=== PATIENT | female | born 1970 | race African-American/Black ===

== ENCOUNTER 2017-05-09 12:22 | Inpatient (IN) | payer MEDICARE, OTHER ==
[2017-05-09] MEDS ORDERED: LORazepam 2 MG/ML INJ IV STA ×2 (12:26→15:43)
[2017-05-09] MEDS ORDERED: diphenhydrAMINE 50 MG/ML 1 ML VIAL IVP STA (12:54)
[2017-05-09 12:56] LABS: Basophils # (A) 0.1 k/uL (0-0.2); Basophils % (A) 0 %; Eosinophils # (A) 0.5 k/uL (0-0.7); Eosinophils % (A) 4 %; HCT 40.7 % (34.0-46.0); HGB 12.9 gm/dL (11.4-16.0); Lymphocytes # (A) 3.8 k/uL (1.0-4.8); Lymphocytes % (A) 29 %; MCH 27.5 pg (25.0-35.0); MCHC 31.7 g/dL (31.0-37.0); MCV 86.7 fL (80.0-100.0); Mean Platelet Volume 7.1; Monocytes # (A) 0.6 k/uL (0-1.0); Monocytes % (A) 5 %; Neutrophils # (A) 7.8 k/uL (1.3-7.7); Neutrophils % (A) 60 %; Platelet Count 527 k/uL (150-450)
[2017-05-09 12:59] LABS: Appearance,Urine Clear (Clear); Bacteria,Urine Rare /hpf; Bilirubin,Urine Negative (Negative); Blood,Urine Negative (Negative); Color,Urine Yellow; Glucose,Urine (UA) Negative (Negative); Ketones,Urine Negative (Negative); Leukocyte Esterase,Urine Negative (Negative); Mucus,Urine Many /hpf; Nitrite,Urine Negative (Negative); Protein,Urine 1+ (Negative); RBC,Urine 2 /hpf (0-5); Specific Gravity,Urine 1.028 (1.001-1.035); Squamous Epithelial Cell,Urine 2 /hpf (0-4); WBC,Urine 2 /hpf (0-5)
--- NOTE | 2017-05-09 13:03 | ED ---
General Adult HPI - General Chief complaint: Altered Mental Status Stated complaint: altered mental status Time Seen by Provider: 05/09/17 12:26 Source: EMS, RN notes reviewed, old records reviewed Mode of arrival: EMS Limitations: no limitations - History of Present Illness Initial comments: 47-year-old female presenting with suspected overdose. No history obtained from the patient. EMS report family member stated that she has had involuntary movements throughout the day today. She is alert and oriented 1. She will follow simple commands but is not answering any questions. Patient's brother states that he believes this was a suicide attempt, she took an unknown amount of medication. He states she has been depressed over the past several days. Gabapentin and Abilify prescriptions are brought in by EMS, does appear to be significant amount of absent gabapentin. - Related Data Home Medications Medication Instructions Recorded Confirmed Gabapentin 600 mg PO QID 06/15/14 05/09/17 ARIPiprazole [Abilify] 5 mg PO HS 05/09/17 05/09/17 DULoxetine HCL [Cymbalta] 60 mg PO DAILY 05/09/17 05/09/17 HYDROcodone/APAP 10-325MG [[place] 1 tab PO TID PRN 05/09/17 05/09/17 10-325] Levothyroxine Sodium [Synthroid] 100 mcg PO DAILY 05/09/17 05/09/17 Meloxicam [Mobic] 7.5 mg PO BID PRN 05/09/17 05/09/17 Omeprazole 20 mg PO DAILY 05/09/17 05/09/17 Thyroid, Pork [[place] Thyroid] 30 mg PO DAILY 05/09/17 05/09/17 rOPINIRole HCL [Requip] 0.5 mg PO HS 05/09/17 05/09/17 Allergies Allergy/AdvReac Type Severity Reaction Status Date / Time No Known Allergies Allergy Verified 05/09/17 12:57 Review of Systems ROS Statement: Those systems with pertinent positive or pertinent negative responses have been documented in the HPI. ROS Other: All systems not noted in ROS Statement are negative. Past Medical History Past Medical History: Thyroid Disorder Additional Past Medical History / Comment(s): THYROID NODULE, CHRONIC BACK PAIN History of Any Multi-Drug Resistant Organisms: None Reported Past Surgical History: Back Surgery, Section, Hysterectomy, Tonsillectomy Additional Past Surgical History / Comment(s): [place] CERVICAL FUSION X2 Past Anesthesia/Blood Transfusion Reactions: No Reported Reaction Past Psychological History: No Psychological Hx Reported Smoking Status: Current every day smoker Past Alcohol Use History: Unable to Obtain Past Drug Use History: Unable to Obtain - Past Family History Mother Family Medical History: Cancer Additional Family Medical History / Comment(s): LUNG General Exam Limitations: no limitations General appearance: alert, anxious Head exam: Present: atraumatic, normocephalic Eye exam: Present: normal appearance, PERRL Neck exam: Present: normal inspection. Absent: tenderness, meningismus Respiratory exam: Present: normal lung sounds bilaterally. Absent: respiratory distress Cardiovascular Exam: Present: regular rate, normal rhythm GI/Abdominal exam: Present: soft, diminished bowel sounds. Absent: distended, tenderness Extremities exam: Present: normal inspection, full ROM, normal capillary refill. Absent: pedal edema, calf tenderness Neurological exam: Absent: oriented X3, motor sensory deficit Skin exam: Present: warm, dry, intact. Absent: cyanosis, diaphoretic Course Vital Signs 05/09/17 05/09/17 05/09/17 12:29 12:54 13:32 Temperature 99.0 F Pulse Rate 100 75 77 Respiratory 18 18 18 Rate Blood Pressure 175/101 148/68 155/69 O2 Sat by Pulse 98 100 100 Oximetry 05/09/17 14:58 Temperature Pulse Rate 86 Respiratory 16 Rate Blood Pressure 165/80 O2 Sat by Pulse 100 Oximetry - Reevaluation(s) Reevaluation #1: 05/09/17 15:18 Case discussed with poison control, they recommend monitoring QT, electrolyte replacement as needed, and intubation for airway protection as needed. Patient is currently having spontaneous movements, she has gag reflex, she is protecting her airway. EKG Findings - EKG Comments: EKG Findings:: EKG obtained at 1245, shows normal sinus rhythm with sinus arrhythmia, prolonged QT at 483, ventricular rate 78, [place] interval 132, QRS duration 88. Repeat EKG at 1454 shows normal sinus rhythm with sinus arrhythmia , prolonged QT at 497, ventricular rate 78, [place] interval 128, QRS duration 94 Medical Decision Making - Medical Decision Making 47 old female presenting with suspected gabapentin overdose. Patient has nonfocal neurological exam. She is moving all extremities on initial evaluation , she is unable to give history, history obtained from EMS and the patient's family. Her brother believes this was a suicide attempt. CT is obtained, negative for acute intracranial hemorrhage or mass effect. Chest x-ray negative for focal pneumonia or acute findings. Mild leukocytosis at 13.0, electrolytes within normal limits. Urine drug screen positive for TCA, alcohol , Tylenol, and salicylates are negative. Case discussed with poison control, they recommend supportive care, monitoring electrolytes. Patient is observed in the emergency department for 4 hours, she has no deterioration in her respiratory status, she has positive gag, she is protecting her airway and handling her secretions. She will be admitted awaiting return to baseline mental status, poison control Will follow, psychiatry will be placed on consult for evaluation of suicide attempt. - Lab Data Result diagrams: 05/09/17 12:38 05/09/17 12:38 Lab Results 05/09/17 05/09/17 05/09/17 Range/Units 12:38 12:38 12:38 WBC 13.0 H (3.8-10.6) k/uL RBC 4.70 (3.80-5.40) m/uL Hgb 12.9 (11.4-16.0) gm/dL Hct 40.7 (34.0-46.0) % MCV 86.7 (80.0-100.0) fL MCH 27.5 (25.0-35.0) pg MCHC 31.7 (31.0-37.0) g/dL RDW 15.0 (11.5-15.5) % Plt Count 527 H (150-450) k/uL Neutrophils % 60 % Lymphocytes % 29 % Monocytes % 5 % Eosinophils % 4 % Basophils % 0 % Neutrophils # 7.8 H (1.3-7.7) k/uL Lymphocytes # 3.8 (1.0-4.8) k/uL Monocytes # 0.6 (0-1.0) k/uL Eosinophils # 0.5 (0-0.7) k/uL Basophils # 0.1 (0-0.2) k/uL PT (9.0-12.0) sec INR (<1.2) APTT (22.0-30.0) sec Sodium 141 (137-145) mmol/L Potassium 4.8 (3.5-5.1) mmol/L Chloride 106 (98-107) mmol/L Carbon Dioxide 25 (22-30) mmol/L Anion Gap 10 mmol/L BUN 19 H (7-17) mg/dL Creatinine 0.80 (0.52-1.04) mg/dL Est GFR (CKD-EPI)AfAm >90 (>60 ml/min/1.73 sqM) Est GFR (CKD-EPI)NonAf 88 (>60 ml/min/1.73 sqM) Glucose 111 H (74-99) mg/dL Plasma Lactic Acid Simón (0.7-2.0) mmol/L Calcium 10.1 (8.4-10.2) mg/dL Phosphorus (2.5-4.5) mg/dL Magnesium (1.6-2.3) mg/dL Total Bilirubin 0.2 (0.2-1.3) mg/dL AST 14 (14-36) U/L ALT 11 (9-52) U/L Alkaline Phosphatase 96 (38-126) U/L Ammonia (<30) umol/L Total Creatine Kinase 68 (30-135) U/L CK-MB (CK-2) 0.5 (0.0-2.4) ng/mL CK-MB (CK-2) Rel Index 0.7 Troponin I <0.012 (0.000-0.034) ng/mL Total Protein 7.8 (6.3-8.2) g/dL Albumin 4.1 (3.5-5.0) g/dL Urine Color Urine Appearance (Clear) Urine pH (5.0-8.0) Ur Specific [place] (1.001-1.035) Urine Protein (Negative) Urine Glucose (UA) (Negative) Urine Ketones (Negative) Urine Blood (Negative) Urine Nitrite (Negative) Urine Bilirubin (Negative) Urine Urobilinogen (<2.0) mg/dL Ur Leukocyte Esterase (Negative) Urine RBC (0-5) /hpf Urine WBC (0-5) /hpf Ur Squamous Epith Cells (0-4) /hpf Urine Bacteria (None) /hpf Urine Mucus (None) /hpf Salicylates mg/dL Urine Opiates Screen (NotDetected) Ur Oxycodone Screen (NotDetected) Urine Methadone Screen (NotDetected) Ur Propoxyphene Screen (NotDetected) Acetaminophen ug/mL Ur Barbiturates Screen (NotDetected) U Tricyclic Antidepress (NotDetected) Ur Phencyclidine Scrn (NotDetected) Ur Amphetamines Screen (NotDetected) U Methamphetamines Scrn (NotDetected) U Benzodiazepines Scrn (NotDetected) Urine Cocaine Screen (NotDetected) U Marijuana (THC) Screen (NotDetected) Serum Alcohol mg/dL 05/09/17 05/09/17 05/09/17 Range/Units 12:38 12:38 12:38 WBC (3.8-10.6) k/uL RBC (3.80-5.40) m/uL Hgb (11.4-16.0) gm/dL Hct (34.0-46.0) % MCV (80.0-100.0) fL MCH (25.0-35.0) pg MCHC (31.0-37.0) g/dL RDW (11.5-15.5) % Plt Count (150-450) k/uL Neutrophils % % Lymphocytes % % Monocytes % % Eosinophils % % Basophils % % Neutrophils # (1.3-7.7) k/uL Lymphocytes # (1.0-4.8) k/uL Monocytes # (0-1.0) k/uL Eosinophils # (0-0.7) k/uL Basophils # (0-0.2) k/uL PT 9.4 (9.0-12.0) sec INR 0.9 (<1.2) APTT 22.6 (22.0-30.0) sec Sodium (137-145) mmol/L Potassium (3.5-5.1) mmol/L Chloride (98-107) mmol/L Carbon Dioxide (22-30) mmol/L Anion Gap mmol/L BUN (7-17) mg/dL Creatinine (0.52-1.04) mg/dL Est GFR (CKD-EPI)AfAm (>60 ml/min/1.73 sqM) Est GFR (CKD-EPI)NonAf (>60 ml/min/1.73 sqM) Glucose (74-99) mg/dL Plasma Lactic Acid Simón 2.1 H* (0.7-2.0) mmol/L Calcium (8.4-10.2) mg/dL Phosphorus (2.5-4.5) mg/dL Magnesium (1.6-2.3) mg/dL Total Bilirubin (0.2-1.3) mg/dL AST (14-36) U/L ALT (9-52) U/L Alkaline Phosphatase (38-126) U/L Ammonia 22 (<30) umol/L Total Creatine Kinase (30-135) U/L CK-MB (CK-2) (0.0-2.4) ng/mL CK-MB (CK-2) Rel Index Troponin I (0.000-0.034) ng/mL Total Protein (6.3-8.2) g/dL Albumin (3.5-5.0) g/dL Urine Color Yellow Urine Appearance Clear (Clear) Urine pH 6.0 (5.0-8.0) Ur Specific [place] 1.028 (1.001-1.035) Urine Protein 1+ H (Negative) Urine Glucose (UA) Negative (Negative) Urine Ketones Negative (Negative) Urine Blood Negative (Negative) Urine Nitrite Negative (Negative) Urine Bilirubin Negative (Negative) Urine Urobilinogen 3.0 (<2.0) mg/dL Ur Leukocyte Esterase Negative (Negative) Urine RBC 2 (0-5) /hpf Urine WBC 2 (0-5) /hpf Ur Squamous Epith Cells 2 (0-4) /hpf Urine Bacteria Rare H (None) /hpf Urine Mucus Many H (None) /hpf Salicylates mg/dL Urine Opiates Screen Not Detected (NotDetected) Ur Oxycodone Screen Not Detected (NotDetected) Urine Methadone Screen Not Detected (NotDetected) Ur Propoxyphene Screen Not Detected (NotDetected) Acetaminophen ug/mL Ur Barbiturates Screen Not Detected (NotDetected) U Tricyclic Antidepress Detected H (NotDetected) Ur Phencyclidine Scrn Not Detected (NotDetected) Ur Amphetamines Screen Not Detected (NotDetected) U Methamphetamines Scrn Not Detected (NotDetected) U Benzodiazepines Scrn Not Detected (NotDetected) Urine Cocaine Screen Not Detected (NotDetected) U Marijuana (THC) Screen Not Detected (NotDetected) Serum Alcohol mg/dL 05/09/17 05/09/17 05/09/17 Range/Units 13:59 15:10 15:10 WBC (3.8-10.6) k/uL RBC (3.80-5.40) m/uL Hgb (11.4-16.0) gm/dL Hct (34.0-46.0) % MCV (80.0-100.0) fL MCH (25.0-35.0) pg MCHC (31.0-37.0) g/dL RDW (11.5-15.5) % Plt Count (150-450) k/uL Neutrophils % % Lymphocytes % % Monocytes % % Eosinophils % % Basophils % % Neutrophils # (1.3-7.7) k/uL Lymphocytes # (1.0-4.8) k/uL Monocytes # (0-1.0) k/uL Eosinophils # (0-0.7) k/uL Basophils # (0-0.2) k/uL PT (9.0-12.0) sec INR (<1.2) APTT (22.0-30.0) sec Sodium (137-145) mmol/L Potassium (3.5-5.1) mmol/L Chloride (98-107) mmol/L Carbon Dioxide (22-30) mmol/L Anion Gap mmol/L BUN (7-17) mg/dL Creatinine (0.52-1.04) mg/dL Est GFR (CKD-EPI)AfAm (>60 ml/min/1.73 sqM) Est GFR (CKD-EPI)NonAf (>60 ml/min/1.73 sqM) Glucose (74-99) mg/dL Plasma Lactic Acid Simón 1.2 (0.7-2.0) mmol/L Calcium (8.4-10.2) mg/dL Phosphorus 4.4 (2.5-4.5) mg/dL Magnesium 2.1 (1.6-2.3) mg/dL Total Bilirubin (0.2-1.3) mg/dL AST (14-36) U/L ALT (9-52) U/L Alkaline Phosphatase (38-126) U/L Ammonia (<30) umol/L Total Creatine Kinase (30-135) U/L CK-MB (CK-2) (0.0-2.4) ng/mL CK-MB (CK-2) Rel Index Troponin I (0.000-0.034) ng/mL Total Protein (6.3-8.2) g/dL Albumin (3.5-5.0) g/dL Urine Color Urine Appearance (Clear) Urine pH (5.0-8.0) Ur Specific [place] (1.001-1.035) Urine Protein (Negative) Urine Glucose (UA) (Negative) Urine Ketones (Negative) Urine Blood (Negative) Urine Nitrite (Negative) Urine Bilirubin (Negative) Urine Urobilinogen (<2.0) mg/dL Ur Leukocyte Esterase (Negative) Urine RBC (0-5) /hpf Urine WBC (0-5) /hpf Ur Squamous Epith Cells (0-4) /hpf Urine Bacteria (None) /hpf Urine Mucus (None) /hpf Salicylates <1.0 mg/dL Urine Opiates Screen (NotDetected) Ur Oxycodone Screen (NotDetected) Urine Methadone Screen (NotDetected) Ur Propoxyphene Screen (NotDetected) Acetaminophen <10.0 ug/mL Ur Barbiturates Screen (NotDetected) U Tricyclic Antidepress (NotDetected) Ur Phencyclidine Scrn (NotDetected) Ur Amphetamines Screen (NotDetected) U Methamphetamines Scrn (NotDetected) U Benzodiazepines Scrn (NotDetected) Urine Cocaine Screen (NotDetected) U Marijuana (THC) Screen (NotDetected) Serum Alcohol <10 mg/dL Critical Care Time Critical Care Time: Yes Total Critical Care Time: 35 Disposition Clinical Impression: Gabapentin overdose, Suicide attempt Disposition: ADMITTED IP TO THIS [facility] Condition: Serious Referrals: Mendy Augustine DO [Primary Care Provider] - 1-2 days Decision to Admit Reason: Admit from EC Decision Date: 05/09/17 Decision Time: 16:06
[2017-05-09 13:07] LABS: Amphetamine Screen,Urine Not Detected (NotDetected); Barbiturate Screen,Urine Not Detected (NotDetected); Benzodiazepines Screen,Urine Not Detected (NotDetected); Cocaine Screen,Urine Not Detected (NotDetected); INR 0.9 (<1.2); Methadone Screen, Urine Not Detected (NotDetected); Opiate Screen,Urine Not Detected (NotDetected); Oxycodone Screen, Urine Not Detected (NotDetected); Partial Thromboplastin Time 22.6 sec (22.0-30.0); Phencyclidine Screen,Urine Not Detected (NotDetected); Prothrombin Time 9.4 sec (9.0-12.0); Tricyclic Antidepressant,Urine Detected (NotDetected); Urn Cannabinoid Scrn Not Detected (NotDetected)
[2017-05-09 13:16] LABS: ALT 11 U/L (9-52); AST 14 U/L (14-36); Albumin 4.1 g/dL (3.5-5.0); Alkaline Phosphatase 96 U/L (38-126); Anion Gap 10 mmol/L; Blood Urea Nitrogen 19 mg/dL (7-17); Calcium 10.1 mg/dL (8.4-10.2); Carbon Dioxide 25 mmol/L (22-30); Chloride 106 mmol/L (98-107); Glucose 111 mg/dL (74-99); Potassium 4.8 mmol/L (3.5-5.1); Sodium 141 mmol/L (137-145); Total Bilirubin 0.2 mg/dL (0.2-1.3); Total Protein 7.8 g/dL (6.3-8.2)
[2017-05-09 13:22] LABS: Lactic Acid, Venous 2.1 mmol/L (0.7-2.0)
[2017-05-09 13:23] LABS: Creatine Kinase 68 U/L (30-135)
[2017-05-09 13:36] LABS: Creatine Kinase MB 0.5 ng/mL (0.0-2.4); Troponin I <0.012 ng/mL (0.000-0.034)
--- NOTE | 2017-05-09 13:42 | CT ---
EXAMINATION TYPE: CT brain wo con DATE OF EXAM: 05/09/2017 COMPARISON: NONE HISTORY: Patient poor historian. Patient unresponsive at time of exam. CT DLP: 796 mGycm. Automated Exposure Control for Dose Reduction was Utilized. TECHNIQUE: CT scan of the head is performed without contrast. FINDINGS: There is no acute intracranial hemorrhage, mass effect, or midline shift identified. The ventricles and sulci are within normal limits in size. Dowd-white matter differentiation is preserve d. There is mild mucosal thickening in visualized portion of ethmoid sinuses. Remainder paranasal sin uses are clear. The visualized globes are intact bilaterally. IMPRESSION: No acute intracranial hemorrhage, mass effect, or midline shift is seen.
[2017-05-09] MEDS ORDERED: SODIUM CHLORIDE 0.9% 1,000 ML IV ONE (14:02)
--- NOTE | 2017-05-09 14:15 | XR ---
EXAMINATION TYPE: XR chest 1V portable DATE OF EXAM: 05/09/2017 COMPARISON: Chest x-ray October 03, 2012 HISTORY: Altered mental status and weakness. TECHNIQUE: Single AP portable frontal upright view of the chest is obtained. FINDINGS: Point separation is seen on current study. There is no focal air space opacity, pleural ef fusion, or pneumothorax seen. The cardiac silhouette size is mildly enlarged but may be exaggerated by poor inspiration. Anterior fusion plate lower cervical spine is seen. IMPRESSION: Poor inspiration without suspicious acute pulmonary process.
[2017-05-09 14:19] LABS: Acetaminophen <10.0 ug/mL; Alcohol <10 mg/dL; Salicylate <1.0 mg/dL
[2017-05-09 15:38] LABS: Magnesium 2.1 mg/dL (1.6-2.3); Phosphorus 4.4 mg/dL (2.5-4.5)
[2017-05-09] MEDS ORDERED: NALOXONE 0.4 MG/ML 1 ML VIAL IV PRN (16:07)
[2017-05-09 19:02] LABS: Glucose,Whole Blood 99 mg/dL (75-99)
[2017-05-09 20:39] VITALS: BMI 31.6
[2017-05-09] MEDS: SODIUM CHLORIDE 0.9% 1,000 ML IV SCH (21:28)
[2017-05-09] MEDS: LORazepam 2 MG/ML INJ IV PRN (22:14)
[2017-05-10] MEDS: LORazepam 2 MG/ML INJ IV PRN ×2 (03:51→11:07)
[2017-05-10 05:25] LABS: Basophils # (A) 0.1 k/uL (0-0.2); Basophils % (A) 1 %; Eosinophils # (A) 0.1 k/uL (0-0.7); Eosinophils % (A) 1 %; HCT 41.1 % (34.0-46.0); HGB 13.2 gm/dL (11.4-16.0); Lymphocytes # (A) 2.5 k/uL (1.0-4.8); Lymphocytes % (A) 23 %; MCH 27.8 pg (25.0-35.0); MCHC 32.1 g/dL (31.0-37.0); MCV 86.6 fL (80.0-100.0); Mean Platelet Volume 6.9; Monocytes # (A) 0.5 k/uL (0-1.0); Monocytes % (A) 5 %; Neutrophils # (A) 7.8 k/uL (1.3-7.7); Neutrophils % (A) 70 %; Platelet Count 496 k/uL (150-450); RBC 4.74 m/uL (3.80-5.40); RDW 14.7 % (11.5-15.5); WBC 11.1 k/uL (3.8-10.6)
[2017-05-10 05:40] LABS: ALT 10 U/L (9-52); AST 13 U/L (14-36); Albumin 3.8 g/dL (3.5-5.0); Alkaline Phosphatase 101 U/L (38-126); Anion Gap 10 mmol/L; Blood Urea Nitrogen 12 mg/dL (7-17); Calcium 9.8 mg/dL (8.4-10.2); Carbon Dioxide 25 mmol/L (22-30); Chloride 108 mmol/L (98-107); Glucose 111 mg/dL (74-99); Magnesium 1.9 mg/dL (1.6-2.3); Phosphorus 4.8 mg/dL (2.5-4.5); Potassium 4.3 mmol/L (3.5-5.1); Sodium 143 mmol/L (137-145); Total Bilirubin 0.3 mg/dL (0.2-1.3); Total Protein 7.3 g/dL (6.3-8.2)
[2017-05-10] MEDS: PANTOPRAZOLE 40 MG/10 ML VIAL IV SCH (08:46)
--- NOTE | 2017-05-10 11:17 | P.HPIM ---
History of Present Illness H&P Date: 05/10/17 Lakisha Kingsley is a 47-year-old female who presented to [facility] emergency room with suspected medication overdose. No history obtained from the patient. EMS report family member stated that she has had involuntary movements throughout the day today. On presentation to emergency room she was alert and oriented 1. She will follow simple commands but is not answering any questions. Patient's brother states that he believes this was a suicide attempt, she took an unknown amount of medication. He states she has been depressed over the past several days. Gabapentin and Abilify prescriptions were brought in by EMS, does appear to be significant amount of absent gabapentin. Patient was evaluated in the emergency room and admitted to intensive care unit she was alert, but not responsive to any questions, she was having frequent repetitive movements, and had occasional spikes in her blood pressure, she was receiving Ativan 0.5 mg IV every 6 hours when necessary. Critical care consultation and psychiatry consultation were requested in the emergency room. Past Medical History Past Medical History: Thyroid Disorder Additional Past Medical History / Comment(s): THYROID NODULE, CHRONIC BACK PAIN History of Any Multi-Drug Resistant Organisms: None Reported Past Surgical History: Back Surgery, Section, Hysterectomy, Tonsillectomy Additional Past Surgical History / Comment(s): CERVICAL FUSION X2 Past Anesthesia/Blood Transfusion Reactions: No Reported Reaction Smoking Status: Current every day smoker - Past Family History Mother Family Medical History: Cancer Additional Family Medical History / Comment(s): LUNG Medications and Allergies Home Medications Medication Instructions Recorded Confirmed Type Gabapentin 600 mg PO QID 06/15/14 05/09/17 History ARIPiprazole [Abilify] 5 mg PO HS 05/09/17 05/09/17 History DULoxetine HCL [Cymbalta] 60 mg PO DAILY 05/09/17 05/09/17 History HYDROcodone/APAP 10-325MG [[place] 1 tab PO TID PRN 05/09/17 05/09/17 History 10-325] Levothyroxine Sodium [Synthroid] 100 mcg PO DAILY 05/09/17 05/09/17 History Meloxicam [Mobic] 7.5 mg PO BID PRN 05/09/17 05/09/17 History Omeprazole 20 mg PO DAILY 05/09/17 05/09/17 History Thyroid, Pork [[place] Thyroid] 30 mg PO DAILY 05/09/17 05/09/17 History rOPINIRole HCL [Requip] 0.5 mg PO HS 05/09/17 05/09/17 History Allergies Allergy/AdvReac Type Severity Reaction Status Date / Time No Known Allergies Allergy Verified 05/09/17 12:57 Physical Exam Vitals: Vital Signs Temp Pulse Pulse Resp BP BP Pulse Ox 05/10/17 10:00 116 H 16 170/96 05/10/17 09:30 119 H 16 196/91 100 05/10/17 09:00 120 H 22 196/91 100 05/10/17 08:30 117 H 28 H 135/75 98 05/10/17 08:00 97.9 F 131 H 25 H 135/75 80 L 05/10/17 07:30 120 H 24 125/94 58 L 05/10/17 07:00 125 H 29 H 179/105 68 L 05/10/17 06:30 110 H 21 05/10/17 06:00 122 H 53 H 149/87 86 L 05/10/17 05:30 120 H 28 H 161/81 96 05/10/17 05:00 97.5 F L 107 H 16 161/108 99 05/10/17 04:30 108 H 45 H 91/70 92 L 05/10/17 04:00 106 H 86 16 101/84 100 05/10/17 03:30 105 H 16 172/97 98 05/10/17 03:00 111 H 46 H 146/99 89 L 05/10/17 01:30 110 H 19 138/59 100 05/10/17 01:00 111 H 26 H 92 L 05/10/17 00:30 109 H 39 H 147/68 95 05/10/17 00:01 113 H 17 137/77 96 05/10/17 00:00 123 H 86 61 H 137/77 98 05/09/17 23:30 101 H 15 155/94 98 05/09/17 23:00 99 16 152/82 99 05/09/17 22:40 97 20 130/74 100 05/09/17 20:45 86 14 146/84 100 05/09/17 20:20 90 22 149/84 97 05/09/17 20:00 14 05/09/17 19:35 97.4 F L 96 22 140/72 94 L 03/10/18 18:38 82 18 160/67 98 05/09/17 17:00 87 18 169/103 100 05/09/17 15:58 83 20 165/79 100 05/09/17 14:58 86 16 165/80 100 05/09/17 13:32 77 18 155/69 100 05/09/17 12:54 75 18 148/68 100 05/09/17 12:29 99.0 F 100 18 175/101 98 Intake and Output 05/09/17 05/10/17 05/10/17 21:59 06:59 14:59 Intake Total 200 Output Total 315 Balance -115 Intake: IV 200 Sodium Chloride 0.9% 1, 200 000 ml @ 50 mls/hr IV . Q20H [facility] Rx#:[id number] Output: Urine 315 Other: Voiding Method Indwelling Catheter # Bowel Movements 1 Weight In general patient is alert, nonverbal, in no apparent distress HEENT head normocephalic and atraumatic Neck is supple no JVD no goiter no lymphadenopathy Chest exam reveals a few scattered crackles no wheezing Cardiac exam reveals regular heart sounds S1 and S2 no gallops no murmurs Abdomen is soft nontender no organomegaly Extremity exam reveals no edema no cyanosis or clubbing Results CBC & Chem 7: 05/10/17 03:11 05/10/17 03:11 Labs: Abnormal Lab Results - Last 24 Hours (Table) 05/09/17 05/09/17 05/09/17 Range/Units 12:38 12:38 12:38 WBC 13.0 H (3.8-10.6) k/uL Plt Count 527 H (150-450) k/uL Neutrophils # 7.8 H (1.3-7.7) k/uL Chloride (98-107) mmol/L BUN 19 H (7-17) mg/dL Glucose 111 H (74-99) mg/dL Plasma Lactic Acid Simón (0.7-2.0) mmol/L Phosphorus (2.5-4.5) mg/dL AST (14-36) U/L Urine Protein 1+ H (Negative) Urine Bacteria Rare H (None) /hpf Urine Mucus Many H (None) /hpf U Tricyclic Antidepress Detected H (NotDetected) 05/09/17 05/10/17 05/10/17 Range/Units 12:38 03:11 03:11 WBC 11.1 H (3.8-10.6) k/uL Plt Count 496 H (150-450) k/uL Neutrophils # 7.8 H (1.3-7.7) k/uL Chloride 108 H (98-107) mmol/L BUN (7-17) mg/dL Glucose 111 H (74-99) mg/dL Plasma Lactic Acid [place] 2.1 H* (0.7-2.0) mmol/L Phosphorus 4.8 H (2.5-4.5) mg/dL AST 13 L (14-36) U/L Urine Protein (Negative) Urine Bacteria (None) /hpf Urine Mucus (None) /hpf U Tricyclic Antidepress (NotDetected) Microbiology - Last 24 Hours (Table) 05/09/17 20:30 Urine Culture - Preliminary Urine,Catheterized Thrombosis Risk Factor Assmnt - Choose All That Apply Any of the Below Risk Factors Present?: Yes Each Factor Represents 1 point: Age 41-60 years, Medical pt on bed rest, Obesity (BMI >25) Other Risk Factors: No Other congenital or acquired thrombophilia - If yes, enter type in comment: No Thrombosis Risk Factor Assessment Total Risk Factor Score: 3 Thrombosis Risk Factor Assessment Level: Moderate Risk Assessment and Plan Plan: #1 suspected gabapentin overdose #2 suspected suicide attempt #3 mild leukocytosis, improving #4 underlying history of depression #5 underlying history of chronic back pain At this time patient is monitored in ICU, she is treated symptomatically with Ativan She is having frequent repetitive movements, patient is alert and nonverbal Will consult neurology Continue with current care otherwise Patient will need to be transferred to the psychiatry unit when medically clear
[2017-05-10] MEDS ORDERED: ENALAPRILAT 1.25 MG/ML 1 ML VIAL IVP PRN (11:52)
[2017-05-10] MEDS: HEPARIN SODIUM,PORCINE 5,000 UNIT/ML 1 ML VIAL SQ SCH ×2 (13:18→23:42)
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
--- NOTE | 2017-05-10 15:07 | P.CNNES ---
History of Present Illness Consult date: 05/10/17 Reason for Consult: Patient admitted with drug overdose and toxicity. History of Present Illness: This patient is a 47-year-old right-handed -Lebanese female who was brought into the emergency room for evaluation of possible drug overdose. According to the ER note the patient was having involuntary movements and was very confused and disoriented and for this reason EMS was called to the home. She was transported to the emergency room where she was seen in the ER yesterday by Dr. Van. She was very confused and not answering questions there and history was obtained from a brother who apparently told the ER physician that she had possibly overdosed on gabapentin and Abilify. Poison control was notified. According to the ER note the brother felt this was a suicide attempt. Apparently she has been depressed over the past several weeks and has been taking prescription medications including gabapentin and Abilify. She was sent for a computed tomography scan of the brain which revealed no acute intracranial hemorrhage or mass effect. There was no midline shift. She was then transferred to the intensive care unit where she is now currently being examined. The patient still remains very withdrawn but is able to answer some simple questions. She is hard to get an appropriate answer to questions as she appears slightly encephalopathic. As noted poison control has been notified and she is being closely monitored. On her initial presentation she appeared to have some involuntary movements which are no longer seen today in the ICU. She does have a sitter at her bedside. No family members were present at this time for further history. Apparently this is the first possible suicide attempt for her. Since her initial presentation she is more talkative as she was quite obtunded when initially admitted to the ICU last night. According to the ER notes the patient apparently was overusing her Neurontin and may have accidentally taken excessive amounts. She had communicated to family members that she was more depressed. It is unclear who prescribes her Abilify for her and they further evaluation of her pill counts is yet to be completed. Patient is to be seen by psychiatry later today. Her clinical history is one of acute encephalopathy at this time based on her current neurological findings in the intensive care unit. There is also mild delirium which appears to be slowly improving since admission to hospital. The patient currently is able to answer yes and no to questions. She is not able to elaborate on specific questions. We will await further recommendations from psychiatry regarding this patient overall psychiatric assessment. She may require inpatient psychiatric treatment as well and we will await their recommendations. We have question the sitter who is at bedside who states she has not seen any muscle twitching or myoclonic jerks most of this day. Apparently yesterday this was more noticeable. Patient denies any previous history of seizures or head injury. As noted CAT scan of the brain results are as noted above. Her overall prognosis at this time remains guarded. Neurology is now been consulted for further evaluation and recommendations. Review of Systems Constitutional: Denies chills, Denies fever Eyes: denies blurred vision, denies pain Ears, nose, mouth and throat: Denies headache, Denies sore throat Cardiovascular: Denies chest pain, Denies shortness of breath Respiratory: Denies cough Gastrointestinal: Denies abdominal pain, Denies diarrhea, Denies nausea, Denies vomiting Genitourinary: Denies dysuria, Denies hematuria Musculoskeletal: Denies myalgias Integumentary: Denies pruritus, Denies rash Neurological: Reports confusion, Reports memory loss, Reports tremors, Denies numbness, Denies weakness Psychiatric: Reports mood swings, Reports sadness/tearfulness, Denies anxiety, Denies depression Endocrine: Denies fatigue, Denies weight change Past Medical History Past Medical History: Thyroid Disorder Additional Past Medical History / Comment(s): THYROID NODULE, CHRONIC BACK PAIN History of Any Multi-Drug Resistant Organisms: None Reported Past Surgical History: Back Surgery, Section, Hysterectomy, Tonsillectomy Additional Past Surgical History / Comment(s): CERVICAL FUSION X2 Past Anesthesia/Blood Transfusion Reactions: No Reported Reaction Smoking Status: Current every day smoker - Past Family History Mother Family Medical History: Cancer Additional Family Medical History / Comment(s): LUNG Medications and Allergies Home Medications Medication Instructions Recorded Confirmed Type Gabapentin 600 mg PO QID 06/15/14 05/09/17 History ARIPiprazole [Abilify] 5 mg PO HS 05/09/17 05/09/17 History DULoxetine HCL [Cymbalta] 60 mg PO DAILY 05/09/17 05/09/17 History HYDROcodone/APAP 10-325MG [[place] 1 tab PO TID PRN 05/09/17 05/09/17 History 10-325] Levothyroxine Sodium [Synthroid] 100 mcg PO DAILY 05/09/17 05/09/17 History Meloxicam [Mobic] 7.5 mg PO BID PRN 05/09/17 05/09/17 History Omeprazole 20 mg PO DAILY 05/09/17 05/09/17 History Thyroid, Pork [[place] Thyroid] 30 mg PO DAILY 05/09/17 05/09/17 History rOPINIRole HCL [Requip] 0.5 mg PO HS 05/09/17 05/09/17 History Allergies Allergy/AdvReac Type Severity Reaction Status Date / Time No Known Allergies Allergy Verified 05/09/17 12:57 Physical Examination - Vital Signs Vital Signs: Vital Signs Temp Pulse Pulse Resp BP BP Pulse Ox 05/10/17 13:00 109 H 22 159/76 93 L 05/10/17 12:30 122 H 23 180/80 100 05/10/17 12:00 97.1 F L 122 H 16 208/92 100 05/10/17 11:30 117 H 22 184/94 90 L 05/10/17 11:00 108 H 20 154/74 93 L 05/10/17 10:00 116 H 16 170/96 05/10/17 09:30 119 H 16 196/91 100 05/10/17 09:00 120 H 22 196/91 100 05/10/17 08:30 117 H 28 H 135/75 98 05/10/17 08:00 97.9 F 131 H 25 H 135/75 80 L 05/10/17 07:30 120 H 24 125/94 58 L 05/10/17 07:00 125 H 29 H 179/105 68 L 05/10/17 06:30 110 H 21 05/10/17 06:00 122 H 53 H 149/87 86 L 05/10/17 05:30 120 H 28 H 161/81 96 05/10/17 05:00 97.5 F L 107 H 16 161/108 99 05/10/17 04:30 108 H 45 H 91/70 92 L 05/10/17 04:00 106 H 86 16 101/84 100 05/10/17 03:30 105 H 16 172/97 98 05/10/17 03:00 111 H 46 H 146/99 89 L 05/10/17 01:30 110 H 19 138/59 100 05/10/17 01:00 111 H 26 H 92 L 03/11/18 00:30 109 H 39 H 147/68 95 05/10/17 00:01 113 H 17 137/77 96 05/10/17 00:00 123 H 86 61 H 137/77 98 05/09/17 23:30 101 H 15 155/94 98 05/09/17 23:00 99 16 152/82 99 05/09/17 22:40 97 20 130/74 100 05/09/17 20:45 86 14 146/84 100 05/09/17 20:20 90 22 149/84 97 05/09/17 20:00 14 05/09/17 19:35 97.4 F L 96 22 140/72 94 L 05/09/17 18:38 82 18 160/67 98 05/09/17 17:00 87 18 169/103 100 05/09/17 15:58 83 20 165/79 100 05/09/17 14:58 86 16 165/80 100 05/09/17 13:32 77 18 155/69 100 Intake and Output 05/09/17 05/10/17 05/10/17 21:59 06:59 14:59 Intake Total 350 Output Total 415 Balance -65 Intake: IV 350 Sodium Chloride 0.9% 1, 350 000 ml @ 50 mls/hr IV . Q20H [facility] Rx#:[id number] Output: Urine 415 Other: Voiding Method Indwelling Catheter # Bowel Movements 1 Weight - Constitutional General appearance: average body habitus, cooperative - EENT EENT: PERRL, mucous membranes moist - Respiratory Respiratory: lungs clear, normal breath sounds - Cardiovascular Cardiovascular: regular rate, normal S1, normal S2 Extremities: no peripheral edema bilaterally - Gastrointestinal Gastrointestinal: normoactive bowel sounds - Integumentary Integumentary: normal - Neurologic Cranial nerve examination: PERRL, V1/V2/V3 grossly intact, face symmetric, tongue midline, intact gag reflex, intact corneal reflex, normal palatal elevation Speech examination: intact Sensorimotor examination: intact Motor examination - right side: 4/5: biceps, triceps, wrist flexion, wrist extension, clinical cytogeneticist scientist, hip flexors, knee extensors, dorsiflexion, toe extension (EHL) , plantarflexion Motor examination - left side: 4/5: biceps, triceps, wrist flexion, wrist extension, clinical cytogeneticist scientist, hip flexors, knee extensors, dorsiflexion, toe extension (EHL) , plantarflexion Detailed sensory examination: intact Reflex and gait examination: intact Reflexes: 1+: ankle, bicep, knee, tricep - Musculoskeletal Musculoskeletal: no pain - Psychiatric Psychiatric: mood/affect appropriate, cooperative Results - Laboratory Findings CBC and BMP: 05/10/17 03:11 05/10/17 03:11 Abnormal Lab Findings: Abnormal Labs 05/09/17 05/09/17 05/09/17 12:38 12:38 12:38 WBC 13.0 H Plt Count 527 H Neutrophils # 7.8 H Chloride BUN 19 H Glucose 111 H Plasma Lactic Acid Simón Phosphorus AST Urine Protein 1+ H Urine Bacteria Rare H Urine Mucus Many H U Tricyclic Antidepress Detected H 05/09/17 05/10/17 05/10/17 12:38 03:11 03:11 WBC 11.1 H Plt Count 496 H Neutrophils # 7.8 H Chloride 108 H BUN Glucose 111 H Plasma Lactic Acid Simón 2.1 H* Phosphorus 4.8 H AST 13 L Urine Protein Urine Bacteria Urine Mucus U Tricyclic Antidepress Assessment and Plan (1) Gabapentin overdose Current Visit: Yes Status: Acute Code(s): T42.6X1A - POISONING BY OTH ANTIEPLPTC AND SED-HYPNTC DRUGS, ACC, INIT SNOMED Code(s): 860693735 (2) Acute encephalopathy Current Visit: Yes Status: Acute Code(s): G93.40 - ENCEPHALOPATHY, UNSPECIFIED SNOMED Code(s): 31110054 (3) Acute delirium Current Visit: Yes Status: Acute Code(s): R41.0 - DISORIENTATION, UNSPECIFIED SNOMED Code(s): 3811412 (4) Depression Current Visit: Yes Status: Acute Code(s): F32.9 - MAJOR DEPRESSIVE DISORDER , SINGLE EPISODE, UNSPECIFIED SNOMED Code(s): 20088205 Plan: This patient is a 47-year-old right-handed -L[place]anese female who was admitted to hospital after showing signs of drug overdose. Apparently she had overdosed on combination of gabapentin and Abilify. Actual pill count is still pending. She was brought into the emergency room for evaluation of altered mental status and involuntary movements of her body. She was seen in the ER by Dr. Van and was sent for a computed tomography scan of the brain. CAT scan of the brain failed to reveal any acute intracranial hemorrhage or mass effect. No midline shift was seen. Poison control was notified in the ER and she is being closely monitored. Patient was transferred to the intensive care unit where she is currently being evaluated. Neurology was consulted today to the ICU for further evaluation of possible drug overdose. She does not have any evidence of myoclonic jerks or seizure activity at this time. She does have a sitter at her bedside. She is very withdrawn and very hard to examine as she is not able to answer questions appropriately at this time. History was obtained from the medical records as well as the ER note. It is unclear whether the patient intentionally overdosed on these medications or this was a suicidal attempt. We will await further evaluations from psychiatry. The patient is now resting comfortably but is slightly encephalopathic and is hard to appropriately answer questions at this time. We reviewed the results of the CAT scan of the brain that was done today with the patient. She does have history of probable major depressive disorder and will need further evaluation by psychiatry. We will obtain a routine EEG for further evaluation. At this time there is no evidence of any underlying mild clonus or seizure-like episodes reported by the ICU nursing staff. In fact she is showing some improvement in her mental status from admission yesterday evening. We will continue close neurological follow-up with this patient in the intensive care unit that her overall prognosis at this time remains very guarded. Time with Patient: Greater than 30
--- NOTE | 2017-05-10 15:55 | P.CNPUL ---
History of Present Illness Consult date: 05/10/17 Chief complaint: Altered mentation, drug overdose History of present illness: 47-year-old -Sud[place] female patient, presented to the hospital with altered mentation. The patient was having involuntary movements at home and she was confused and disoriented. The son called EMS and the patient was found to be laying down confused with altered mentation and she was unable to answer questions and there was a concern that the patient had overdosed on a medication knowing that the patient had bottles of Abilify and gabapentin at the bedside. For that reason the patient was brought into the hospital. CAT scan of the brain was done that showed no acute abnormalities. Urine drug screen was positive for tricyclics otherwise the toxicology screen was negative including alcohol and salicylates. The patient was brought into the intensive care unit. She was able to protect her airways. No reported aspiration. The patient had a normal sinus rhythm without any cardiac arrhythmias or abnormalities noted. Poison control was notified and the recommendation was to monitor clinically the patient very closely. No seizure activity was noted. The patient however was noted to be having some labile moods. At times she would yell at that other times she would smile and laugh. Subsequently she will become drowsy and go back to sleep. She is obviously encephalopathic at this point in time. She was unable to recommend that she was in the hospital. She will follow some simple commands. She is able to answer questions yes and no type of questions. The patient has no respiratory distress. Hemodynamically stable. No significant right abnormalities at this point in time. This may be potentially suicidal attempt. No previous events or such events of overdose has been reported on this patient. The family confirms that she's been under a lot of stress and possibly depressed. Review of Systems ROS unobtainable: due to mental status Past Medical History Past Medical History: Thyroid Disorder Additional Past Medical History / Comment(s): Obesity, depression, chronic back pain, thyroid nodule History of Any Multi-Drug Resistant Organisms: None Reported Past Surgical History: Back Surgery, Section, Hysterectomy, Tonsillectomy Additional Past Surgical History / Comment(s): CERVICAL FUSION X2 Past Anesthesia/Blood Transfusion Reactions: No Reported Reaction Smoking Status: Current every day smoker - Past Family History Mother Family Medical History: Cancer Additional Family Medical History / Comment(s): LUNG Medications and Allergies Home Medications Medication Instructions Recorded Confirmed Type Gabapentin 600 mg PO QID 04/16/15 03/10/18 History ARIPiprazole [Abilify] 5 mg PO HS 05/09/17 05/09/17 History DULoxetine HCL [Cymbalta] 60 mg PO DAILY 05/09/17 05/09/17 History HYDROcodone/APAP 10-325MG [[place] 1 tab PO TID PRN 05/09/17 05/09/17 History 10-325] Levothyroxine Sodium [Synthroid] 100 mcg PO DAILY 05/09/17 05/09/17 History Meloxicam [Mobic] 7.5 mg PO BID PRN 05/09/17 05/09/17 History Omeprazole 20 mg PO DAILY 05/09/17 05/09/17 History Thyroid, Pork [[place] Thyroid] 30 mg PO DAILY 05/09/17 05/09/17 History rOPINIRole HCL [Requip] 0.5 mg PO HS 05/09/17 05/09/17 History Allergies Allergy/AdvReac Type Severity Reaction Status Date / Time No Known Allergies Allergy Verified 05/09/17 12:57 Physical Exam Vitals: Vital Signs Temp Pulse Pulse Resp BP BP Pulse Ox 05/10/17 15:00 107 H 21 137/72 94 L 05/10/17 14:00 108 H 26 H 159/76 98 05/10/17 13:00 109 H 22 159/76 93 L 05/10/17 12:30 122 H 23 180/80 100 05/10/17 12:00 97.1 F L 122 H 16 208/92 100 05/10/17 11:30 117 H 22 184/94 90 L 05/10/17 11:00 108 H 20 154/74 93 L 05/10/17 10:00 116 H 16 170/96 05/10/17 09:30 119 H 16 196/91 100 05/10/17 09:00 120 H 22 196/91 100 05/10/17 08:30 117 H 28 H 135/75 98 05/10/17 08:00 97.9 F 131 H 25 H 135/75 80 L 05/10/17 07:30 120 H 24 125/94 58 L 05/10/17 07:00 125 H 29 H 179/105 68 L 05/10/17 06:30 110 H 21 05/10/17 06:00 122 H 53 H 149/87 86 L 05/10/17 05:30 120 H 28 H 161/81 96 05/10/17 05:00 97.5 F L 107 H 16 161/108 99 05/10/17 04:30 108 H 45 H 91/70 92 L 05/10/17 04:00 106 H 86 16 101/84 100 05/10/17 03:30 105 H 16 172/97 98 05/10/17 03:00 111 H 46 H 146/99 89 L 05/10/17 01:30 110 H 19 138/59 100 05/10/17 01:00 111 H 26 H 92 L 05/10/17 00:30 109 H 39 H 147/68 95 05/10/17 00:01 113 H 17 137/77 96 05/10/17 00:00 123 H 86 61 H 137/77 98 05/09/17 23:30 101 H 15 155/94 98 05/09/17 23:00 99 16 152/82 99 05/09/17 22:40 97 20 130/74 100 05/09/17 20:45 86 14 146/84 100 05/09/17 20:20 90 22 149/84 97 05/09/17 20:00 14 05/09/17 19:35 97.4 F L 96 22 140/72 94 L 05/09/17 18:38 82 18 160/67 98 05/09/17 17:00 87 18 169/103 100 05/09/17 15:58 83 20 165/79 100 05/09/17 14:58 86 16 165/80 100 Intake and Output 05/10/17 05/10/17 05/10/17 06:59 14:59 22:59 Intake Total 400 50 Output Total 460 40 Balance -60 10 Intake: IV 400 50 Sodium Chloride 0.9% 1, 400 50 000 ml @ 50 mls/hr IV . Q20H [facility] Rx#:[id number] Output: Urine 460 40 Other: Voiding Method Indwelling Catheter # Bowel Movements 1 Weight - Constitutional General appearance: average body habitus, cooperative, nonacute the story distress. She would try to answer some simple commands. No agitation is been noted. - EENT EENT: PERRL, mucous membranes moist - Respiratory Respiratory: luLungs were clear to auscultation and percussion, and with normal diaphragmatic excursion. No wheezes or rales were noted. - Cardiovascular Cardiovascular: regular rate, normal S1, normal S2, Cardiac exam revealed the PMI to be normally situated and sized. The rhythm was regular and no extrasystoles were noted during several minutes of auscultation. The first and second heart sounds were normal and physiologic splitting of the second heart sound was noted. There were no murmurs, rubs, clicks, or gallops. Extremities: no peripheral edema bilaterally - GastrointestinalAbdominal exam revealed normal bowel sounds. The abdomen was soft, non-tender, and without masses, organomegaly, or appreciable enlargement of the abdominal aorta. - Integumentary Integumentary: Examination of the skin revealed no evidence of significant rashes, suspicious appearing nevi or other concerning lesions. - Neurologic Cranial nerve examination: PERRL, V1/V2/V3 grossly intact, face symmetric, tongue midline, intact gag reflex, intact corneal reflex, normal palatal elevation Speech examination: intact Sensorimotor examination: intact Motor examination - right side: 4/5: biceps, triceps, wrist flexion, wrist extension, lining mechanic, hip flexors, knee extensors, dorsiflexion, toe extension (EHL) , plantarflexion Motor examination - left side: 4/5: biceps, triceps, wrist flexion, wrist extension, lining mechanic, hip flexors, knee extensors, dorsiflexion, toe extension (EHL) , plantarflexion Detailed sensory examination: intact Reflex and gait examination: intact Reflexes: 1+: ankle, bicep, knee, tricep - Musculoskeletal Musculoskeletal: no pain - Psychiatric Psychiatric: mood/affect inappropriate as mentioned as the patient has significant lability in her mood and affect. Results - Laboratory Findings CBC and BMP: 05/10/17 03:11 05/10/17 03:11 PT/INR, D-dimer PT 9.4 sec (9.0-12.0) 05/09/17 12:38 INR 0.9 (<1.2) 05/09/17 12:38 Abnormal lab findings: Abnormal Labs 05/09/17 05/09/17 05/09/17 12:38 12:38 12:38 WBC 13.0 H Plt Count 527 H Neutrophils # 7.8 H Chloride BUN 19 H Glucose 111 H Plasma Lactic Acid Simón Phosphorus AST Urine Protein 1+ H Urine Bacteria Rare H Urine Mucus Many H U Tricyclic Antidepress Detected H 05/09/17 05/10/17 05/10/17 12:38 03:11 03:11 WBC 11.1 H Plt Count 496 H Neutrophils # 7.8 H Chloride 108 H BUN Glucose 111 H Plasma Lactic Acid Simón 2.1 H* Phosphorus 4.8 H AST 13 L Urine Protein Urine Bacteria Urine Mucus U Tricyclic Antidepress - Diagnostic Findings Chest x-ray: image reviewed Assessment and Plan Plan: Assessment 1 acute gabapentin and possible Abilify overdose 2 altered mentation secondary to above, rule out underlying delirium secondary to drugs 3 depression 4 hypothyroidism maintained on thyroid hormone replacement 5 chronic pain Plan We will need to keep a bedside sitter at all times. Monitor mental status and anticipate improvement in mentation as the patient's drug effect we'll gradually resolved. Hemodynamically stable. Awaiting an urology and a psychiatric consultation. The patient can be transferred to a medical floor with a sitter at the bedside if cleared by the other consultants. We'll continue to follow.
[2017-05-10] MEDS: SODIUM CHLORIDE 0.9% 1,000 ML IV SCH (17:23)
[2017-05-11] MEDS: HEPARIN SODIUM,PORCINE 5,000 UNIT/ML 1 ML VIAL SQ SCH ×3 (08:18→23:45)
[2017-05-11] MEDS: PANTOPRAZOLE 40 MG/10 ML VIAL IV SCH (08:27)
[2017-05-11 09:48] LABS: Basophils # (A) 0.1 k/uL (0-0.2); Basophils % (A) 1 %; Eosinophils # (A) 0.3 k/uL (0-0.7); Eosinophils % (A) 3 %; HCT 38.5 % (34.0-46.0); HGB 12.5 gm/dL (11.4-16.0); Lymphocytes # (A) 2.8 k/uL (1.0-4.8); Lymphocytes % (A) 28 %; MCH 27.8 pg (25.0-35.0); MCHC 32.4 g/dL (31.0-37.0); MCV 85.8 fL (80.0-100.0); Mean Platelet Volume 6.6; Monocytes # (A) 0.5 k/uL (0-1.0); Monocytes % (A) 5 %; Neutrophils # (A) 6.1 k/uL (1.3-7.7); Neutrophils % (A) 61 %; Platelet Count 459 k/uL (150-450); RBC 4.49 m/uL (3.80-5.40); RDW 14.6 % (11.5-15.5); WBC 9.9 k/uL (3.8-10.6)
[2017-05-11 10:08] LABS: Anion Gap 9 mmol/L; Blood Urea Nitrogen 10 mg/dL (7-17); Calcium 9.7 mg/dL (8.4-10.2); Carbon Dioxide 26 mmol/L (22-30); Chloride 106 mmol/L (98-107); Glucose 100 mg/dL (74-99); Magnesium 1.9 mg/dL (1.6-2.3); Phosphorus 4.1 mg/dL (2.5-4.5); Sodium 141 mmol/L (137-145)
[2017-05-11] MEDS: SODIUM CHLORIDE 0.9% 1,000 ML IV SCH (12:22)
[2017-05-11] MEDS ORDERED: MELOXICAM 7.5 MG TAB PO PRN (13:19)
--- NOTE | 2017-05-11 14:02 | P.CN ---
Psychiatric Consult - . Consult date: 05/11/17 Consult:: 05/11/17 13:55 Patient was seen a follow-up psychiatry consultation. Apparently she was uncooperative and was not able to provide good history yesterday when she was seen by Dr. Shirley. Currently she is laying down in her bed and is watching TV. She said she overdosed by accident and never meant to kill herself. 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 She says she has been taking Cymbalta and Abilify from her family doctor for anxiety symptoms and she is doing well on it. She also has been taking baclofen 3 times a day for more than one year for muscle spasm. She was advised about the recommended duration of baclofen treatment and she agreed to stop it. This is a polite and friendly cheerful rather overweight black female. She has well-maintained hair. She is cooperative. She does not show any psychomotor agitation or retardation. Her speech is spontaneous relevant and goal- directed. Her mood is euthymic to cheerful and affect is appropriate to thought content. She insists that she is not suicidal or homicidal. She is eager to go home, take care of her father and be with her family. She denies hallucinations and delusional thinking. She is well oriented with adequate memory concentration general fund of knowledge etc. She seems to have adequate insight with adequate treatment except for accidental overdose on pills. Assessment: Patient is not at risk for suicide or homicide at this point. Her cognitive function is adequate. She does not think she needs to be treated in mental health unit. And I agree with this. Suggestion: Patient does not need to be transferred to mental health unit. She can be discharged from the hospital when met medically stable.
--- NOTE | 2017-05-11 14:48 | P.PN ---
Subjective Progress Note Date: 05/11/17 Lakisha Kingsley is a 47-year-old female who presented to [facility] emergency room with suspected medication overdose. No history obtained from the patient. EMS report family member stated that she has had involuntary movements throughout the day today. On presentation to emergency room she was alert and oriented 1. She will follow simple commands but is not answering any questions. Patient's brother states that he believes this was a suicide attempt, she took an unknown amount of medication. He states she has been depressed over the past several days. Gabapentin and Abilify prescriptions were brought in by EMS, does appear to be significant amount of absent gabapentin. Patient was evaluated in the emergency room and admitted to intensive care unit she was alert, but not responsive to any questions, she was having frequent repetitive movements, and had occasional spikes in her blood pressure, she was receiving Ativan 0.5 mg IV every 6 hours when necessary. Critical care consultation and psychiatry consultation were requested in the emergency room. 05/11/2017 patient is currently on a regular medical floor. She was very agitated this morning and combative. She required a dose of IV Ativan. She was taken down for EEG but could not have this done due to her hair extensions. Patient is unwilling to remove the hair extensions at this time. Neurology was notified and EEG will be completed at another time. Patient was seen and evaluated by psychiatry and they have cleared her for discharge and reported that she does not require inpatient psychiatric care. Per nursing staff it was reported to me that the son is also mentioned that his mom is still not acting appropriately and has been kind of aggressive and easily agitated. We will continue with the bedside sitter. Check thyroid level. Objective - Vital Signs Vital signs: Vital Signs Temp 97.9 F 05/11/17 06:34 Pulse 102 H 05/11/17 06:34 Resp 16 05/11/17 06:34 BP 151/95 05/11/17 06:34 Pulse Ox 99 05/11/17 06:34 Intake & Output 05/10/17 05/11/17 05/11/17 18:59 06:59 18:59 Intake Total 450 Output Total 500 1175 Balance -50 -1175 Intake: IV 450 Sodium Chloride 0.9% 1, 450 000 ml @ 50 mls/hr IV . Q20H [facility] Rx#:[id number] Output: Urine 500 1175 Other: Voiding Method Indwelling Catheter Indwelling Catheter # Voids 1 # Bowel Movements 1 - Exam Head normocephalic Neck supple Lungs clear to auscultation bilaterally no wheezing or crackles Heart regular rate and rhythm S1-S2, no rub or gallop Abdomen is soft nontender nondistended positive bowel sounds no hepatosplenomegaly Extremities no edema Neuro alert and orientated to 3. Easily agitated during the conversation when asked if she could remove her hair extensions. - Labs CBC & Chem 7: 05/11/17 09:05 05/11/17 09:05 Labs: Abnormal Lab Results - Last 24 Hours (Table) 05/11/17 05/11/17 Range/Units 09:05 09:05 Plt Count 459 H (150-450) k/uL Glucose 100 H (74-99) mg/dL Microbiology - Last 24 Hours (Table) 05/09/17 20:30 Urine Culture - Final Urine,Catheterized Assessment and Plan Assessment: 1. Possible accidental overdose with gabapentin and Abilify: Has been seen by psychiatry and does not require inpatient psychiatric care. Patient's to follow -up with her psychiatrist outpatient 2. Mild leukocytosis resolved 3. History of depression 4. Chronic back pain 5. Hypothyroidism: Patient reports that she takes both the level thyroxine and [place] Thyroid at home. Check a TSH level 6. Easily agitated and having aggressive behavior required IV Ativan. While patient reevaluated by neurology GI prophylaxis Protonix and DVT prophylaxis subcu heparin
[2017-05-12] MEDS ORDERED: LEVOTHYROXINE 100 MCG TAB PO SCH (06:30)
[2017-05-12] MEDS ORDERED: PANTOPRAZOLE 40 MG TABLET PO SCH (07:30)
[2017-05-12] MEDS: HEPARIN SODIUM,PORCINE 5,000 UNIT/ML 1 ML VIAL SQ SCH ×2 (08:02→15:44)
[2017-05-12] MEDS: SODIUM CHLORIDE 0.9% 1,000 ML IV SCH (08:04)
[2017-05-12] MEDS ORDERED: DULoxetine HCL 60 MG CAPSULE.DR PO SCH (09:00)
[2017-05-12] MEDS ORDERED: THYROID, PORK 30 MG TAB PO SCH (09:00)
[2017-05-12 09:06] LABS: Anion Gap 9 mmol/L; Blood Urea Nitrogen 8 mg/dL (7-17); Calcium 9.6 mg/dL (8.4-10.2); Carbon Dioxide 27 mmol/L (22-30); Chloride 104 mmol/L (98-107); Glucose 94 mg/dL (74-99); Magnesium 1.9 mg/dL (1.6-2.3); Phosphorus 4.7 mg/dL (2.5-4.5); Potassium 4.3 mmol/L (3.5-5.1); Sodium 140 mmol/L (137-145)
[2017-05-12 09:23] LABS: Basophils # (A) 0.1 k/uL (0-0.2); Basophils % (A) 1 %; Eosinophils # (A) 0.3 k/uL (0-0.7); Eosinophils % (A) 4 %; HCT 39.9 % (34.0-46.0); HGB 12.8 gm/dL (11.4-16.0); Lymphocytes # (A) 2.7 k/uL (1.0-4.8); Lymphocytes % (A) 31 %; MCH 27.7 pg (25.0-35.0); MCHC 32.1 g/dL (31.0-37.0); MCV 86.3 fL (80.0-100.0); Mean Platelet Volume 6.6; Monocytes # (A) 0.5 k/uL (0-1.0); Monocytes % (A) 6 %; Neutrophils % (A) 57 %; Platelet Count 441 k/uL (150-450); RBC 4.63 m/uL (3.80-5.40); RDW 14.6 % (11.5-15.5); WBC 8.8 k/uL (3.8-10.6)
[2017-05-12] MEDS ORDERED: amLODIPine 5 MG TAB PO SCH (12:00)
--- NOTE | 2017-05-12 13:55 | P.DS ---
Providers Date of admission: 05/09/17 16:07 Expected date of discharge: 05/12/17 Attending physician: Govind Arora Consults: 05/09/17 16:07 Consult Physician Urgent Consulting Provider: Angelina Anne Consult Reason/Comments: Gabapentin overdose, suicide attempt Do you want consulting provider notified?: Already Contacted 05/09/17 16:19 Consult Physician Urgent Consulting Provider: Erica Recinos Consult Reason/Comments: Gabapentin overdose Do you want consulting provider notified?: Already Contacted 05/10/17 11:32 Consult Physician Routine Consulting Provider: Mame Pulido Consult Reason/Comments: gabapentin overdose Do you want consulting provider notified?: Yes Primary care physician: Mendy [facility] Course: Discharge diagnosis 1. Possible accidental overdose with gabapentin and Abilify: Has been seen by psychiatry and does not require inpatient psychiatric care. Patient's to follow -up with her psychiatrist outpatient 2. Mild leukocytosis resolved 3. History of depression 4. Chronic back pain 5. Hypothyroidism: Patient reports that she takes both the level thyroxine and Dix Thyroid at home. TSH level normal at 1.330 6. Toxic encephalopathy secondary to overdose with gabapentin and Abilify 7. Essential hypertension: Blood pressures elevated during this admission. Less blood pressure 174/87. Norvasc 5 mg daily has been added Hospital course Lakisha Kingsley is a 47-year-old female who presented to [facility] emergency room with suspected medication overdose. No history obtained from the patient. EMS report family member stated that she has had involuntary movements throughout the day today. On presentation to emergency room she was alert and oriented 1. She will follow simple commands but is not answering any questions. Patient's brother states that he believes this was a suicide attempt, she took an unknown amount of medication. He states she has been depressed over the past several days. Gabapentin and Abilify prescriptions were brought in by EMS, does appear to be significant amount of absent gabapentin. Patient was evaluated in the emergency room and admitted to intensive care unit she was alert, but not responsive to any questions, she was having frequent repetitive movements, and had occasional spikes in her blood pressure, she was receiving Ativan 0.5 mg IV every 6 hours when necessary. Critical care consultation and psychiatry consultation were requested in the emergency room. Patient was seen by critical care physician the ICU as well as neurologist and psychiatrist during this admission. Computed tomography scan of the brain showing no acute intracranial hemorrhage or mass effect or midline shift. Patient unable to complete EEG due to her hair extensions. And EEG can be completed outpatient if needed. Patient is now awake and alert and orientated to 3. She had some agitation and aggression behavior yesterday this is now resolved. She was seen by psychiatry and they have cleared her for discharge home. Psychiatry deemed patient medically stable for discharge home and that she did not need to be transferred to the mental health unit. Patient states that the overdose was an accident. She never meant to kill herself or harm herself. And that she has no thoughts of wanting to hurt anybody else. Patient has been cleared by consulting physicians for discharge. Patient is medically stable for discharge home. Patient can resume her home medications. Also during this admission patient has been having elevated blood pressures. Norvasc 5 mg daily was added any new prescription has been given. We'll have patient follow-up with her PCP, Dr. Augustine in 3 days. And have her follow-up with her psychiatrist within 1 week I performed an examination of the patient and discussed their management with the physician Solutions Development Analyst. I have reviewed the Physician Solutions Development Analyst's notes and agree with the documented findings and plan of care Patient Condition at Discharge: Stable Plan - Discharge Summary Discharge Rx Participant: No New Discharge Prescriptions: New amLODIPine [Norvasc] 5 mg PO DAILY #30 tab Continue Gabapentin 600 mg PO QID Levothyroxine Sodium [Synthroid] 100 mcg PO DAILY HYDROcodone/APAP 10-325MG [[place] 10-325] 1 tab PO TID PRN PRN Reason: Pain Thyroid, Pork [Dix Thyroid] 30 mg PO DAILY Omeprazole 20 mg PO DAILY Meloxicam [Mobic] 7.5 mg PO BID PRN PRN Reason: Pain DULoxetine HCL [Cymbalta] 60 mg PO DAILY ARIPiprazole [Abilify] 5 mg PO HS rOPINIRole HCL [Requip] 0.5 mg PO HS Discharge Medication List Gabapentin 600 mg PO QID 06/15/14 [History] ARIPiprazole [Abilify] 5 mg PO HS 05/09/17 [History] DULoxetine HCL [Cymbalta] 60 mg PO DAILY 05/09/17 [History] HYDROcodone/APAP 10-325MG [[place] 10-325] 1 tab PO TID PRN 05/09/17 [History] Levothyroxine Sodium [Synthroid] 100 mcg PO DAILY 05/09/17 [History] Meloxicam [Mobic] 7.5 mg PO BID PRN 05/09/17 [History] Omeprazole 20 mg PO DAILY 05/09/17 [History] Thyroid, Pork [Dix Thyroid] 30 mg PO DAILY 05/09/17 [History] rOPINIRole HCL [Requip] 0.5 mg PO HS 05/09/17 [History] amLODIPine [Norvasc] 5 mg PO DAILY #30 tab 05/12/17 [Rx] Follow up Appointment(s)/Referral(s): Mendy Augustine DO [Primary Care Provider] - 3 Days Patient Instructions/Handouts: How to Stop Smoking (DC) Activity/Diet/Wound Care/Special Instructions: Follow up with patient's psychiatrist in 1 week Diet: cardiac Activity: as tolerated Discharge Disposition: HOME SELF-CARE
[2017-05-12 15:32] VITALS: BP 196/85; PULSE 120; RESP 20; TEMP 98.9
== END 2017-05-12 15:52 | disposition home or self-care (01) | DRG 917 ==
LOC: EC 12:22 → 6SEL 16:07 → 6ICU 18:56 → 4MS4W 05-10 18:37
PROVIDERS: ADMIT Internal Medicine; ATTEND Internal Medicine
DX: T42.6X1A Poisoning by other antiepileptic and sedative-hypnotic drugs, accidental (unintentional), initial encounter (principal); G92 Toxic encephalopathy; F32.9 Major depressive disorder, single episode, unspecified; I10 Essential (primary) hypertension; T43.591A Poisoning by other antipsychotics and neuroleptics, accidental (unintentional), initial encounter; E03.9 Hypothyroidism, unspecified; K21.9 Gastro-esophageal reflux disease without esophagitis; G25.81 Restless legs syndrome; E04.1 Nontoxic single thyroid nodule; D72.829 Elevated white blood cell count, unspecified; G89.29 Other chronic pain; M54.9 Dorsalgia, unspecified; E66.9 Obesity, unspecified; Z68.31 Body mass index [BMI] 31.0-31.9, adult; F17.200 Nicotine dependence, unspecified, uncomplicated; Z79.899 Other long term (current) drug therapy; Z90.710 Acquired absence of both cervix and uterus; Z98.1 Arthrodesis status; Y92.009 Unspecified place in unspecified non-institutional (private) residence as the place of occurrence of the external cause
CPT/HCPCS: 36415; 70450; 71045; 80048; 80053; 80306; 80320; 81001; 82140; 82550; 82553; 83520; 83605; 83735; 84100; 84443; 84484; 85025; 85610; 85730; 87086; 93005; 96361; 96374; 96375; 96376; 99291

== ENCOUNTER → 2017-09-11 | Outpatient (CLI) | payer MEDICARE ==
--- NOTE | 2017-09-11 20:41 | MR ---
MRI CERVICAL SPINE: CLINICAL HISTORY: Cervicalgia per order. Headaches for 20 years with neck pain causing bilateral arm numbness, history of prior surgery. TECHNIQUE: Multiplanar, multisequence imaging of the cervical spine is performed without and with IV contrast, 9 cc of gadolinium was given intravenously. COMPARISON: Prior MRI cervical spine September 21, 2013. FINDINGS: Sagittal images of the cervical spine show the craniocervical junction to remain within nor mal limits. The cervical and upper thoracic spinal cord is normal in course, caliber, and signal. V ertebral alignment is stable and straightened. There is artifact from anterior fusion plate C5-C7 le ash with ossific fusion of C5 and C6 vertebra. The vertebral body and intravertebral disk heights are normal above and below surgical levels. The bone marrow signal intensity is within normal limits. N o suspicious enhancement is present. Axial images show the C2-C3 level to appear within normal limits. Axial images at C3-C4 level a left-sided uncovertebral facet degenerative changes causing asymmetric mild left-sided neural foraminal narrowing. Right-sided neural foramen is patent. No significant domingo ge from prior. Axial images at C4-C5 level shows central disc protrusion mildly effacing anterior thecal sac, bilate ral neural foramina are patent. No significant change from prior. Axial images at C5-C6 level show artifact from anterior fusion plate, spinal canal is preserved there is mild to moderate bilateral neural foraminal narrowing axial image 22 redemonstrated not significa ntly changed from prior. Axial images at C6-C7 levels show more prominent artifact from anterior fusion hardware with appearan ce of fairly moderate bilateral neural foraminal narrowing or axial image 17. Spinal canal is grossly preserved. Axial images at C7-T1 level are felt within normal limits on axial image 9. No suspicious incidental finding seen. IMPRESSION: Postsurgical change C5-C7 level with stable and straightened alignment. Degenerative domingo ge C4-C5 level redemonstrated. No significant change from prior MRI. Further details as noted above.
== END | disposition home or self-care (01) ==
LOC: RADMRIMAIN 14:50
PROVIDERS: ATTEND Psychiatry & Neurology Neurology
DX: M47.812 Spondylosis without myelopathy or radiculopathy, cervical region (principal); Z98.1 Arthrodesis status
CPT/HCPCS: 82565; 72156; 36415; A9581

== ENCOUNTER 2020-08-19 13:29 | Emergency (ER) | payer MEDICARE, BC ==
[2020-08-19 13:32] VITALS: RESP 16
[2020-08-19] MEDS ORDERED: MORPHINE SULFATE 4 MG/ML SYRINGE IM STA (14:10)
[2020-08-19] MEDS ORDERED: methylPREDNISolone SOD SUCCI 125 MG/2 ML VIAL IM ONE (14:11)
--- NOTE | 2020-08-19 14:59 | ED ---
General Adult HPI - General Chief complaint: Back Pain/Injury Stated complaint: nack pain Time Seen by Provider: 08/19/20 13:52 Source: patient, RN notes reviewed Mode of arrival: ambulatory Limitations: no limitations - History of Present Illness Initial comments: Patient is a 50-year-old female that presents to emergency department complaining of right-sided neck and upper back muscle tension and pain. 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 She notes that she tried taking muscle relaxers and her gabapentin at home with no relief. She notes that she can emergency room to get symptomatic relief. She notes that she does have a ride home. She notes that she still has full range of motion and strength and function of her right upper extremity is just painful due to her upper back pain. She denied any other complaints or issues at this time. She denied any headache nausea vomiting diarrhea constipation fever fatigue chills chest pain shortness of breath decreased range of motion and strength sensation in her right upper extremity. - Related Data Home Medications Medication Instructions Recorded Confirmed Gabapentin 600 mg PO TID 06/15/14 08/19/20 DULoxetine HCL [Cymbalta] 60 mg PO DAILY 05/09/17 08/19/20 Eszopiclone [Lunesta] 2 mg PO HS PRN 08/19/20 08/19/20 Ibuprofen [Motrin] 800 mg PO Q8H PRN 08/19/20 08/19/20 Orphenadrine Citrate [Orphenadrine 100 mg PO BID 08/19/20 08/19/20 Citrate ER] Allergies Allergy/AdvReac Type Severity Reaction Status Date / Time Fish Containing Products Allergy Unknown Verified 08/19/20 14:30 Review of Systems ROS Statement: Those systems with pertinent positive or pertinent negative responses have been documented in the HPI. ROS Other: All systems not noted in ROS Statement are negative. Past Medical History Past Medical History: Thyroid Disorder Additional Past Medical History / Comment(s): Obesity, depression, chronic back pain, thyroid nodule History of Any Multi-Drug Resistant Organisms: None Reported Past Surgical History: Back Surgery, Section, Hysterectomy, Tonsillectomy Additional Past Surgical History / Comment(s): CERVICAL FUSION X2 Past Anesthesia/Blood Transfusion Reactions: No Reported Reaction Past Psychological History: Depression Smoking Status: Current every day smoker Past Alcohol Use History: Unable to Obtain Past Drug Use History: Unable to Obtain - Past Family History Mother Family Medical History: Cancer Additional Family Medical History / Comment(s): LUNG General Exam Limitations: no limitations General appearance: alert, in no apparent distress Head exam: Present: atraumatic, normocephalic, normal inspection Eye exam: Present: normal appearance, PERRL, EOMI. Absent: scleral icterus, conjunctival injection, periorbital swelling Neck exam: Present: normal inspection, tenderness (Along the right paraspinal muscles), full ROM. Absent: meningismus, lymphadenopathy Respiratory exam: Present: normal lung sounds bilaterally. Absent: respiratory distress, wheezes, rales, rhonchi, stridor Cardiovascular Exam: Present: regular rate, normal rhythm, normal heart sounds. Absent: systolic murmur, diastolic murmur, rubs, gallop, clicks Extremities exam: Present: normal inspection, full ROM, normal capillary refill. Absent: tenderness, pedal edema, joint swelling, calf tenderness Back exam: Present: normal inspection, tenderness (Upper right trapezius muscle, large knot palpated.) Neurological exam: Present: alert, oriented X3 Psychiatric exam: Present: normal affect, normal mood Skin exam: Present: warm, dry, intact, normal color. Absent: rash Course Vital Signs 08/19/20 13:30 Temperature 98.4 F Pulse Rate 94 Respiratory 16 Rate Blood Pressure 183/67 O2 Sat by Pulse 99 Oximetry Medical Decision Making - Medical Decision Making 30-year-old female complaining of upper back and right sided neck pain. Patient notes that she just wants symptomatic control this time as she does have a chronic history of cervical pain with a herniated disc. She declined x-rays at this time. 4 mg of morphine, 125 mg of Solu-Medrol ordered. Case discussed with Dr. Malave, patient discharge home. Disposition Clinical Impression: Cervical radiculopathy, Muscle pain, cervical Disposition: HOME SELF-CARE Condition: Stable Instructions (If sedation given, give patient instructions): Cervical Radiculopathy (ED) Additional Instructions: Please return to the Emergency Department if symptoms worsen or any other concerns. Follow-up primary care and pain medicine specialist. Avoid any strenuous activity or lifting. Take Tylenol Motrin as needed for pain control. Is patient prescribed a controlled substance at d/c from ED?: No Referrals: Jazzmine Avelar MD [Primary Care Provider] - 1-2 days Time of Disposition: 15:42
[2020-08-19 15:56] VITALS: BP 156/70; PULSE 83; TEMP 98
== END 2020-08-19 15:55 | disposition home or self-care (01) ==
LOC: EC 13:29
DX: M54.12 Radiculopathy, cervical region (principal); M54.6 Pain in thoracic spine; E66.9 Obesity, unspecified; F32.9 Major depressive disorder, single episode, unspecified; F17.200 Nicotine dependence, unspecified, uncomplicated; Z79.1 Long term (current) use of non-steroidal anti-inflammatories (NSAID); Z79.899 Other long term (current) drug therapy; Z68.34 Body mass index [BMI] 34.0-34.9, adult
CPT/HCPCS: 99283; 96372 ×2; J2270; J2930

== ENCOUNTER 2020-09-12 17:14 | Emergency (ER) | payer BC, MEDICARE ==
[2020-09-12 17:18] VITALS: RESP 18
[2020-09-12] MEDS ORDERED: PROCHLORPERAZINE INJ 10 MG/2 ML VIAL IVP STA (17:51)
[2020-09-12] MEDS ORDERED: diphenhydrAMINE 50 MG/ML 1 ML VIAL IVP STA (17:51)
[2020-09-12] MEDS ORDERED: KETOROLAC 15 MG/ML 1 ML VIAL IVP STA (17:51)
[2020-09-12] MEDS ORDERED: ACETAMINOPHEN TAB 500 MG TAB PO STA (17:51)
[2020-09-12] MEDS ORDERED: SODIUM CHLORIDE 0.9% 1,000 ML IV ONE (17:51)
--- NOTE | 2020-09-12 20:22 | CT ---
EXAMINATION TYPE: CT cervical spine wo con DATE OF EXAM: 09/12/2020 COMPARISON: No prior CT cervical spine system for comparison. Limited comparison made to a cervical s pine MR dated 09/11/2017. HISTORY: Pain and neurological deficits TECHNIQUE: CT scan of the cervical spine without contrast CT DLP: 464.7 mGycm Automated exposure control for dose reduction was used. FINDINGS: The skull base and craniocervical junction are maintained. There is straightening of the cervical curvature. Vertebral body heights are normal. Posterior elements are acutely intact. C5-6 fusion is noted. Anterior fixation plate and bilateral screw complex is noted. No prior CTs cerv ical spine present to compare hardware alignment. Partial fusion of C6-7 noted on the right. Mild to moderate multilevel bilateral neural foraminal narrowing is noted appears to be most prominen t at C6-7. No bony spinal canal stenosis. Mild facet joint uncovertebral arthropathy extends from C5 to C7. Ventral bony spur seen at C3. No significant soft tissue swelling seen. The prevertebral soft tissues are normal in thickness. The parapharyngeal fat is maintained. The included airways are symmetric and patent. The thyroid gland is heterogeneous and enlarged. Included lung apices are unremarkable. The included esophagus is mildly dilated and has a thick wall. IMPRESSION: 1. NO ACUTE OSSEOUS ABNORMALITY. 2. NONACUTE FINDINGS DESCRIBED ABOVE, SEE BODY OF REPORT. COMPARISON TO PRIOR IS DIFFICULT DUE TO DIFFERENCE IN MODALITY.
--- NOTE | 2020-09-12 20:51 | ED ---
General Adult HPI - General Chief complaint: Neck Pain/Injury Stated complaint: neck pain Time Seen by Provider: 09/12/20 17:28 Source: patient Mode of arrival: ambulatory Limitations: no limitations - History of Present Illness Initial comments: Patient is a 50-year-old female with past medical history remarkable for cervical spine surgery, thyroid disorder, depression, chronic back pain presents to the emergency department complaining of her chronic neck pain that has been progressively worsening over the last month. Patient also has a tension like headache which is a belt-like distribution around her head that she rates as a 6 on a 10 that has been present for one week, more or less constantly. States no medications up with her. She denies any nausea or vomiting. She does endorse some numbness and weakness of the right upper extremity which she has pains previously she does have a known history of a slipped cervical disc. She states it is somewhat worse over the last few weeks as well. She denies any recent trauma. She has been attempting to follow up with her neurologist but is waiting for an appointment. She denies any other acute complaints at this time including blurry vision, lightheadedness, weakness or numbness, other back pain. She has no chest pain or shortness of breath or abdominal pain. She denies any nausea or vomiting. She has no history of IV drug use. She denies any fevers or chills. Patient presents for acute on chronic neck pain with weakness and numbness of the right upper extremity. Her doctor told her to come to the emergency department for pain control. - Related Data Home Medications Medication Instructions Recorded Confirmed Gabapentin 600 mg PO TID 06/15/14 08/19/20 DULoxetine HCL [Cymbalta] 60 mg PO DAILY 05/09/17 08/19/20 Eszopiclone [Lunesta] 2 mg PO HS PRN 08/19/20 08/19/20 Ibuprofen [Motrin] 800 mg PO Q8H PRN 08/19/20 08/19/20 Orphenadrine Citrate [Orphenadrine 100 mg PO BID 08/19/20 08/19/20 Citrate ER] Previous Rx's Medication Instructions Recorded Ibuprofen [Motrin] 800 mg PO Q8H #21 tab 09/12/20 Lidocaine 5% Patch [Lidoderm 5% 1 patch TOPICAL DAILY #7 patch 09/12/20 Patch] methocarbamoL [Robaxin] 1,500 mg PO QID PRN #42 tab 09/12/20 Allergies Allergy/AdvReac Type Severity Reaction Status Date / Time Fish Containing Products Allergy Unknown Verified 09/12/20 17:18 Review of Systems ROS Statement: Those systems with pertinent positive or pertinent negative responses have been documented in the HPI. Review of Systems: CONST: Denies fever EYES: Denies blurry vision ENT: Denies nasal congestion C/V: Denies Chest pain RESP: Denies shortness of breath GI: Denies abdominal pain : Denies dysuria SKIN: Denies rash. MSK: Endorses neck pain NEURO: Endorses right arm weakness and numbness ROS Other: All systems not noted in ROS Statement are negative. Past Medical History Past Medical History: Thyroid Disorder Additional Past Medical History / Comment(s): depression, chronic back pain, thyroid nodule History of Any Multi-Drug Resistant Organisms: None Reported Past Surgical History: Back Surgery, Section, Hysterectomy, Tonsillectomy Additional Past Surgical History / Comment(s): CERVICAL FUSION X2 Past Anesthesia/Blood Transfusion Reactions: No Reported Reaction Past Psychological History: Depression Smoking Status: Current every day smoker Past Alcohol Use History: None Reported Past Drug Use History: Marijuana - Past Family History Mother Family Medical History: Cancer Additional Family Medical History / Comment(s): LUNG General Exam - General Exam Comments Initial Comments: General: Appears in Mild distress secondary to headache and neck pain. HEAD: Normal with no signs of head trauma. EYES: PERRLA, EOMI, conjunctiva normal, no discharge. Pupils are 3 mm bilaterally and equally reactive to light. ENT: Hearing grossly intact, normal oropharynx. RESPIRATORY: Clear breath sounds bilaterally. No wheezes, rales, or rhonchi. C/V: She is tachycardic mildly with a regular rhythm. Peripheral pulses are intact throughout. S1 and S2 are auscultated. ABD: Abd is soft, nontender, nondistended EXT: It is normal range of motion of all extremities as well as her neck. She does have some tenderness to palpation midline of the cervical spine. She also sinus palpation over the paraspinal muscles of the cervical spine into her shoulder trapezius muscle. She has no midline thoracic or lumbar spine tenderness to palpation. SKIN: No rashes or lesions observed on exposed skin. NEURO: Alert and oriented 4. Cranial nerves II-12 are intact. Patient does have mild subjective sensory deficits the right upper extremity as well as very mild 4-5 strength deficit of the right upper extremity. Remainder of the neurological exam is normal, as patient is able to ambulate without difficulty, has intact cerebellar function. Limitations: no limitations Course Vital Signs 09/12/20 09/12/20 09/12/20 17:15 19:30 21:00 Temperature 98.1 F 97.8 F Pulse Rate 115 H 91 90 Respiratory 18 18 18 Rate Blood Pressure 188/87 158/84 145/82 O2 Sat by Pulse 98 99 98 Oximetry Medical Decision Making - Medical Decision Making Based on patient's presentation and physical exam, I'm concerned for possible trauma to the patient's neck, particularly with the recently worsening neurological symptoms. It could just be an exacerbation of her symptoms. However we will obtain a CT of the cervical spine. I did discuss with the patient IV medications, and she will be given an migraine cocktail consisting of IV Benadryl, Compazine, Toradol, by mouth acetaminophen, as well as 1 L fluid bolus. She was in agreement this plan. Patient's imaging shows no acute change. There is no acute injury. On reevaluation, patient's headache is improved. Her tachycardia is improved. She is requesting to go home. I did recommend that she follow up with her neurologist for possible outpatient MRI due to her worsening compression and radicular symptoms. She was in agreement with this plan. I will provide the patient with a prescription for Robaxin, lidocaine patches, ibuprofen. I instructed the patient to follow up with their PCP in the next 3 days. . I explained that the patient should return to the emergency department if they experience any worsening symptoms. Strict return precautions were discussed with the patient. The patient expressed understanding of these instructions. I answered all questions that the patient had. The patient was discharged home in improved condition with their prescriptions and follow up information. - Lab Data Lab Results 09/12/20 Range/Units 18:12 HCG, Qual Not Detected Disposition Clinical Impression: Chronic neck pain, Headache, Arm paresthesia, right Disposition: HOME SELF-CARE Condition: Good Instructions (If sedation given, give patient instructions): Neck Pain (ED) Prescriptions: Lidocaine 5% Patch [Lidoderm 5% Patch] 1 patch TOPICAL DAILY #7 patch Ibuprofen [Motrin] 800 mg PO Q8H #21 tab methocarbamoL [Robaxin] 1,500 mg PO QID PRN #42 tab PRN Reason: Muscle Pain Is patient prescribed a controlled substance at d/c from ED?: No Referrals: Jazzmine Avelar MD [Primary Care Provider] - 1-2 days
[2020-09-12 21:01] VITALS: BP 145/82; PULSE 90; TEMP 97.8
== END 2020-09-12 21:01 | disposition home or self-care (01) ==
LOC: EC 17:14
DX: G89.29 Other chronic pain (principal); M54.2 Cervicalgia; R51.9 Headache, unspecified; R20.2 Paresthesia of skin; R53.1 Weakness; F32.9 Major depressive disorder, single episode, unspecified; F12.90 Cannabis use, unspecified, uncomplicated; F17.200 Nicotine dependence, unspecified, uncomplicated; Z79.1 Long term (current) use of non-steroidal anti-inflammatories (NSAID)
CPT/HCPCS: 36415; 84703; 72125; 99285; 96374; 96375 ×2; 96361; J1200; J0780; J1885

== ENCOUNTER 2020-10-01 15:41 | Emergency (ER) | payer BC, MEDICARE ==
--- NOTE | 2020-10-01 17:38 | ED ---
Skin/Abscess/FB HPI - General Chief complaint: Skin/Abscess/Foreign Body Stated complaint: rash Time Seen by Provider: 10/01/20 16:56 Source: patient Mode of arrival: ambulatory Limitations: no limitations - History of Present Illness Initial comments: Patient is a 50-year-old female presenting to the emergency Department with complaints of a rash on her belly that started a few days ago. She does have history of shingles in the same area last year. She states she struggled with an ongoing skin infection, did see a specimen technician for this and things have have been improving over the past few months. She states a few days ago she noticed a rash started on her belly just under her belly button. She states it was slightly itchy and then noticed a few little blisters develop. She states it got a little worse today since she came in for evaluation. She states it does not feel like shingles. She's had no fevers or chills. She did recently start a new medication for migraines that she is taken as 3 or 4 times over the past couple weeks, she thinks it's Fioricet. She denies any fevers or chills, no chest pain or shortness of breath, no abdominal pain other then superficial rash. She was concerned as she is having history of staph infection in the past. She has no further complaints. - Related Data Home Medications Medication Instructions Recorded Confirmed Gabapentin 600 mg PO TID 06/15/14 08/19/20 DULoxetine HCL [Cymbalta] 60 mg PO DAILY 05/09/17 08/19/20 Eszopiclone [Lunesta] 2 mg PO HS PRN 08/19/20 08/19/20 Ibuprofen [Motrin] 800 mg PO Q8H PRN 08/19/20 08/19/20 Orphenadrine Citrate [Orphenadrine 100 mg PO BID 08/19/20 08/19/20 Citrate ER] Previous Rx's Medication Instructions Recorded Ibuprofen [Motrin] 800 mg PO Q8H #21 tab 09/12/20 Lidocaine 5% Patch [Lidoderm 5% 1 patch TOPICAL DAILY #7 patch 09/12/20 Patch] methocarbamoL [Robaxin] 1,500 mg PO QID PRN #42 tab 09/12/20 Cephalexin [Keflex] 500 mg PO Q6HR 5 Days #20 cap 10/01/20 Sulfamethox-Tmp 800-160Mg [Bactrim 1 each PO Q12HR 5 Days #10 tab 10/01/20 Ds] Allergies Allergy/AdvReac Type Severity Reaction Status Date / Time Fish Containing Products Allergy Unknown Verified 10/01/20 16:03 Review of Systems ROS Statement: Those systems with pertinent positive or pertinent negative responses have been documented in the HPI. ROS Other: All systems not noted in ROS Statement are negative. Past Medical History Past Medical History: Thyroid Disorder Additional Past Medical History / Comment(s): depression, chronic back pain, thyroid nodule History of Any Multi-Drug Resistant Organisms: None Reported Past Surgical History: Back Surgery, Section, Hysterectomy, Tonsillectomy Additional Past Surgical History / Comment(s): CERVICAL FUSION X2 Past Anesthesia/Blood Transfusion Reactions: No Reported Reaction Past Psychological History: Depression Smoking Status: Current every day smoker Past Alcohol Use History: None Reported Past Drug Use History: Marijuana - Past Family History Mother Family Medical History: Cancer Additional Family Medical History / Comment(s): LUNG General Exam - General Exam Comments Initial Comments: GENERAL: Patient is well-developed and well-nourished. Patient is nontoxic and in no acute distress. HEAD: Atraumatic, normocephalic. EYES: Pupils equal round and reactive to light, extraocular movements intact, sclera anicteric, conjunctiva are normal. Eyelids were unremarkable. ENT: Moist mucous membranes. NECK: Normal range of motion, supple without lymphadenopathy or JVD. LUNGS: Unlabored respirations. Breath sounds clear to auscultation bilaterally and equal. No wheezes rales or rhonchi. HEART: Regular rate and rhythm without murmurs, rubs or gallops. ABDOMEN: Soft, nontender, normoactive bowel sounds. No guarding, no rebound. No masses appreciated. : Deferred MUSCULOSKELETAL: Normal extremities with adequate strength and normal range of motion, no pitting or edema. No clubbing or cyanosis. NEUROLOGICAL: Patient is alert and oriented x 3. SKIN: Warm, Dry, normal turgor. Patient has erythematous rash on her abdomen, there is surrounding erythema, a few tiny blisters. Some of the blisters have popped, starting to heal. Limitations: no limitations Course Vital Signs 10/01/20 16:03 Temperature 98.7 F Pulse Rate 91 Respiratory 16 Rate Blood Pressure 165/91 O2 Sat by Pulse 95 Oximetry Medical Decision Making - Medical Decision Making Patient is a 50-year-old female here with a rash in her abdomen over the past few days. Her vitals stable, afebrile. She denies any new soaps or lotions or detergents. Her rash is erythematous, few blisters that have popped. I am concerned for possible cellulitis. I will start her on Keflex and Bactrim. I recommended close follow-up with her family doctor. She is agreeable to this. She is stable for discharge. Return parameters were discussed with her and she verbalized understanding. Disposition Clinical Impression: Cellulitis of abdominal wall Disposition: HOME SELF-CARE Condition: Stable Instructions (If sedation given, give patient instructions): Cellulitis (ED) Additional Instructions: Please return to the Emergency Department if symptoms worsen or any other concerns. Please take both antibiotics as prescribed. Follow-up with your family doctor or specimen technician. Prescriptions: Sulfamethox-Tmp 800-160Mg [Bactrim Ds] 1 each PO Q12HR 5 Days #10 tab Cephalexin [Keflex] 500 mg PO Q6HR 5 Days #20 cap Is patient prescribed a controlled substance at d/c from ED?: No Referrals: Jazzmine Avelar MD [Primary Care Provider] - 1-2 days Time of Disposition: 17:38
[2020-10-01 17:58] VITALS: BP 183/89; PULSE 78; RESP 18; TEMP 97.7
== END 2020-10-01 17:52 | disposition home or self-care (01) ==
LOC: EC 15:41
DX: L03.311 Cellulitis of abdominal wall (principal); F17.200 Nicotine dependence, unspecified, uncomplicated; Z91.013 Allergy to seafood
CPT/HCPCS: 99282

== ENCOUNTER → 2020-12-13 | Outpatient (CLI) | payer MEDICARE ==
--- NOTE | 2020-12-13 16:24 | MR ---
EXAMINATION TYPE: MR brain wo/w con DATE OF EXAM: 12/13/2020 COMPARISON: CT brain 05/09/2017 HISTORY: Migraine with aura, intractable, with status migrainosus. History of fall on back of head 20 19. TECHNIQUE: Multiplanar, multisequence images of the brain and brainstem is performed without and with IV contras t, utilizing 7.5 mL intravenous Gadavist . FINDINGS: Diffusion weighted images demonstrate no evidence of a recent infarct or other diffusion ab normality. There is no extra-axial fluid collection. There are scattered hyperintensities in the per iventricular, pericallosal white matter, approximately 5-10 lesions are present, the largest is prese nt on axial image #18 in the right frontal white matter measuring 5 mm. The ventricular system and ci sternal spaces are normal in size and appearance. The brain volume is age appropriate. Midline structures demonstrate normal morphology. The craniocervical junction appears within normal limits. Post contrast images demonstrate no abnormal enhancement. The dural venous sinuses appear pa tent. The visualized sinuses are markable for mucosal disease in the frontal sinus, ethmoid air cells , maxillary sinus and the globes are intact. IMPRESSION: Nonspecific white matter demyelination could be indicative of underlying migraine headach es, hypertension, vasculitis, chronic small vessel ischemic changes, Lyme disease, multiple sclerosis is not excluded. There is sinus disease.
== END | disposition home or self-care (01) ==
LOC: RADMRIMAIN 15:17
PROVIDERS: ATTEND Family Medicine
DX: G37.8 Other specified demyelinating diseases of central nervous system (principal)
CPT/HCPCS: 70553; A9585

== ENCOUNTER → 2022-02-14 | Day surgery (SDC) | payer MEDICARE ==
[2022-02-11 16:06] VITALS: BMI 33.0
[~2022-02-14] MED LIST: ACETAMINOPHEN TAB 325 MG TAB PO SCH; ACETAMINOPHEN TAB 500 MG TAB PO PRN; BUPIVACAIN-EPI 0.25%-1:200,000 30 ML VIAL SQ ONE; DEXAMETHASONE SOD PHOSPHATE 4 MG/ML 1 ML VIAL IV ONE; GLYCOPYRROLATE 0.2 MG/ML 2 ML VIAL ONE; HEPARIN SODIUM,PORCINE/PF 5,000 UNIT/0.5 ML SYRINGE SQ PRN; HYDROcodone/APAP 5-325MG 1 EACH TAB PO ONE; HYDROcodone/APAP 5-325MG 1 EACH TAB PO STA; HYDROmorphone (PF) 1 MG/ML ONE; IBUPROFEN 600 MG TAB PO SCH; KETOROLAC 15 MG/ML 1 ML VIAL ONE; LABETALOL 5 MG/ML VIAL MDV ONE; LACTATED RINGERS 1,000 ML IV ONE; LACTATED RINGERS 1,000 ML IV SCH; LIDOCAINE 1% (10MG/ML) FOR IV START INTRADERMA ONE; LIDOCAINE 2% INJ 20 MG/ML (2 ML VIAL) ONE; MIDAZOLAM 2 MG/2 ML VIAL IV PRN; MIDAZOLAM 2 MG/2 ML VIAL ONE; NEOSTIGMINE 1 MG/ML 10 ML VIAL ONE; ONDANSETRON 4 MG/2 ML VIAL IVP ONE; PROPOFOL 10 MG/ML 20 ML VIAL IV ONE; ROCURONIUM 10 MG/ML (5 ML VIAL) IV ONE; SCOPOLAMINE 1 MG/72 HR PATCH TRANSDERM ONE; SUCCINYLCHOLINE CHLORIDE 200 MG/10 ML VIAL IV ONE; fentaNYL (PF) 50 MCG/ML 2 ML AMP ONE
--- NOTE | 2022-02-14 07:38 | P.GSHP ---
History of Present Illness H&P Date: 02/14/22 Chief Complaint: Chronic cholecystitis 51-year-old female here today for elective cholecystectomy. Patient has had ongoing complaints of right upper quadrant pain. An aggravated by greasy foods. CAT scan showed mild gastric wall thickening and a 5 mm antral ulceration was seen by GI on recent EGD. Patient has not responded to antiacid therapy. Patient had a HIDA scan showing an elevated ejection fraction. Patient says the pain she experienced with that test was identical to her normal right upper quadrant pain attacks. Patient is interested in cholecystectomy. Describes intermittent diarrhea and constipation. No change in the color of her skin urine or stool. Past Medical History Past Medical History: Fibromyalgia, GERD/Reflux, Hyperlipidemia, Hypertension, Thyroid Disorder Additional Past Medical History / Comment(s): depression, chronic back pain, thyroid nodule. GALLBLADDER DISORDER History of Any Multi-Drug Resistant Organisms: None Reported Past Surgical History: Back Surgery, Section, Hysterectomy, Tonsillectomy Additional Past Surgical History / Comment(s): CERVICAL FUSION X2. RT THYROIDECTOMY. COLONOSCOPY/EGD Past Anesthesia/Blood Transfusion Reactions: No Reported Reaction Smoking Status: Current every day smoker - Past Family History Mother Family Medical History: Cancer Additional Family Medical History / Comment(s): LUNG Medications and Allergies Home Medications Medication Instructions Recorded Confirmed Type Gabapentin 600 mg PO TID 06/15/14 02/11/22 History DULoxetine HCL [Cymbalta] 60 mg PO DAILY 05/09/17 02/11/22 History Aspirin EC [Ecotrin Low Dose] 81 mg PO DAILY 02/11/22 02/11/22 History Atorvastatin [Lipitor] 40 mg PO DAILY 02/11/22 02/11/22 History Metoprolol Succinate (ER) [Toprol 25 mg PO DAILY 02/11/22 02/11/22 History Xl] Omeprazole 40 mg PO DAILY 02/11/22 02/11/22 History methocarbamoL [Robaxin] 750 mg PO QID PRN 02/11/22 02/11/22 History Allergies Allergy/AdvReac Type Severity Reaction Status Date / Time Fish Containing Products Allergy Itching Verified 02/11/22 15:55 Surgical - Exam Physical exam: General: Well-developed, well-nourished HEENT: Normocephalic, sclerae nonicteric Abdomen: Nontender, nondistended Extremities: No edema Neuro: Alert and oriented Assessment and Plan (1) Cholecystitis Narrative/Plan: 51-year-old female with cholecystitis. We'll proceed with laparoscopic cholecystectomy, possible open cholecystectomy at this time. Risks of the patient's symptoms may persist or even worsen with gallbladder removal discussed. Risks of bleeding, infection, bile leak, bile duct injury, retained common bile duct stone, trocar injury, conversion to an open procedure, hernia, anesthesia related complications were reviewed. The patient understands and wishes to proceed. Status: Acute Code(s): K81.9 - CHOLECYSTITIS, UNSPECIFIED SNOMED Code(s): 34098740
[2022-02-14 09:18] VITALS: TEMP 96.9
--- NOTE | 2022-02-14 10:51 | P.OP ---
Date of Procedure: 02/14/22 Procedure(s) Performed: PREOPERATIVE DIAGNOSIS: Chronic cholecystitis POSTOPERATIVE DIAGNOSIS: Same PROCEDURE: Laparoscopic cholecystectomy SURGEON: Kd EBL: Minimal see anesthesia record ANESTHESIA: Gen. COMPLICATIONS: None OPERATIVE PROCEDURE: The patient was brought and placed on the operating room table in the supine position. The patient was placed under general anesthesia at that time. The abdomen was prepped and draped in the usual sterile fashion. A small vertical infraumbilical incision was made. The fascia was grasped with the Yaakov forceps. The fascia was retracted anteriorly. The Veress needle was advanced into the peritoneal cavity. The saline drop test was normal. Insufflation took place up to 15 mmHg. A 5 mm optical trocar was advanced and the peritoneal cavity. 2 additional 5 mm trochars were placed in the right upper quadrant under direct visualization. A 12 mm trocar was advanced into the epigastric incision site. The gallbladder was retracted superiorly and laterally. The peritoneum overlying the infundibulum was bluntly dissected. The patient's cystic duct was visualized. The junction between the cystic duct common and hepatic duct was identified. The critical view of safety was achieved after blunt dissection. The cystic duct was then divided after placement of 3 12 mm clips on the patient's side and one on the specimen side. The cystic artery was identified and clipped as well. A small vessel was seen along the gallbladder fossa and clipped as well. The gallbladder was then removed from the liver bed using electrocautery. The gallbladder was then removed from the epigastric trocar site with an Endo Catch bag. The gallbladder fossa was irrigated with saline. There was no evidence of any bleeding or biliary drainage seen. The fascia at the 12 millimeter site was closed using a Luis-Marlys 0 Vicryl stitch. The trochars were then removed. The skin at all 4 sites was closed using a 4-0 Monocryl stitch. Skin glue was utilized on the incision sites. At the end of this procedure the sponge and needle counts were correct. DISPOSITION: Stable to the recovery room
[2022-02-14] MEDS: HYDROmorphone 0.5 MG/0.5 ML SYRINGE IVP PRN ×4 (11:41→12:08)
[2022-02-14 12:24] VITALS: RESP 15
[2022-02-14 13:35] VITALS: BP 141/71; PULSE 72
== END ==
LOC: OR 08:28
PROVIDERS: ATTEND Surgery
DX: K81.1 Chronic cholecystitis (principal); K21.9 Gastro-esophageal reflux disease without esophagitis; M79.7 Fibromyalgia; E78.5 Hyperlipidemia, unspecified; I10 Essential (primary) hypertension; E07.9 Disorder of thyroid, unspecified; G89.29 Other chronic pain; F32.A Depression, unspecified; F17.200 Nicotine dependence, unspecified, uncomplicated; Z98.891 History of uterine scar from previous surgery; Z90.710 Acquired absence of both cervix and uterus; Z98.890 Other specified postprocedural states; Z90.89 Acquired absence of other organs; Z80.1 Family history of malignant neoplasm of trachea, bronchus and lung; Z79.1 Long term (current) use of non-steroidal anti-inflammatories (NSAID); Z79.82 Long term (current) use of aspirin; Z79.890 Hormone replacement therapy; Z91.013 Allergy to seafood; Z79.899 Other long term (current) drug therapy
CPT/HCPCS: 47562; 88304; J2250; J0330; J1100; J2710; J0690; J2405; J3010; J1170 ×2; J1885; J2704; J1644; J2001

== ENCOUNTER 2023-03-23 08:31 | Inpatient (IN) | payer MEDICARE ==
[2023-03-23] MEDS ORDERED: SODIUM CHLORIDE 0.9% 1,000 ML IV STA (08:36)
[2023-03-23 09:06] LABS: Basophils % (A) 1 %; Eosinophils # (A) 0.3 k/uL (0-0.7); Eosinophils % (A) 4 %; HCT 38.3 % (34.0-46.0); HGB 12.4 gm/dL (11.4-16.0); Lymphocytes # (A) 3.5 k/uL (1.0-4.8); Lymphocytes % (A) 45 %; MCH 29.6 pg (25.0-35.0); MCHC 32.5 g/dL (31.0-37.0); MCV 91.2 fL (80.0-100.0); Mean Platelet Volume 7.4; Monocytes # (A) 0.4 k/uL (0-1.0); Monocytes % (A) 5 %; Neutrophils # (A) 3.4 k/uL (1.3-7.7); Neutrophils % (A) 44 %; Platelet Count 293 k/uL (150-450); RDW 14.2 % (11.5-15.5); WBC 7.8 k/uL (3.8-10.6)
--- NOTE | 2023-03-23 09:09 | CT ---
EXAMINATION TYPE: CT brain [place] wo con DATE OF EXAM: 03/23/2023 COMPARISON: None HISTORY: right sided weakness CT DLP: 1482.1 mGycm, Automated exposure control for dose reduction was used. CONTRAST: Patient injected with 0 mL of Isovue 300. CT of the brain is performed utilizing 3 mm thick sections through the posterior fossa and 3 mm thick sections through the remaining calvarium. Study is performed within 24 hours of arrival to the hospital. No abnormal hyperdensity is present to suggest an acute intracranial hemorrhage. No mass lesion is evident. Normal physiologic basal ganglion calcification is present bilaterally. No acute infarcts are evident. Ventricles and sulci are appropriate for the patient age. Paranasal sinuses and mastoid air cells within the [id number] are clear. IMPRESSIONS: 1. No acute intracranial process. Follow-up MRI can be performed as clinically indicated. CT cervical spine. COMPARISON: 09/12/2020 CT of the cervical spine is performed in the axial plane at 2 mm thick sections. Reconstructed image s in the coronal, and sagittal plane are reviewed on the computer. No acute fractures are evident. Vertebral body alignment is straightened. Anterior cervical fusion is present C6-7. Disc heights are preserved. Appears to be some tubal body height loss at C5-6. Alignment appears stable from comparison. No spinal canal stenosis is evident. There is some mild bilateral foraminal narrowing at C6-7 and C5-6 IMPRESSION: 1. No acute osseous abnormalities cervical spine. Follow-up can be performed as clinically indicated. 2. Chronic changes appear similar to the 2020 comparison.
--- NOTE | 2023-03-23 09:14 | XR ---
EXAMINATION TYPE: XR chest 2V DATE OF EXAM: 03/23/2023 COMPARISON: 05/09/2017 INDICATION: Altered mental status TECHNIQUE: Frontal and lateral views of the chest are obtained. FINDINGS: The heart size is normal. The pulmonary vasculature is normal. The lungs are clear. IMPRESSION: 1. No acute pulmonary process.
[2023-03-23 09:18] LABS: INR 0.9 (<1.2); Partial Thromboplastin Time 23.4 sec (22.0-30.0); Prothrombin Time 10.2 sec (10.0-12.5)
[2023-03-23 09:22] LABS: Glucose,Whole Blood 68 mg/dL (70-110)
--- NOTE | 2023-03-23 09:22 | CT ---
EXAMINATION TYPE: CT angio head neck DATE OF EXAM: 03/23/2023 HISTORY: right sided weakness COMPARISON: None CT DLP: 566.5 mGycm. Automated Exposure Control for Dose Reduction was Utilized. TECHNIQUE: CTA scan of the neck is performed with IV Contrast, patient injected with 65 mL of Isovue 370, axial images are obtained, coronal and sagittal reformatted images are reviewed. Three-D recons tructed images are created on an independent workstation and reviewed. Source images are reviewed. FINDINGS: Carotid/Vascular Structures: There is a 3 vessel arch. Common carotid arteries bifurcate into internal and external carotid arteries without significant valeria w limiting stenosis. Some minimal plaquing is likely present at the right internal carotid artery wit h somewhat greater narrowing at the right external carotid artery origin. Right internal carotid ar ry narrowing appears to be less than 50%. Right vertebral artery is dominant.. Internal carotid arteries and vertebral arteries are patent to the skull base. Cervical of [place]: Vertebral basilar system appears normal. Posterior cerebral vasculature is unrema rkable. Internal carotid arteries bifurcate normally into A1 and M1 segments. A2 segments are normal. The anterior communicating artery is patent. The right posterior communicating artery is absent. The left posterior communicating artery is absent. IMPRESSION: 1. No flow-limiting stenosis bilateral carotid bifurcations. Minimal narrowing less than 50% at the o rigin of the right internal carotid artery may be present. 2. Normal [place] NASCET criteria was used in interpretation of this exam?
--- NOTE | 2023-03-23 09:27 | ED ---
General Adult HPI - General Chief complaint: Altered Mental Status Stated complaint: AMS Time Seen by Provider: 03/23/23 08:31 Source: patient, EMS, RN notes reviewed, old records reviewed Mode of arrival: EMS Limitations: no limitations - History of Present Illness Initial comments: This a 52-year-old female who presents emergency Department because son found her on the floor earlier amongst lunch boxes and her speech was not clear she was unable to express herself. She did not want to come but the son insisted he said they were brought her to the emergency department. Patient does smoke marijuana but there is no history of drinking or drug use per EMS per the son. Patient denies any headache patient denies any numbness weakness patient does not want to be here. Patient denies chest pain difficulty breathing or shortness of breath. Patient denies any fever chills. - Related Data Home Medications Medication Instructions Recorded Confirmed Gabapentin 600 mg PO TID 06/15/14 02/14/22 DULoxetine HCL [Cymbalta] 60 mg PO DAILY 05/09/17 02/14/22 Aspirin EC [Ecotrin Low Dose] 81 mg PO DAILY 02/11/22 02/14/22 Atorvastatin [Lipitor] 40 mg PO DAILY 02/11/22 02/14/22 Metoprolol Succinate (ER) [Toprol 25 mg PO DAILY 02/11/22 02/14/22 Xl] Omeprazole 40 mg PO DAILY 02/11/22 02/14/22 methocarbamoL [Robaxin] 750 mg PO QID PRN 02/11/22 02/14/22 Previous Rx's Medication Instructions Recorded oxyCODONE HCL [OxyIR] 5 mg PO Q6H PRN 3 Days #6 tab 02/14/22 Allergies Allergy/AdvReac Type Severity Reaction Status Date / Time Fish Containing Products Allergy Itching Verified 03/23/23 08:37 Review of Systems ROS Statement: Those systems with pertinent positive or pertinent negative responses have been documented in the HPI. ROS Other: All systems not noted in ROS Statement are negative. Past Medical History Past Medical History: Fibromyalgia, GERD/Reflux, Hyperlipidemia, Hypertension, Thyroid Disorder Additional Past Medical History / Comment(s): depression, chronic back pain, thyroid nodule. GALLBLADDER DISORDER History of Any Multi-Drug Resistant Organisms: None Reported Past Surgical History: Back Surgery, Section, Hysterectomy, Tonsillectomy Additional Past Surgical History / Comment(s): CERVICAL FUSION X2. RT THYROIDECTOMY. COLONOSCOPY/EGD Past Anesthesia/Blood Transfusion Reactions: No Reported Reaction Past Psychological History: Anxiety Smoking Status: Current every day smoker - Past Family History Mother Family Medical History: Cancer Additional Family Medical History / Comment(s): LUNG General Exam - General Exam Comments Initial Comments: GENERAL: Patient is well-developed and well-nourished. Patient is nontoxic and well- hydrated and is in no acute distress. ENT: Neck is soft and supple. No significant lymphadenopathy is noted. Oropharynx is clear. Moist mucous membranes. Neck has full range of motion without eliciting any pain. EYES: The sclera were anicteric and conjunctiva were pink and moist. Extraocular movements were intact and pupils were equal round and reactive to light. Eyelids were unremarkable. PULMONARY: Unlabored respirations. Good breath sounds bilaterally. No audible rales rhonchi or wheezing was noted. CARDIOVASCULAR: There is a regular rate and rhythm without any murmurs gallops or rubs. ABDOMEN: Soft and nontender with normal bowel sounds. SKIN: Skin is clear with no lesions or rashes and otherwise unremarkable. NEUROLOGIC: Patient is alert and oriented x3. Cranial nerves II through XII are grossly intact. Motor and sensory are also intact. Patient has expressive aphasia. Symmetrical smile. Finger to nose testing is shaky bilaterally MUSCULOSKELETAL: Normal extremities with adequate strength and full range of motion. No lower extremity swelling or edema. No calf tenderness. LYMPHATICS: No significant lymphadenopathy is noted PSYCHIATRIC: Normal psychiatric evaluation. Limitations: no limitations Course Vital Signs 03/23/23 03/23/23 03/23/23 08:35 08:37 08:45 Temperature 97.7 F Pulse Rate 102 H 95 94 Respiratory 22 18 18 Rate Blood Pressure 138/94 146/84 144/89 O2 Sat by Pulse 96 95 95 Oximetry 03/23/23 03/23/23 03/23/23 09:00 09:15 09:30 Temperature Pulse Rate 96 96 98 Respiratory 18 18 18 Rate Blood Pressure 119/79 148/73 129/93 O2 Sat by Pulse 95 96 95 Oximetry 03/23/23 10:24 Temperature Pulse Rate Respiratory 18 Rate Blood Pressure 157/85 O2 Sat by Pulse Oximetry Medical Decision Making - Medical Decision Making EKG interpreted by myself. EKG shows a sinus rhythm at 96 bpm PA interval 156 QRS is 110 QT interval 320 QTC is 434. Patient's no ST segment elevation or depression. Was pt. sent in by a medical professional or institution (JOSE Romero, [employer] CHIEF CLERK, urgent care, hospital, or longterm...) When possible be specific @ -No Did you speak to anyone other than the patient for history (EMS, parent, family, police, friend...)? What history was obtained from this source @ -EMS gave most of the history Did you review nursing and triage notes (agree or disagree)? Why? @ -I reviewed and agree with nursing and triage notes Were old charts reviewed (outside hosp., previous admission, EMS record, old EKG, old radiological studies, urgent care reports/EKG's, longterm records)? Report findings @ -I reviewed prior charts and laboratories patient Differential Diagnosis (chest pain, altered mental status, abdominal pain women, abdominal pain men, vaginal bleeding, weakness, fever, dyspnea, syncope, headache, dizziness, GI bleed, back pain, seizure, CVA, palpatations, mental h ealth, musculoskeletal)? @ -Differential CVA Ischemic stroke, hemorrhagic stroke, brain tumor, atypical migraine, Wernicke's encephalopathy, seizure, multiple sclerosis, meningitis, encephalitis, hypoglycemia, Guillain-Kimball, electrolytes disturbance, myasthenia gravis.... This is not meant to be an all-inclusive list EKG interpreted by me (3pts min.). @ -As above X-rays interpreted by me (1pt min.). @ -Chest x-ray shows no acute abnormality CT interpreted by me (1pt min.). @ -The brain shows no acute abnormality. CT of the head and neck shows no acute abnormality. CT of the C-spine shows no acute abnormality. U/S interpreted by me (1pt. min.). @ -None done What testing was considered but not performed or refused? (CT, X-rays, U/S, labs)? Why? @ -None What meds were considered but not given or refused? Why? @ -None Did you discuss the management of the patient with other professionals (professionals i.e. JOSE Romero, [employer] CHIEF CLERK, lab, RT, psych nurse, social worker health services, timber treating tank operator, teacher, correctional officer sergeant, oil field caser)? Give summary @ -I spoke with the [facility]ist agreed to admit the patient to the patient wrote admitting orders Was smoking cessation discussed for >3mins.? @ -No Was critical care preformed (if so, how long)? @ -35 minutes Were there social determinants of health that impacted care today? How? (Homelessness, low income, unemployed, alcoholism, drug addiction, transportation, low edu. Level, literacy, decrease access to med. care, correction, rehab)? @ -No Was there de-escalation of care discussed even if they declined (Discuss DNR or withdrawal of care, Hospice)? DNR status @ -No What co-morbidities impacted this encounter? (DM, HTN, Smoking, COPD, CAD, Cancer, CVA, ARF, Chemo, Hep., AIDS, mental health diagnosis, sleep apnea, morbid obesity)? @ -None Was patient admitted / discharged? Hospital course, mention meds given and route, prescriptions, significant lab abnormalities, going to OR and other pertinent info. @ -Patient continued to have expressive aphasia though was slightly improved by the time she was admitted. Scans were normal and lab work was normal patient will be admitted and neurology will be consulted. This was called a code stroke overhead. Undiagnosed new problem with uncertain prognosis? @ -No Drug Therapy requiring intensive monitoring for toxicity (Heparin, Nitro, Insulin, Cardizem)? @ -No Were any procedures done? @ -No Diagnosis/symptom? @ -CVA Acute, or Chronic, or Acute on Chronic? @ -Acute Uncomplicated (without systemic symptoms) or Complicated (systemic symptoms)? @ -Complicated Side effects of treatment? @ -No Exacerbation, Progression, or Severe Exacerbation? @ -No Poses a threat to life or bodily function? How? (Chest pain, USA, SD, pneumonia, PE, COPD, DKA, ARF, appy, cholecystitis, CVA, Diverticulitis, Homicidal, Suicidal, threat to staff... and all critical care pts) @ -Yes this could lead to a further stroke and significant morbidity or mortality - Lab Data Result diagrams: 03/23/23 08:50 03/23/23 08:50 Lab Results 03/23/23 03/23/23 03/23/23 Range/Units 08:50 08:50 08:50 WBC 7.8 (3.8-10.6) k/uL RBC 4.20 (3.80-5.40) m/uL Hgb 12.4 (11.4-16.0) gm/dL Hct 38.3 (34.0-46.0) % MCV 91.2 (80.0-100.0) fL MCH 29.6 (25.0-35.0) pg MCHC 32.5 (31.0-37.0) g/dL RDW 14.2 (11.5-15.5) % Plt Count 293 (150-450) k/uL MPV 7.4 Neutrophils % 44 % Lymphocytes % 45 % Monocytes % 5 % Eosinophils % 4 % Basophils % 1 % Neutrophils # 3.4 (1.3-7.7) k/uL Lymphocytes # 3.5 (1.0-4.8) k/uL Monocytes # 0.4 (0-1.0) k/uL Eosinophils # 0.3 (0-0.7) k/uL Basophils # 0.0 (0-0.2) k/uL PT 10.2 (10.0-12.5) sec INR 0.9 (<1.2) APTT 23.4 (22.0-30.0) sec Sodium 140 (137-145) mmol/L Potassium 3.9 (3.5-5.1) mmol/L Chloride 107 (98-107) mmol/L Carbon Dioxide 25 (22-30) mmol/L Anion Gap 8 mmol/L BUN 16 (7-17) mg/dL Creatinine 1.11 H (0.52-1.04) mg/dL Est GFR (CKD-EPI)AfAm 66 (>60 ml/min/1.73 sqM) Est GFR (CKD-EPI)NonAf 57 (>60 ml/min/1.73 sqM) Glucose 95 (74-99) mg/dL POC Glucose (mg/dL) (70-110) mg/dL POC Glu Audit Manager ID Calcium 9.3 (8.4-10.2) mg/dL Total Bilirubin 0.2 (0.2-1.3) mg/dL AST 19 (14-36) U/L ALT 11 (4-34) U/L Alkaline Phosphatase 110 (38-126) U/L Creatine Kinase 86 (30-135) U/L Troponin I (0.000-0.034) ng/mL Total Protein 7.4 (6.3-8.2) g/dL Albumin 4.0 (3.5-5.0) g/dL Serum Alcohol <10 mg/dL 03/23/23 03/23/23 Range/Units 08:50 09:20 WBC (3.8-10.6) k/uL RBC (3.80-5.40) m/uL Hgb (11.4-16.0) gm/dL Hct (34.0-46.0) % MCV (80.0-100.0) fL MCH (25.0-35.0) pg MCHC (31.0-37.0) g/dL RDW (11.5-15.5) % Plt Count (150-450) k/uL MPV Neutrophils % % Lymphocytes % % Monocytes % % Eosinophils % % Basophils % % Neutrophils # (1.3-7.7) k/uL Lymphocytes # (1.0-4.8) k/uL Monocytes # (0-1.0) k/uL Eosinophils # (0-0.7) k/uL Basophils # (0-0.2) k/uL PT (10.0-12.5) sec INR (<1.2) APTT (22.0-30.0) sec Sodium (137-145) mmol/L Potassium (3.5-5.1) mmol/L Chloride (98-107) mmol/L Carbon Dioxide (22-30) mmol/L Anion Gap mmol/L BUN (7-17) mg/dL Creatinine (0.52-1.04) mg/dL Est GFR (CKD-EPI)AfAm (>60 ml/min/1.73 sqM) Est GFR (CKD-EPI)NonAf (>60 ml/min/1.73 sqM) Glucose (74-99) mg/dL POC Glucose (mg/dL) 68 L (70-110) mg/dL POC Glu Audit Manager ID May Calcium (8.4-10.2) mg/dL Total Bilirubin (0.2-1.3) mg/dL AST (14-36) U/L ALT (4-34) U/L Alkaline Phosphatase (38-126) U/L Creatine Kinase (30-135) U/L Troponin I <0.012 (0.000-0.034) ng/mL Total Protein (6.3-8.2) g/dL Albumin (3.5-5.0) g/dL Serum Alcohol mg/dL Critical Care Time Critical Care Time: Yes Total Critical Care Time: 35 Disposition Clinical Impression: CVA (cerebral vascular accident) Disposition: ADMITTED IP TO THIS HOSP Referrals: Jazzmine Avelar MD [Primary Care Provider] - 1-2 days Time of Disposition: 10:36
[2023-03-23 09:29] LABS: ALT 11 U/L (4-34); AST 19 U/L (14-36); African American GFR (CKD) 66 (>60 ml/min/1.73 sqM); Alcohol <10 mg/dL; Alkaline Phosphatase 110 U/L (38-126); Anion Gap 8 mmol/L; Blood Urea Nitrogen 16 mg/dL (7-17); Calcium 9.3 mg/dL (8.4-10.2); Carbon Dioxide 25 mmol/L (22-30); Chloride 107 mmol/L (98-107); Creatine Kinase 86 U/L (30-135); Glucose 95 mg/dL (74-99); Non-African American GFR(CKD) 57 (>60 ml/min/1.73 sqM); Potassium 3.9 mmol/L (3.5-5.1); Sodium 140 mmol/L (137-145); Total Bilirubin 0.2 mg/dL (0.2-1.3); Total Protein 7.4 g/dL (6.3-8.2)
[2023-03-23] MEDS ORDERED: DEXTROSE 50% SYRINGE 50 ML IVP STA (09:30)
[2023-03-23 10:36] LABS: Glucose,Whole Blood 99 mg/dL (70-110)
[2023-03-23 10:44] LABS: Amphetamine Screen,Urine Not Detected (NotDetected); Barbiturate Screen,Urine Not Detected (NotDetected); Benzodiazepines Screen,Urine Not Detected (NotDetected); Cocaine Screen,Urine Not Detected (NotDetected); Methadone Screen, Urine Not Detected (NotDetected); Opiate Screen,Urine Not Detected (NotDetected); Oxycodone Screen, Urine Not Detected (NotDetected); Phencyclidine Screen,Urine Not Detected (NotDetected); Tricyclic Antidepressant,Urine Detected (NotDetected); Urn Cannabinoid Scrn Detected (NotDetected)
[2023-03-23] MEDS ORDERED: ASPIRIN 325 MG TAB PO STA (10:44)
--- NOTE | 2023-03-23 16:09 | P.CNNES ---
History of Present Illness Consult date: 03/23/23 Requesting physician: Nathan Alfonso Reason for Consult: CVA History of Present Illness: Patient is a 52-year-old right-handed female came to the hospital by ambulance this morning at 8:31 AM., for altered mental status and because her son found her on the floor. Patient also has been having some speech problem. She complains of significant dry mouth. Patient tells me that she had a similar hospitalization in December 2022 when she could not walk, could not talk. However at that time she was admitted through [facility]. They did perform MRI of the brain without contrast and did not find anything. Patient claims she did not have MRA done at that time. Patient states "I am sure I am weak if I am talking this way". Patient believes that how she is feeling, she probably will not be able to walk, like how she did in December 2022. Patient states that she has been out of her Elavil for 3 days, started it back about 2 days ago. She is prescribed 2 tablets which is 50 mg, but for the last 2 days she has been taking only 1 tablet at bedtime for insomnia. She does take gabapentin 600 mg 3 times daily. As per EMS flowsheet, when EMS arrived, patient was laying in her bed. Patient's son stated that he came in the room, this morning to find the patient laying on the ground with clothes and boxes on top of her. Son also mentioned that patient is altered and not normally like this. Patient has a history of multiple falls within the last month. Upon asking the questions, patient began stuttering and not able to formulate a complete sentence. Unknown if patient hit her head, loss consciousness or is on blood thinners. Patient initially refused all treatment and transport to the hospital. Patient denied any chest pain difficulty breathing, shortness of breath, dizziness blurred vision, tinnitus, jaw pain, neck pain, back pain or abdominal pain, nausea vomiting, numbness, tingling, cough or fever. On examination patient was alert and oriented x 2 with GCS of 13. Patient's vitals at the scene was blood pressure 140/88, pulse rate 115, respiration 18, saturation 100% on room air. Blood sugar was 101. Blood test shows normal CBC, PT PTT, normal CMP, troponin, CK, urine drug screen positive for tricyclic and marijuana. Blood alcohol level was negative. Chest x-ray and EKG are normal with sinus tachycardia. CTA head and neck showed no flow-limiting stenosis bilateral carotid bifurcations. Minimal narrowing less than 50% at the origin of the right ICA may be present. Normal [place]. CT head showed no acute intracranial process. I personally reviewed CT head agree with the findings. CT of the cervical spine showed no acute osseous abnormalities cervical spine. Chronic changes appears similar to the 2020 comparison. Patient tells me that she had a similar hospitalization in December 2022 when she could not walk, could not talk. However at that time she was admitted through [facility]. They did perform MRI of the brain without contrast and did not find anything. Patient claims that she did not have any MRA done at that time. Patient was admitted to the hospital and evaluated by Dr. Pulido previously 05/10/2017 for gabapentin and Abilify overdose, acute encephalopathy, acute delirium and depression. Patient smokes marijuana about once a week. Review of Systems Constitutional: Reports sweats, Denies chills, Denies fever, Denies weight gain, Denies weight loss Eyes: bilateral blurred vision, denies diplopia, denies pain Ears: deny: decreased hearing, ear discharge Ears, nose, mouth and throat: Denies headache (very occasional, none right now), Denies sore throat, Denies vertigo Cardiovascular: Reports lightheadedness, Denies chest pain, Denies shortness of breath Respiratory: Denies cough, Denies excessive sputum Gastrointestinal: Denies abdominal pain, Denies diarrhea, Denies nausea, Denies vomiting Genitourinary: Denies dysuria, Denies hematuria, Denies mixed incontinence, Denies urinary frequency Musculoskeletal: Reports low back pain, Reports neck pain Integumentary: Denies pruritus, Denies rash Neurological: Reports as per HPI Psychiatric: Reports anxiety, Reports depression Endocrine: Reports fatigue, Denies weight change Hematologic/Lymphatic: Denies easy bleeding, Denies easy bruising Past Medical History Past Medical History: Fibromyalgia, GERD/Reflux, Hyperlipidemia, Hypertension, Thyroid Disorder Additional Past Medical History / Comment(s): depression, chronic back pain, thyroid nodule. GALLBLADDER DISORDER History of Any Multi-Drug Resistant Organisms: None Reported Past Surgical History: Back Surgery, Section, Hysterectomy, Tonsillectomy Additional Past Surgical History / Comment(s): CERVICAL FUSION X2. RT THYROIDECTOMY. COLONOSCOPY/EGD Past Anesthesia/Blood Transfusion Reactions: No Reported Reaction Past Psychological History: Anxiety Smoking Status: Current every day smoker - Past Family History Mother Family Medical History: Cancer Additional Family Medical History / Comment(s): LUNG Medications and Allergies Home Medications Medication Instructions Recorded Confirmed Type Gabapentin 600 mg PO TID 06/15/14 03/23/23 History DULoxetine HCL [Cymbalta] 60 mg PO BID 05/09/17 03/23/23 History Aspirin EC [Ecotrin Low Dose] 81 mg PO DAILY 02/11/22 03/23/23 History Atorvastatin [Lipitor] 40 mg PO DAILY 02/11/22 03/23/23 History Omeprazole 40 mg PO DAILY 02/11/22 03/23/23 History Amitriptyline HCl [Elavil] 25 mg PO HS 03/23/23 03/23/23 History Atenolol/Chlorthalidone [Tenoretic 1 tab PO DAILY 03/23/23 03/23/23 History 50 Tablet] Cyclobenzaprine [Flexeril] 5 mg PO TID PRN 03/23/23 03/23/23 History Ergocalciferol [Vitamin D2 (1250 1,250 mcg PO Q7D 03/23/23 03/23/23 History Mcg = 91738 Iu)] Levothyroxine Sodium [Synthroid] 50 mcg PO DAILY 03/23/23 03/23/23 History NIFEdipine [NIFEdipine ER 60 mg PO DAILY 03/23/23 03/23/23 History (Osmotic)] Nitroglycerin Sl Tabs [Nitrostat] 0.4 mg SL Q5M PRN 03/23/23 03/23/23 History Ondansetron Odt [Zofran Odt] 4 mg PO Q6H PRN 03/23/23 03/23/23 History Triamcinolone 0.1% Cream [Kenalog 1 applic TOPICAL BID PRN 03/23/23 03/23/23 History 0.1% Cream] Triamcinolone Acetonide [Nasacort] 1 spray EA NOSTRIL BID 03/23/23 03/23/23 History lisinopriL [Prinivil] 30 mg PO DAILY 03/23/23 03/23/23 History Allergies Allergy/AdvReac Type Severity Reaction Status Date / Time Fish Containing Products Allergy Itching Verified 03/23/23 11:05 Physical Examination - Vital Signs Vital Signs: Vital Signs Temp Pulse Resp BP Pulse Ox 03/23/23 11:07 96 16 116/78 98 03/23/23 10:24 18 157/85 03/23/23 09:30 98 18 129/93 95 03/23/23 09:15 96 18 148/73 96 03/23/23 09:00 96 18 119/79 95 03/23/23 08:45 94 18 144/89 95 03/23/23 08:37 95 18 146/84 95 03/23/23 08:35 97.7 F 102 H 22 138/94 96 Intake and Output 03/22/23 03/23/23 03/23/23 22:59 06:59 14:59 Other: Weight 72.575 kg Patient is a middle aged female, in no acute distress. Patient is alert awake. Patient states it is the month of January (actually it is March) and states the year is . She knows that she is in [facility] in [place] and name of the current president is Matthew Bui. Patient can name and repeat very well. She can read and write very well. No aphasia. Patient is intermittently stuttering. She has intermittent myoclonic jerking of the facial region, which leads to halted, stuttering speech. Otherwise no aphasia or dysarthria. Attention, concentration and fund of knowledge is adequate. On cranial nerve examination, pupils are equal, round and reacting to light, visual bahena are full on confrontation, with no neglect on double simultaneous stimulation. Extraocular muscles are intact with no nystagmus. Face is symmetric, tongue protrudes to the midline. Palatal elevation and sensation normal, hearing and shoulder shrug normal, facial sensation normal. On muscle strength testing, there is no pronator drift and the strength is normal in arms and legs distally and proximally. Deep tendon reflexes are symmetric 2 at the biceps, 2 brachioradialis, 3 at the knees, 2 ankles and plantars downgoing. Sensory to touch is equal with no neglect on double simultaneous stimulation. Cerebellar function showed mild tremulousness for ildcbq-[id number] testing bilaterally, but no ataxia for [id number] testing. No dysdiadochokinesia. Patient has mild ataxia for [id number] testing bilaterally. Tone and bulk of muscles normal. Patient has a mild myoclonic jerks of outstretched hands. Gait deferred.. On general examination, there is no carotid bruit or murmur, S1-S2 audible. Chest is clear on consultation. Abdomen is soft nontender. No organomegaly, bowel sounds present. Peripheral pulses are present. No peripheral edema. Results - Laboratory Findings CBC and BMP: 03/23/23 08:50 03/23/23 08:50 Abnormal Lab Findings: Abnormal Labs 03/23/23 03/23/23 03/23/23 08:50 09:20 10:23 Creatinine 1.11 H POC Glucose (mg/dL) 68 L U Tricyclic Antidepress Detected H U Marijuana (THC) Screen Detected H Assessment and Plan Assessment: * Altered mental status, status post fall, myoclonic twitching of the facial region/slightly of the hands, with associated speech difficulty/stuttering/halted speech, likely due to metabolic encephalopathy. Doubt stroke/TIA. Patient has no lateralizing symptoms. * Fibromyalgia * Hyperlipidemia * Hypertension * Depression * Chronic back pain * History of cervical fusion x 2 Plan: * Patient probably has metabolic encephalopathy. Doubt stroke/TIA. Exact cause remains uncertain. * EEG was performed, which was abnormal due to background slowing and disorganization of mild degree, suggestive of toxic/metabolic encephalopathy. No epileptiform activity was seen. * CTA head and neck showed no flow-limiting stenosis bilateral carotid bifurcations. Minimal narrowing less than 50% at the origin of the right ICA may be present. Normal [place]. * Check stat gabapentin level. Patient has dry mouth, but denies taking overdose on amitriptyline, in fact taking lower than recommended amount of 1 tablets instead of 2 tablets. * Continue aspirin 325 mg daily. * Check ammonia, B12, folate, TSH, fasting lipid panel. Continue Lipitor 40 mg daily. * We will obtain medical records from [facility] regarding previous admission for similar symptomatology in December 2022. * Neurology will follow. Thank you for the consult.
[2023-03-23] MEDS ORDERED: ONDANSETRON ODT 4 MG TAB PO PRN (16:21)
[2023-03-23] MEDS ORDERED: NITROGLYCERIN SL TABS 0.4 MG TAB SUBLINGUAL PRN (16:21)
[2023-03-23] MEDS ORDERED: ERGOCALCIFEROL 1,250 MCG (50,000 IU) CAPSULE PO SCH (16:30)
[2023-03-23] MEDS: ACETAMINOPHEN TAB 500 MG TAB PO PRN (17:04)
[2023-03-23 20:01] LABS: T4, Free (Free Thyroxine) 1.12 ng/dL (0.78-2.19)
[2023-03-23] MEDS: DULoxetine HCL 60 MG CAPSULE.DR PO SCH (20:01)
--- NOTE | 2023-03-24 00:26 | P.HPIM ---
History of Present Illness H&P Date: 03/23/23 Chief Complaint: Altered mental status Patient is a 52-year-old female history of past medical history of hypertension, hyperlipidemia, hypothyroidism, fibromyalgia, chronic back pain, anxiety/depression currently everyday smoker was brought to the hospital due to altered mental status. Apparently patients son found her on the floor. Patient was confused and was having slurred speech and unable to express herself. EMS was called by her son and patient was brought to ER. Patient states that she did have prior episode previously after taking Neurontin and was admitted to hospital. Initially patient did not want to come to hospital. Currently more awake and oriented. Denies any focal weakness. No bladder or bowel incontinence. Patient admits smoking marijuana. Denies any hitting her head. No complaints of headache. No numbness or tingling. No complaints of fever or chills. No chest pain or shortness of breath. No headache or dizziness or lightheadedness. Denies any recent illnesses. Chest x-ray showed no acute process. CT head and cervical spine showed no acute osseous abnormalities cervical spine. Follow-up can be performed as clinically indicated. Chronic changes appear similar to [address] angiogram of the head and neck showed no flow-limiting stenosis of bilateral carotid bifurcations. Minimal narrowing less than 50% at the origin of the internal carotid artery when present. Normal [place]. EKG showed sinus rhythm. Laboratory data showed WBC 7.8 hemoglobin 12.4 and platelets 293 MCV 91.2 BUN 16 and creatinine 1.1 and blood sugar 95. Urine Elevated. Troponin x 1 negative. CK 86. Urinalysis showed tricyclic antidepressants and marijuana. Review of Systems Constitutional: Patient denies any fever or chills . Generalized weakness. Abdomen: Patient denied any nausea or vomiting or abd. pain Cardiovascular: Patient denies any chest pain or short of breath no palpitations. Respiratory: patient denied any cough . no sputum production. No shortness of breath Neurologic: Patient denied any numbness or tingling or headache. Musculoskeletal: Patient denies any complaints of joint swelling or deformity. Skin: Negative Psychiatric: Negative Endocrine: No heat or cold intolerance. No recent weight gain. Genitourinary: No dysuria or hematuria. All other 14 point ROS negative except the above Past Medical History Past Medical History: Fibromyalgia, GERD/Reflux, Hyperlipidemia, Hypertension, Thyroid Disorder Additional Past Medical History / Comment(s): depression, chronic back pain, thyroid nodule. GALLBLADDER DISORDER History of Any Multi-Drug Resistant Organisms: None Reported Past Surgical History: Back Surgery, Section, Hysterectomy, [place]ons[place] ctomy Additional Past Surgical History / Comment(s): CERVICAL FUSION X2. RT THYROIDECTOMY. COLONOSCOPY/EGD Past Anesthesia/Blood Transfusion Reactions: No Reported Reaction Past Psychological History: Anxiety Smoking Status: Current every day smoker - Past Family History Mother Family Medical History: Cancer Additional Family Medical History / Comment(s): LUNG Medications and Allergies Home Medications Medication Instructions Recorded Confirmed Type Gabapentin 600 mg PO TID 06/15/14 03/23/23 History DULoxetine HCL [Cymbalta] 60 mg PO BID 05/09/17 03/23/23 History Aspirin EC [Ecotrin Low Dose] 81 mg PO DAILY 02/11/22 03/23/23 History Atorvastatin [Lipitor] 40 mg PO DAILY 02/11/22 03/23/23 History Omeprazole 40 mg PO DAILY 02/11/22 03/23/23 History Amitriptyline HCl [Elavil] 25 mg PO HS 03/23/23 03/23/23 History Atenolol/Chlorthalidone [Tenoretic 1 tab PO DAILY 03/23/23 03/23/23 History 50 Tablet] Cyclobenzaprine [Flexeril] 5 mg PO TID PRN 03/23/23 03/23/23 History Ergocalciferol [Vitamin D2 (1250 1,250 mcg PO Q7D 03/23/23 03/23/23 History Mcg = 32836 Iu)] Levothyroxine Sodium [Synthroid] 50 mcg PO DAILY 03/23/23 03/23/23 History NIFEdipine [NIFEdipine ER 60 mg PO DAILY 03/23/23 03/23/23 History (Osmotic)] Nitroglycerin Sl Tabs [Nitrostat] 0.4 mg SL Q5M PRN 03/23/23 03/23/23 History Ondansetron Odt [Zofran Odt] 4 mg PO Q6H PRN 03/23/23 03/23/23 History Triamcinolone 0.1% Cream [Kenalog 1 applic TOPICAL BID PRN 03/23/23 03/23/23 History 0.1% Cream] Triamcinolone Acetonide [Nasacort] 1 spray EA NOSTRIL BID 03/23/23 03/23/23 History lisinopriL [Prinivil] 30 mg PO DAILY 03/23/23 03/23/23 History Allergies Allergy/AdvReac Type Severity Reaction Status Date / Time Fish Containing Products Allergy Itching Verified 03/23/23 11:05 Physical Exam Vitals: Vital Signs Temp Pulse Pulse Pulse Resp BP BP 03/23/23 19:17 97.7 F 83 16 129/71 03/23/23 16:48 16 03/23/23 15:56 97.9 F 87 16 124/71 03/23/23 14:51 84 16 136/86 03/23/23 11:07 96 16 116/78 03/23/23 10:24 18 157/85 03/23/23 09:30 98 18 129/93 03/23/23 09:15 96 18 148/73 03/23/23 09:00 96 18 119/79 03/23/23 08:45 94 18 144/89 03/23/23 08:37 95 18 146/84 03/23/23 08:35 97.7 F 102 H 22 138/94 Pulse Ox 03/23/23 19:17 97 03/23/23 16:48 03/23/23 15:56 97 03/23/23 14:51 97 03/23/23 11:07 98 03/23/23 10:24 03/23/23 09:30 95 03/23/23 09:15 96 03/23/23 09:00 95 03/23/23 08:45 95 03/23/23 08:37 95 03/23/23 08:35 96 Intake and Output 03/23/23 03/23/23 03/23/23 06:59 14:59 22:59 Intake Total 790 Balance 790 Intake: IV 10 Invasive Line 1 10 Oral 780 Other: Voiding Method Toilet # Voids 1 Weight 72.575 kg 72.575 kg PHYSICAL EXAMINATION: Patient is lying in the bed,, no acute distress, awake alert and oriented. Drowsy and lethargic.. HEENT: Normocephalic. Neck is supple. Pupils reactive. Nostrils clear. Oral cavity is moist. Neck reveals no JVD, carotid bruits, or thyromegaly. CHEST EXAMINATION: Trachea is central. Symmetrical expansion. Bibasilar diminished sounds. Nonlabored breathing. No wheezing or rhonchi.. CARDIAC: Normal S1, S2 with no gallops. No murmurs ABDOMEN: Soft. Bowel sounds present. Nontender. No organomegaly. No abdominal bruits. Extremities: reveal no edema. No clubbing or cyanosis Neurologically awake, alert, oriented x3 able to move all extremities. No gross focal neurological deficit. Skin: No rash or skin lesions. Psychiatric: Coperative. Nonsuicidal, Musculoskeletal: No joint swelling or deformity. Results CBC & Chem 7: 03/23/23 08:50 03/23/23 08:50 Labs: Abnormal Lab Results - Last 24 Hours (Table) 03/23/23 03/23/23 03/23/23 Range/Units 08:50 09:20 10:23 Creatinine 1.11 H (0.52-1.04) mg/dL POC Glucose (mg/dL) 68 L (70-110) mg/dL TSH (0.465-4.680) mIU/L U Tricyclic Antidepress Detected H (NotDetected) U Marijuana (THC) Screen Detected H (NotDetected) 03/23/23 Range/Units 16:19 Creatinine (0.52-1.04) mg/dL POC Glucose (mg/dL) (70-110) mg/dL TSH 0.234 L (0.465-4.680) mIU/L U Tricyclic Antidepress (NotDetected) U Marijuana (THC) Screen (NotDetected) Thrombosis Risk Factor Assmnt - DVT/VTE Prophylaxis DVT/VTE Prophylaxis: Pharmacologic Prophylaxis ordered - Choose All That Apply Each Factor Represents 1 point: Age 41-60 years, Obesity (BMI >25) Other Risk Factors: No Thrombosis Risk Factor Assessment Total Risk Factor Score: 2 Thrombosis Risk Factor Assessment Level: Low Risk Assessment and Plan Assessment: Altered mental status likely toxic encephalopathy. Patient is on Neurontin and also started taking amitriptyline recently. Fibromyalgia Chronic lower back pain Hypertension Hyperlipidemia History of cervical fusion surgery x 2 History of right thyroidectomy Hypertension GERD Hypothyroidism Anxiety/depression Currently everyday smoker GI and DVT prophylaxis Plan: Patient will be continued on IV hydration with normal saline. Continue to hold Neurontin and amitriptyline. Patient will be continued on aspirin and statins. Neurology was consulted for evaluation. Hold blood pressure medications nifedipine and chlorthalidone. Continue ate nolol and lisinopril as per home regimen. Gabapentin levels was ordered. Ordered urinalysis. Continue to follow closely. Time with Patient: Greater than 30
--- NOTE | 2023-03-24 01:16 | EEG ---
ELECTROENCEPHALOGRAM REPORT PREAMBLE: This is a 52-year-old female, with altered mental status, fall in stuttering. This study is performed to evaluate for encephalopathy, rule out any epileptiform activity. EEG FINDINGS: This is a 21-channel digital EEG recorded with video component, utilizing 10/20 international system with referential and bipolar montages. Background consists of well-developed, moderately well regulated, predominantly mixed frequencies of 6- 7 hertz theta, with some sporadic alpha activity seen in bihemispheric region. Background is posterior dominant and does not seem to be reactive to eye opening or closing. Photic driving response was not seen. Hyperventilation was not done. Different stages of sleep were not seen. No focal or generalized epileptiform activity was seen. automotive drivability technician did comment about patient having bilateral arm jerking, which was reviewed on video section. There was no electrographic correlate with any epileptiform activity during this event. EKG channel showed no obvious arrhythmia. IMPRESSION: This is an abnormal EEG due to background slowing of mild degree. This is suggestive of generalized cerebral dysfunction as can be seen with toxic metabolic encephalopathy or related to diffuse structural brain abnormality. Clinical correlation is recommended. No epileptiform activity was seen. MMODL / IJN: [id number] / [facility]
[2023-03-24] MEDS: SODIUM CHLORIDE 0.9% 1,000 ML IV SCH ×2 (03:37→19:53)
[2023-03-24] MEDS: LEVOTHYROXINE 50 MCG TAB PO SCH (06:13)
[2023-03-24] MEDS: PANTOPRAZOLE 40 MG TABLET PO SCH (06:13)
[2023-03-24 07:38] LABS: Basophils % (A) 1 %; Eosinophils # (A) 0.3 k/uL (0-0.7); Eosinophils % (A) 4 %; HCT 35.5 % (34.0-46.0); HGB 11.5 gm/dL (11.4-16.0); Lymphocytes # (A) 2.9 k/uL (1.0-4.8); Lymphocytes % (A) 40 %; MCHC 32.4 g/dL (31.0-37.0); MCV 92.4 fL (80.0-100.0); Mean Platelet Volume 8.1; Monocytes # (A) 0.4 k/uL (0-1.0); Monocytes % (A) 5 %; Neutrophils # (A) 3.6 k/uL (1.3-7.7); Neutrophils % (A) 49 %; Platelet Count 263 k/uL (150-450); RBC 3.84 m/uL (3.80-5.40); RDW 14.5 % (11.5-15.5); WBC 7.3 k/uL (3.8-10.6)
[2023-03-24 07:51] LABS: African American GFR (CKD) 75 (>60 ml/min/1.73 sqM); Anion Gap 3 mmol/L; Blood Urea Nitrogen 13 mg/dL (7-17); Calcium 8.5 mg/dL (8.4-10.2); Carbon Dioxide 30 mmol/L (22-30); Chloride 108 mmol/L (98-107); Glucose 106 mg/dL (74-99); Non-African American GFR(CKD) 65 (>60 ml/min/1.73 sqM); Potassium 4.6 mmol/L (3.5-5.1); Sodium 141 mmol/L (137-145)
[2023-03-24] MEDS ORDERED: ERGOCALCIFEROL 1,250 MCG (50,000 IU) CAPSULE PO SCH (09:00)
[2023-03-24] MEDS ORDERED: CHLORTHALIDONE 25 MG TAB PO SCH (09:00)
[2023-03-24] MEDS ORDERED: NON FORMULARY DRUG (Aspirin Ec 81 MG Tablet) PO SCH (09:00)
[2023-03-24] MEDS: ASPIRIN 325 MG TAB PO SCH (09:17)
[2023-03-24] MEDS: ATORVASTATIN 40 MG TAB PO SCH (09:17)
[2023-03-24] MEDS: HEPARIN SODIUM,PORCINE 5,000 UNIT/ML 1 ML VIAL SQ SCH ×2 (09:17→16:07)
[2023-03-24] MEDS: lisinopriL 10 MG TAB PO SCH (09:17)
[2023-03-24] MEDS: atenoloL 50 MG TAB PO SCH (09:17)
[2023-03-24] MEDS: DULoxetine HCL 60 MG CAPSULE.DR PO SCH ×2 (09:17→20:05)
[2023-03-24 10:49] LABS: Appearance,Urine Clear (Clear); Bacteria,Urine Moderate /hpf; Bilirubin,Urine Negative (Negative); Blood,Urine Negative (Negative); Color,Urine Light Yellow; Glucose,Urine (UA) Negative (Negative); Hyaline Casts,Urine 1 /lpf (0-2); Ketones,Urine Negative (Negative); Leukocyte Esterase,Urine Negative (Negative); Mucus,Urine Rare /hpf; Nitrite,Urine Positive (Negative); PH, Urine 5.5 (5.0-8.0); Protein,Urine Negative (Negative); RBC,Urine <1 /hpf (0-5); Specific Gravity,Urine 1.021 (1.001-1.035); Squamous Epithelial Cell,Urine <1 /hpf (0-4); Urobilinogen,Urine <2.0 mg/dL (<2.0); WBC,Urine 1 /hpf (0-5)
[2023-03-24 13:47] LABS: Chol/HDL Ratio 3.08 Ratio; LDL Cholesterol,Calculated 63.5 mg/dL (0.0-131.0); VLDL Calculation 16.22 mg/dL (5.00-40.00)
--- NOTE | 2023-03-24 16:11 | P.PN ---
Subjective Progress Note Date: 03/24/23 Patient was seen for a follow-up. Patient states that she is feeling much better. Her speech is back to normal. The myoclonic twitches have improved. Patient states that she takes gabapentin for nerve damage, as she had issues with her neck and hands. She is on gabapentin 600 mg 3 times daily. Objective - Vital Signs Vital signs: Vital Signs Temp 97.2 F L 03/24/23 08:00 Pulse 71 03/24/23 15:52 Resp 18 03/24/23 15:52 BP 127/76 03/24/23 15:52 Pulse Ox 97 03/24/23 15:52 FiO2 Intake & Output 03/23/23 03/24/23 03/24/23 18:59 06:59 18:59 Intake Total 790 600 240 Balance 790 600 240 Weight 72.575 kg Intake: IV 10 Invasive Line 1 10 Oral 780 600 240 Other: Voiding Method Toilet Toilet # Voids 1 1 - Exam Mental status, speech and language functions are normal. Muscle strength is normal. No ataxia. Myoclonic twitching have resolved. - Labs CBC & Chem 7: 03/24/23 07:22 03/24/23 07:22 Labs: Abnormal Lab Results - Last 24 Hours (Table) 03/23/23 03/23/23 03/24/23 Range/Units 16:19 16:19 07:22 Chloride 108 H (98-107) mmol/L Glucose 106 H (74-99) mg/dL Hemoglobin A1c 6.9 H (<=6.0) % HDL Cholesterol 38.30 L (40.00-60.00) mg/dL TSH 0.234 L (0.465-4.680) mIU/L Urine Nitrite (Negative) Urine Bacteria (None) /hpf Urine Mucus (None) /hpf 03/24/23 Range/Units 09:28 Chloride (98-107) mmol/L Glucose (74-99) mg/dL Hemoglobin A1c (<=6.0) % HDL Cholesterol (40.00-60.00) mg/dL TSH (0.465-4.680) mIU/L Urine Nitrite Positive H (Negative) Urine Bacteria Moderate H (None) /hpf Urine Mucus Rare H (None) /hpf Assessment and Plan Assessment: * Altered mental status, status post fall, myoclonic twitching of the facial region/slightly of the hands, with associated speech difficulty/stutteri ng/halted speech, likely due to metabolic encephalopathy. Doubt stroke/TIA. Patient has no lateralizing symptoms. * Diabetes, new onset, with A1c is 6.9. * Hyperlipidemia * Hypertension * Depression * Chronic back pain * History of cervical fusion x 2 Plan: * Patient's metabolic encephalopathy has remarkably improved. Her speech is back to baseline. * Recommend decreasing gabapentin down to 600 mg twice daily (instead of 3 times daily) * Recommended abstinence from marijuana. * EEG was performed, which was abnormal due to background slowing and disorganization of mild degree, suggestive of toxic/metabolic encephalopathy. No epileptiform activity was seen. * CTA head and neck showed no flow-limiting stenosis bilateral carotid bifurcations. Minimal narrowing less than 50% at the origin of the right ICA may be present. Normal [place]. * Await gabapentin level. Patient has dry mouth, but denies taking overdose on amitriptyline, in fact taking lower than recommended amount of 1 tablets instead of 2 tablets. * Continue aspirin 325 mg daily. * Ammonia <9, B12 366, folate 12.30, TSH slightly decreased 0.234 with normal free T4 1.12. Internal medicine to address abnormal thyroid functions. * Fasting lipid panel with cholesterol 118, LDL 63, HDL 38, triglycerides 81. Continue Lipitor 40 mg daily. * Hemoglobin A1c 6.9, suggestive of new onset diabetes. Patient informed of watching her diet, healthy lifestyles and follow-up with the primary physician regarding further management. * Telemetry monitoring showing sinus rhythm at 79, with some PVCs and PAC. No other arrhythmia. * Awaiting medical records from [facility] regarding previous admission for similar symptomatology in December 2022. * Neurologically clear for discharge. May follow-up with a neurologist outpati ent.
[2023-03-24] MEDS: GABAPENTIN 300 MG CAP PO SCH (20:04)
[2023-03-24] MEDS: ACETAMINOPHEN TAB 500 MG TAB PO PRN (20:05)
[2023-03-25] MEDS: HEPARIN SODIUM,PORCINE 5,000 UNIT/ML 1 ML VIAL SQ SCH ×3 (00:19→15:03)
[2023-03-25] MEDS: LEVOTHYROXINE 50 MCG TAB PO SCH (06:13)
[2023-03-25] MEDS: PANTOPRAZOLE 40 MG TABLET PO SCH (06:13)
[2023-03-25] MEDS: SODIUM CHLORIDE 0.9% 1,000 ML IV SCH (08:31)
[2023-03-25] MEDS: DULoxetine HCL 60 MG CAPSULE.DR PO SCH (08:32)
[2023-03-25] MEDS: ATORVASTATIN 40 MG TAB PO SCH (08:32)
[2023-03-25] MEDS: GABAPENTIN 300 MG CAP PO SCH (08:32)
[2023-03-25] MEDS: ASPIRIN 325 MG TAB PO SCH (08:32)
[2023-03-25] MEDS: atenoloL 50 MG TAB PO SCH (08:32)
[2023-03-25] MEDS: lisinopriL 10 MG TAB PO SCH (08:32)
[2023-03-25 08:38] VITALS: TEMP 98
[2023-03-25 08:57] LABS: African American GFR (CKD) 67 (>60 ml/min/1.73 sqM); Anion Gap 5 mmol/L; Blood Urea Nitrogen 19 mg/dL (7-17); Calcium 8.9 mg/dL (8.4-10.2); Carbon Dioxide 22 mmol/L (22-30); Chloride 112 mmol/L (98-107); Glucose 92 mg/dL (74-99); Non-African American GFR(CKD) 58 (>60 ml/min/1.73 sqM); Sodium 139 mmol/L (137-145)
--- NOTE | 2023-03-25 08:57 | P.PN ---
Subjective Progress Note Date: 03/24/23 Patient is a 52-year-old female history of past medical history of hypertension, hyperlipidemia, hypothyroidism, fibromyalgia, chronic back pain, anxiety/depression currently everyday smoker was brought to the hospital due to altered mental status. Apparently patients son found her on the floor. Patient was confused and was having slurred speech and unable to express herself. EMS was called by her son and patient was brought to ER. Patient states that she did have prior episode previously after taking Neurontin and was admitted to hospital. Initially patient did not want to come to hospital. Currently more awake and oriented. Denies any focal weakness. No bladder or bowel incontinence. Patient admits smoking marijuana. Denies any hitting her head. No complaints of headache. No numbness or tingling. No complaints of fever or chills. No chest pain or shortness of breath. No headache or dizziness or lightheadedness. Denies any recent illnesses. Chest x-ray showed no acute process. CT head and cervical spine showed no acute osseous abnormalities cervical spine. Follow-up can be performed as clinically indicated. Chronic changes appear similar to [address] angiogram of the head and neck showed no flow-limiting stenosis of bilateral carotid bifurcations. Minimal narrowing less than 50% at the origin of the internal carotid artery when present. Normal [place]. EKG showed sinus rhythm. Laboratory data showed WBC 7.8 hemoglobin 12.4 and platelets 293 MCV 91.2 BUN 16 and creatinine 1.1 and blood sugar 95. Urine Elevated. Troponin x 1 negative. CK 86. Urinalysis showed tricyclic antidepressants and marijuana. 03/24/2023 Patient is resting in the bed. Awake alert and oriented. Denied any difficulty speaking. Slurred speech almost resolved. No complaints of headache. Complains of low back pain but controlled with pain medications. No nausea vomiting. Denied any dysuria or hematuria. No complaints of abdominal pain. EEG showed abnormal EEG due to background slowing of mild degree. This is suggestive of generalized cerebral dysfunction as can be seen with toxic metabolic encephalopathy are related to diffuse structural brain abnormality. Laboratory data showed WBC 7.3 hemoglobin 11.5 and platelets of 63 sodium 141 potassium 4.6 chloride 1. Bicarb is 30 BUN 13 and creatinine 1.0 and blood sugar 106. A1c level was 6.9, LDL 63.5 TSH 0.234 and free T4 1 0.12 Urinalysis showed positive for nitrite no leukocyte esterase RBCs less than 1 and WBC less than 1 Current medications reviewed. Objective - Vital Signs Vital signs: Vital Signs Temp 97.2 F L 03/24/23 08:00 Pulse 71 03/24/23 15:52 Resp 18 03/24/23 15:52 BP 127/76 03/24/23 15:52 Pulse Ox 97 03/24/23 15:52 FiO2 Intake & Output 03/24/23 03/24/23 03/25/23 06:59 18:59 06:59 Intake Total 600 476 Balance 600 476 Intake: Oral 600 476 Other: Voiding Method Toilet # Voids 1 - Exam PHYSICAL EXAMINATION: Patient is lying in the bed,, no acute distress, awake alert and oriented. Drowsy and lethargic.. HEENT: Normocephalic. Neck is supple. Pupils reactive. Nostrils clear. Oral cavity is moist. Neck reveals no JVD, carotid bruits, or thyromegaly. CHEST EXAMINATION: Trachea is central. Symmetrical expansion. Bibasilar diminished sounds. Nonlabored breathing. No wheezing or rhonchi.. CARDIAC: Normal S1, S2 with no gallops. No murmurs ABDOMEN: Soft. Bowel sounds present. Nontender. No organomegaly. No abdominal bruits. Extremities: reveal no edema. No clubbing or cyanosis Neurologically awake, alert, oriented x3 able to move all extremities. No gross focal neurological deficit. Skin: No rash or skin lesions. Psychiatric: Coperative. Nonsuicidal, Musculoskeletal: No joint swelling or deformity. - Labs CBC & Chem 7: 03/24/23 07:22 03/24/23 07:22 Labs: Abnormal Lab Results - Last 24 Hours (Table) 03/23/23 03/24/23 03/24/23 Range/Units 16:19 07:22 09:28 Chloride 108 H (98-107) mmol/L Glucose 106 H (74-99) mg/dL Hemoglobin A1c 6.9 H (<=6.0) % HDL Cholesterol 38.30 L (40.00-60.00) mg/dL Urine Nitrite Positive H (Negative) Urine Bacteria Moderate H (None) /hpf Urine Mucus Rare H (None) /hpf Assessment and Plan Assessment: Altered mental status likely toxic encephalopathy. Patient is on Neurontin and also started taking amitriptyline recently. New onset diabetes with A1c 6.9 Possible urinary tract infection Fibromyalgia Chronic lower back pain Hypertension Hyperlipidemia History of cervical fusion surgery x 2 History of right thyroidectomy Hypertension GERD Hypothyroidism Anxiety/depression Currently everyday smoker GI and DVT prophylaxis Plan: Patient will be continued on IV hydration with normal saline. Did hold Neurontin and amitriptyline initially. Neurontin will be started at lower dose at 600 mg twice daily. Patient will be continued on aspirin and statins. Patient will be started on insulin sliding scale and oral hypoglycemic agents upon discharge. Hold blood pressure medications nifedipine and chlorthalidone. Continue atenolol and lisinopril as per home regimen. Gabapentin levels was ordered. Started on ceftriaxone and follow-up urine culture report. Continue to follow closely. Time with Patient: Greater than 30
[2023-03-25 09:04] LABS: Potassium 5.4 mmol/L (3.5-5.1)
--- NOTE | 2023-03-25 16:25 | P.PN ---
Subjective Progress Note Date: 03/25/23 Patient was seen for a follow-up. Patient states that she is feeling much better. Her speech is back to normal. The myoclonic twitches have resolved. Patient states that she takes gabapentin for nerve damage, as she had issues with her neck and hands. She is on gabapentin 600 mg 3 times daily. We received outside records from [facility]. Patient was admitted on 01/20/2023 for bilateral lower leg numbness and weakness, present for about 3 days. She was having trouble finding words, headache blurred vision on the right eye. Workup performed include: CBC was normal with hemoglobin 11.6. Basic metabolic panel was normal, UA shows positive nitrite negative leukocyte esterase, ESR 34, urine drug screen positive for cannabinoids and tricyclic. Schaffer virus PCR negative lactate normal, troponin negative. CT head revealed no acute intracranial hemorrhage, midline shift or mass effect. Findings in the right thalamus could relate to prominent [place] Silvio space, versus age indeterminate small lacunar infarct. Patient was diagnosed with "lacunar infarction", cystitis, headache. Hepatic panel normal, hemoglobin A1c 6.2 on 07/24/2021, TSH normal. Patient was started on aspirin 81 mg, Lipitor 40 mg, telemetry. Patient started on Rocephin for possible UTI. Patient was seen by neurologist by telemedicine, and her NIH stroke scale was 1. MRI of the brain, MRA of the head were recommended. Lipid panel with cholesterol 148, LDL 76, HDL 65, triglycerides 34. Repeat hemoglobin A1c 5.7 on 01/18/2023. Carotid Doppler revealed no evidence of hemodynamically significant stenosis of bilateral internal carotid arteries. No intraluminal plaque was visualized in bilateral carotid arteries. No hemodynamically significant stenosis. Vertebral arteries were patent with antegrade flow. 2D echo revealed left ventricular systolic function is mildly decreased, with EF 45 to 50%. There is hypokinesis in the anteroseptum wall. Normal left ventricular wall thickness. The left atrial size is normal. The interatrial septum is intact with no evidence of an ASD. Mild to moderate AR, mild MR. MRA of the brain showed no large vessel intracra nial arterial occlusion, significant stenosis or aneurysmal changes seen. Anatomic variation with a dominant right vertebral artery. MRI of the brain performed 01/19/2023 revealed no acute intracranial abnormality seen. Mild to moderate scattered burden of chronic small vessel ischemic disease. Fluid signal within the left petrous apex may relate to fluid within the pneumatized petrous apex. Correlate for any symptoms of potential left-sided petrous apicitis. Moderate chronic ethmoid sinus disease. Objective - Vital Signs Vital signs: Vital Signs Temp 98 F 03/25/23 11:00 Pulse 71 03/25/23 08:00 Resp 18 03/25/23 11:00 BP 116/69 03/25/23 08:00 Pulse Ox 99 03/25/23 11:00 FiO2 Intake & Output 03/24/23 03/25/23 03/25/23 18:59 06:59 18:59 Intake Total 476 358 Balance 476 358 Intake: Oral 476 358 Other: Voiding Method Toilet # Voids 2 - Exam Mental status, speech and language functions are normal. Muscle strength is normal. No ataxia. Myoclonic twitching have resolved. - Labs CBC & Chem 7: 03/24/23 07:22 03/25/23 07:40 Labs: Abnormal Lab Results - Last 24 Hours (Table) 03/25/23 Range/Units 07:40 Potassium 5.4 H (3.5-5.1) mmol/L Chloride 112 H (98-107) mmol/L BUN 19 H (7-17) mg/dL Creatinine 1.09 H (0.52-1.04) mg/dL Assessment and Plan Assessment: * Altered mental status, status post fall, myoclonic twitching of the facial region/slightly of the hands, with associated speech difficulty/stuttering/halted speech, likely due to metabolic encephalopathy. Doubt stroke/TIA. Patient has no lateralizing symptoms. * Diabetes, new onset, with A1c is 6.9. * Hyperlipidemia * Hypertension * Depression * Chronic back pain * History of cervical fusion x 2 Plan: * Patient's metabolic encephalopathy has remarkably improved. Her speech is ba ck to baseline. * Recommend decreasing gabapentin down to 600 mg twice daily (instead of 3 times daily) * Recommended abstinence from marijuana. * EEG was performed, which was abnormal due to background slowing and disorganization of mild degree, suggestive of toxic/metabolic encephalopathy. No epileptiform activity was seen. * CTA head and neck showed no flow-limiting stenosis bilateral carotid bifurcations. Minimal narrowing less than 50% at the origin of the right ICA may be present. Normal [place]. * Await gabapentin level. Patient has dry mouth, but denies taking overdose on amitriptyline, in fact taking lower than recommended amount of 1 tablets ins tead of 2 tablets. * Continue aspirin 325 mg daily. * Ammonia <9, B12 366 borderline, we will start vitamin B12 500 mcg orally daily, folate 12.30, TSH slightly decreased 0.234 with normal free T4 1.12. Internal medicine to address abnormal thyroid functions. * Fasting lipid panel with cholesterol 118, LDL 63, HDL 38, triglycerides 81. Continue Lipitor 40 mg daily. * Hemoglobin A1c 6.9, suggestive of new onset diabetes. Patient informed of watching her diet, healthy lifestyles and follow-up with the primary physician regarding further management. * Telemetry monitoring showing sinus rhythm at 79, with some PVCs and PAC. No other arrhythmia. * Reviewed all medical records from [facility] during admission in December 2022. No signs of an acute stroke. Please refer to the detailed review of records above. . * Neurologically clear for discharge. May follow-up with a neurologist outpatient. We will sign off.
[2023-03-25] MEDS ORDERED: CYANOCOBALAMIN 500 MCG TAB PO SCH (16:30)
[2023-03-25] MEDS: ACETAMINOPHEN TAB 500 MG TAB PO PRN (17:18)
[2023-03-25 17:20] VITALS: BP 133/76; PULSE 64; RESP 16
== END 2023-03-25 17:56 | disposition home health service (06) | DRG 92 ==
LOC: EC 08:31 → 3SCARD 10:45
PROVIDERS: ADMIT Internal Medicine; ATTEND Internal Medicine
DX: G92.8 Other toxic encephalopathy (principal); N39.0 Urinary tract infection, site not specified; R47.01 Aphasia; E11.9 Type 2 diabetes mellitus without complications; E78.5 Hyperlipidemia, unspecified; I10 Essential (primary) hypertension; F32.A Depression, unspecified; G89.29 Other chronic pain; M54.9 Dorsalgia, unspecified; R29.6 Repeated falls; T42.6X5A Adverse effect of other antiepileptic and sedative-hypnotic drugs, initial encounter; M79.7 Fibromyalgia; K21.9 Gastro-esophageal reflux disease without esophagitis; G47.00 Insomnia, unspecified; F41.9 Anxiety disorder, unspecified; J32.2 Chronic ethmoidal sinusitis; G25.3 Myoclonus; F17.200 Nicotine dependence, unspecified, uncomplicated; E89.0 Postprocedural hypothyroidism; Z98.1 Arthrodesis status; Z91.81 History of falling; Z79.899 Other long term (current) drug therapy; Z79.890 Hormone replacement therapy; Z79.82 Long term (current) use of aspirin; Z86.73 Personal history of transient ischemic attack (TIA), and cerebral infarction without residual deficits
CPT/HCPCS: 36415; 70450; 70496; 70498; 71046; 72125; 80048; 80053; 80061; 80171; 80306; 80320; 81001; 82140; 82550; 82607; 82746; 83036; 84439; 84443; 84484; 85025; 85610; 85730; 93005; 95816; 96374; 99291

== ENCOUNTER → 2024-05-19 | Outpatient (CLI) | payer MEDICARE ==
--- NOTE | 2024-05-20 07:30 | MM ---
Reason for Exam: Screening (asymptomatic). Last screening mammogram was performed 12 month(s) ago. Patient History: Menarche at age 15. First Full-Term at age 20. Left ovary removed at age 32. Right ovary removed at age 32. Hysterectomy at age 29. 2019, Bilateral Reduction. Risk Values: Keila 5 year model risk: 1.1%. NCI Lifetime model risk: 6.1%. Tissue Density: There are scattered areas of fibroglandular density. Findings: Analyzed By CAD. There is single benign appearing dystrophic calcification in the left breast. Benign-appearing bilateral lymph nodes are seen. There is increasing heterogeneous calcifications in the middle depth left breast upper outer aspect. Overall Assessment: Incomplete: need additional imaging evaluation, BI-RAD 0 Management: Diagnostic Mammogram of the left breast. Advise spot magnification and 3-D true lateral views left breast. Patient should continue monthly self-breast exams. A clinical breast exam by your physician is recommended on an annual basis. This exam should not preclude additional follow-up of suspicious palpable abnormalities. Note on Keila scores and lifetime risk: 1. A Keila score greater than 3% is considered moderate risk. If this is the case, consider specialist referral to assess eligibility for a risk reducing agent. 2. If overall lifetime risk for the development of breast cancer is 20% or higher, the patient may qualify for future screening with alternating mammogram and breast MRI. [facility], , 05/20/2024 7:26 AM. Electronically signed and approved by: Jaren Cordero M.D.
--- NOTE | 2024-05-20 10:18 | BD ---
EXAMINATION TYPE: Axial Bone Density DATE OF EXAM: 05/19/2024 CLINICAL HISTORY: 54 years old Female. ICD-10 CODE: Z78.0 ASYMPTOMATIC MENOPAUSAL , Additional Hist ory: Height: 63 Weight: 177 FRAX RISK QUESTIONS: Alcohol (3 or more units per day): no Family History (Parent hip fracture): no Glucocorticoids (More than 3mos): no (Ex: prednisone, prednisolone, methylprednisolone, dexamethasone, and hydrocortisone). History of Fracture in Adulthood: wrist, rib, ankle Secondary Osteoporosis: 1. Type 1 Diabetes: no 2. Hyperthyroidism: yes, rt lobe removed 3. Menopause before 45: yes 4. Malnutrition: no 5. Chronic liver disease: no Rheumatoid Arthritis: no Current Tobacco Use: yes RISK FACTORS HISTORY OF: Hip Fracture (Right/Left): no Spine Fracture: no History of Wrist Fracture: Lt When: age 17 Surgery to Spine/Hip(right/left)/Wrist (right/left): no lumbar surgery When: MEDICATIONS: Thyroid Medications: levothyroxine How Long: since 2015 Osteoporosis Medications: no EXAM MEASUREMENTS: Bone mineral densitometry was performed using the [employer] System. Bone mineral density as measured about the Lumbar spine is: ----- L1-L4(G/cm2): 0.974 T Score Values are as follows: ----- L1: -2.3 ----- L2: -1.8 ----- L3: -1.1 ----- L4: -1.9 ----- L1-L4: -1.7 Z Score Values are as follows: ----- L1: -2.6 ----- L2: -2.2 ----- L3: -1.5 ----- L4: -2.3 ----- L1-L4: -2.1 Baseline Study Bone mineral density about the R hip (g/cm2): 0.734 Bone mineral density about the L hip (g/cm2): 0.796 T Score values are as follows: -----R Neck: -2.3 -----L Neck: -1.5 -----R Total: -2.2 -----L Total: -1.7 Z Score values are as follows: -----R Neck: -2.5 -----L Neck: -1.7 -----R Total: -2.9 -----L Total: -2.4 Baseline Study FRAX%s: The graph provided illustrates a 7.2% chance for a major osteoporotic fx and a 1.9% chance fo r the hips probability for fx in 10 years time. IMPRESSION: Osteopenia (T Score between -2.5 and -1). There is slightly increased risk of fracture and the patient may be considered for treatment. Re-Screen 2-5 years. NOTE: T-SCORE=SD OF THE YOUNG ADULT MEAN. [facility], , 05/20/2024 10:16 AM
== END | disposition home or self-care (01) ==
LOC: RADMAMWWP 15:14
PROVIDERS: ATTEND Family Medicine
DX: Z12.31 Encounter for screening mammogram for malignant neoplasm of breast (principal); R92.323 Mammographic fibroglandular density, bilateral breasts; M81.0 Age-related osteoporosis without current pathological fracture; M85.89 Other specified disorders of bone density and structure, multiple sites; Z78.0 Asymptomatic menopausal state
CPT/HCPCS: 77063; 77067; 77080

== ENCOUNTER → 2024-05-25 | Outpatient (CLI) | payer MEDICARE ==
--- NOTE | 2024-05-25 07:53 | CTL ---
EXAMINATION TYPE: CT Low Dose Lung DATE OF EXAM ORDERED: 05/25/2024 COMPARISON: Chest radiograph 03/23/2023, CT chest 09/04/2010 CLINICAL INDICATION: Female, 54 years old with history of Z12.2 ENCNTR SCREEN FOR MALIGNANT NEOPLASM OF RESP; PHH, current smoker 1 ppd x27 years, Lung cancer screening, History of Smoking/tobacco use. TECHNIQUE: Low dose computed tomography scan was performed through the chest at 1 mm thick sections a nd reconstructed images in multiple planes at 1 mm and [address] DLP: 121.[address] CTDI: 3.4 mGy Automated exposure control for dose reduction was used. CT DIAGNOSTIC QUALITY: Satisfactory FINDINGS: Nodules: Stable right lower lobe 3.3 mm pulmonary nodule dating back to 2010 exam and considered benign (serie s 6, image 34). Development of right lower lobe 3.6 mm pulmonary nodule from 2011 (series 6, image 36 ). LUNGS: COPD: Severity: None Fibrosis: Severity: None Lymph nodes: None Other findings: None RIGHT PLEURAL SPACE: Effusion: None Calcification: None Thickening: None Pneumothorax: None LEFT PLEURAL SPACE: Effusion: None Calcification: None Thickening: None Pneumothorax: None HEART: Heart Size: Normal Coronary Calcification: None Pericardial Effusion: None OTHER FINDINGS: Upper abdomen: Tiny hiatal hernia. Gallbladder is surgically absent. Bony thorax: Anterior cervical fusion hardware. Supraclavicular region: Prominent left thyroid gland and isthmus. Other: None IMPRESSION: Couple of right lower lobe pulmonary nodules measuring less than [address] LUNG RAD AND CT CHEST RECOMMENDATION: Lung-Rad 2 Benign Appearance or Behavior: Continue annual sc reening with LDCT in 12 months. S Modifier (other clinically significant findings): None [facility], , 05/25/2024 7:50 AM
--- NOTE | 2024-05-25 09:26 | MM ---
Reason for Exam: Clinical finding. Last screening mammogram was performed less than 1 month ago. Patient History: Menarche at age 15. First Full-Term at age 20. Left ovary removed at age 32. Right ovary removed at age 32. Hysterectomy at age 29. 2019, Bilateral Reduction. Risk Values: Keila 5 year model risk: 1.1%. NCI Lifetime model risk: 6.1%. Prior Study Comparison: 05/08/2023 Bilateral MG 3D screening mammo w/cad, [facility]. 05/19/2024 Bilateral MG 3D screening mammo w/cad, [facility]. Tissue Density: Left: There are scattered areas of fibroglandular density. Findings: Analyzed By CAD. There are indeterminate calcifications in the left upper, outer position. Overall Assessment: Suspicious, BI-RAD 4 Management: Stereotactic Core Biopsy of the left breast. Electronically signed and approved by: Natan Carrero M.D. Radiologis
== END | disposition home or self-care (01) ==
LOC: RADCTMAIN 06:39
PROVIDERS: ATTEND Family Medicine
DX: Z12.2 Encounter for screening for malignant neoplasm of respiratory organs (principal); R92.8 Other abnormal and inconclusive findings on diagnostic imaging of breast; F17.210 Nicotine dependence, cigarettes, uncomplicated; R92.322 Mammographic fibroglandular density, left breast; R91.1 Solitary pulmonary nodule
CPT/HCPCS: 71271; 77061; 77065

== ENCOUNTER → 2024-06-09 | Day surgery (SDC) | payer MEDICARE ==
[2024-06-09] MEDS: ALPRAZolam 0.5 MG TAB PO PRN (10:17)
[2024-06-09 11:27] VITALS: BP 130/84; PULSE 93; RESP 14; TEMP 98.1
--- NOTE | 2024-06-14 10:20 | MM ---
Risk Values: Keila 5 year model risk: 1.1%. NCI Lifetime model risk: 6.1%. Prior Study Comparison: 05/08/2023 Bilateral MG 3D screening mammo w/cad, [facility]. 05/19/2024 Bilateral MG 3D screening mammo w/cad, [facility]. 05/25/2024 Left MG 3D work up w/cad , [facility]. Pathology Description: Location: 2 o'clock, middle. Marker Left Behind. Specimen Radiograph. Calcium Found: Yes Approach: Lateral to Medial Needle Type: Eviva Cores: 8 Skin Nicks: 1 Gauge: 9 The procedure of stereotactic guided core biopsy was explained to the patient. Benefits, alternatives, and risks were discussed. An informed consent was then obtained. The [facility] pathway for biopsy was chosen. Shortness pathway was a lateral approach. A vacuum assisted biopsy gun was used to obtain 6 core samples of the targeted microcalcifications. We noted some oily material when removing the samples. The patient tolerated the procedure well without any immediate complication. The patient was kept in the radiology department for short stay after the procedure and then discharged home in stable condition. Targeted calcifications are identified in specimen mammogram. Patient was taken to a dedicated mammography suite for post procedure clip placement verification. Post biopsy mammogram shows the clip at the 2:00 site of targeted left breast microcalcifications. Impression: SUCCESSFUL, UNCOMPLICATED STEREOTACTIC GUIDED CORE BIOPSY OF AREA OF 2:00 LEFT BREAST MICROCALCIFICATIONS, FAVORED ORAL CYST/FAT NECROSIS. Pathology Results: Result: Benign, Fat necrosis. Pathology and radiology were reviewed. Findings are concordant. LEFT BREAST, NEEDLE CORE BIOPSY: Fat necrosis/scar with calcifications. Negative for malignancy. Overall Assessment: Benign Management: Diagnostic Mammogram of the left breast in 6 months. Electronically signed and approved by: Rachelle Wyatt M.D. Radiologist
== END ==
LOC: RADMAMWWP 09:59
PROVIDERS: ATTEND Family Medicine
DX: L90.5 Scar conditions and fibrosis of skin (principal); R92.8 Other abnormal and inconclusive findings on diagnostic imaging of breast
CPT/HCPCS: 88305; 19081; A4648; J2003

== ENCOUNTER → 2024-08-19 | Outpatient (CLI) | payer MEDICARE ==
--- NOTE | 2024-08-19 17:55 | XR ---
EXAMINATION TYPE: XR cervical spine limited DATE OF EXAM: 08/19/2024 CLINICAL HISTORY: pain TECHNIQUE: 3 views of the cervical spine are submitted. COMPARISON: None. FINDINGS: There is satisfactory in alignment without evidence of acute fracture or dislocation. The pre-vertebral soft tissue appears within normal limits. Postoperative changes at C5, C6 and C7 ACDF. Anterior fixation plate and screws in place. The C1-C2 articulation is unremarkable on the open mout h view. IMPRESSION: No acute fracture or dislocation is seen in the cervical spine. [facility], , 08/19/2024 5:53 PM
== END | disposition home or self-care (01) ==
LOC: RADXRMAIN 15:55
PROVIDERS: ATTEND Family Medicine
DX: M54.2 Cervicalgia (principal); Z98.890 Other specified postprocedural states
CPT/HCPCS: 72040

== ENCOUNTER 2024-09-22 12:15 | Observation (INO) | payer MEDICARE ==
--- NOTE | 2024-09-22 13:03 | ED ---
General Adult HPI - General Chief complaint: Chest Pain Stated complaint: Chest Pain Time Seen by Provider: 09/22/24 12:20 Source: patient, RN notes reviewed, old records reviewed Mode of arrival: ambulatory Limitations: no limitations - History of Present Illness Initial comments: This is a 54-year-old female who presents to the emergency department co mplaining of chest pain that radiates to her left side and into her back. Patient states she has had this before. Patient states she also has had a heart attack before and is on cholesterol meds. Patient also states she smokes. Patient states she has had the pain for 3 days and its continuous. Patient denies any fever chills or cough. Patient denies any abdominal pain patient has nausea vomiting diarrhea - Related Data Home Medications Medication Instructions Recorded Confirmed DULoxetine HCL [Cymbalta] 60 mg PO BID 05/09/17 09/22/24 Atorvastatin [Lipitor] 40 mg PO DAILY 02/11/22 09/22/24 Levothyroxine Sodium [Synthroid] 50 mcg PO DAILY 03/23/23 09/22/24 Nitroglycerin Sl Tabs [Nitrostat] 0.4 mg SL Q5M PRN 03/23/23 09/22/24 Pantoprazole [Protonix] 40 mg PO DAILY 05/26/24 09/22/24 Albuterol Sulfate/Budesonide 2 puff INHALATION RT-Q4H PRN 09/22/24 09/22/24 [Airsupra 90-80 Mcg Inhaler] Atenolol/Chlorthalidone 1 tab PO DAILY 09/22/24 09/22/24 [Atenolol/Chlorthalidone 50-25] Fexofenadine HCl [Codi Allergy] 180 mg PO DAILY 09/22/24 09/22/24 Gabapentin 800 mg PO TID 09/22/24 09/22/24 Lumateperone Tosylate [Caplyta] 10.5 mg PO HS 09/22/24 09/22/24 Montelukast [Singulair] 10 mg PO DAILY 09/22/24 09/22/24 Allergies Allergy/AdvReac Type Severity Reaction Status Date / Time Fish Containing Products Allergy Itching Verified 09/22/24 14:41 milk Allergy Itching Verified 09/22/24 14:41 Review of Systems ROS Statement: Those systems with pertinent positive or pertinent negative responses have been documented in the HPI. ROS Other: All systems not noted in ROS Statement are negative. Past Medical History Past Medical History: Fibromyalgia, GERD/Reflux, Hyperlipidemia, Hypertension, Thyroid Disorder Additional Past Medical History / Comment(s): depression, chronic back pain, thyroid nodule. GALLBLADDER DISORDER History of Any Multi-Drug Resistant Organisms: None Reported Past Surgical History: Back Surgery, Section, Hysterectomy, Tonsillectomy Additional Past Surgical History / Comment(s): CERVICAL FUSION X2. RT THYROIDECTOMY. COLONOSCOPY/EGD. Bilat breast reduction 2019, abdominoplasty 2013 Past Anesthesia/Blood Transfusion Reactions: No Reported Reaction Past Psychological History: Anxiety Smoking Status: Current every day smoker Past Alcohol Use History: None Reported Past Drug Use History: Marijuana - Past Family History Mother Family Medical History: Cancer Additional Family Medical History / Comment(s): LUNG General Exam - General Exam Comments Initial Comments: GENERAL: Patient is well-developed and well-nourished. Patient is nontoxic and well- hydrated and is in mild distress. ENT: Neck is soft and supple. No significant lymphadenopathy is noted. Oropharynx is clear. Moist mucous membranes. Neck has full range of motion without eliciting any pain. EYES: The sclera were anicteric and conjunctiva were pink and moist. Extraocular movements were intact and pupils were equal round and reactive to light. Eyelids were unremarkable. PULMONARY: Unlabored respirations. Good breath sounds bilaterally. No audible rales rhonchi or wheezing was noted. CARDIOVASCULAR: There is a regular rate and rhythm without any murmurs gallops or rubs. Femoral pulses are equal bilaterally ABDOMEN: Soft and nontender with normal bowel sounds. No palpable organomegaly was noted. There is no palpable pulsatile mass. SKIN: Skin is clear with no lesions or rashes and otherwise unremarkable. NEUROLOGIC: Patient is alert and oriented x3. Cranial nerves II through XII are grossly intact. Motor and sensory are also intact. Normal speech, volume and content. Symmetrical smile. MUSCULOSKELETAL: Normal extremities with adequate strength and full range of motion. No lower extremity swelling or edema. No calf tenderness. LYMPHATICS: No significant lymphadenopathy is noted PSYCHIATRIC: Normal psychiatric evaluation. Limitations: no limitations Course Vital Signs 09/22/24 09/22/24 09/22/24 12:20 13:20 14:00 Temperature 97.9 F Pulse Rate 77 69 67 Respiratory 18 16 18 Rate Blood Pressure 121/76 137/57 127/71 O2 Sat by Pulse 99 99 99 Oximetry Medical Decision Making - Medical Decision Making EKG is interpreted by myself. EKG shows sinus rhythm at 70 bpm ID is [id number] QRS of 91 QT interval is 395 QTc is 415. Patient's EKG shows no ST segment elevation. Was pt. sent in by a medical professional or institution (, JOSE, GRID INSPECTOR, urgent care, hospital, or jail...) When possible be specific @ -No Did you speak to anyone other than the patient for history (EMS, parent, family, police, friend...)? What history was obtained from this source @ -No Did you review nursing and triage notes (agree or disagree)? Why? @ -I reviewed and agree with nursing and triage notes Were old charts reviewed (outside hosp., previous admission, EMS record, old EKG, old radiological studies, urgent care reports/EKG's, jail records)? Report findings @ -No old charts were reviewed Differential Diagnosis? @ -Differential Chest Pain: Stable Angina, Unstable Angina, STEMI, NSTEMI Aortic Dissection, Pneumothorax, Musculoskeletal, Esophageal Spasm GERD, Cholecystitis, Pancreatitis, Zoster, this is not meant to be an all-inclusive list. EKG interpreted by me (3pts min.). @ -As above X-rays interpreted by me (1pt min.). @ -Shows no acute abnormality CT interpreted by me (1pt min.). @ -None done U/S interpreted by me (1pt. min.). @ -None done What testing was considered but not performed or refused? (CT, X-rays, U/S, labs)? Why? @ -None What meds were considered but not given or refused? Why? @ -None Did you discuss the management of the patient with other professionals (professionals i.e. JOSE Romero, GRID INSPECTOR, lab, RT, psych nurse, social contact worker, ophthalmic surgical assistant, teacher, fiscal officer, caser in)? Give summary @ -I spoke with Dr. Elizalde he agreed to admit the patient Was smoking cessation discussed for >3mins.? @ -No Was critical care preformed (if so, how long)? @ -No Were there social determinants of health that impacted care today? How? (Homelessness, low income, unemployed, alcoholism, drug addiction, transportation, low edu. Level, literacy, decrease access to med. care, halfway, rehab)? @ -No Was there de-escalation of care discussed even if they declined (Discuss DNR or withdrawal of care, Hospice)? DNR status @ -No What co-morbidities impacted this encounter? (DM, HTN, Smoking, COPD, CAD, Cancer, CVA, ARF, Chemo, Hep., AIDS, mental health diagnosis, sleep apnea, morbid obesity)? @ -None Was patient admitted / discharged? Hospital course, mention meds given and route, prescriptions, significant lab abnormalities, going to OR and other pertinent info. @ -Patient's chest pain was improved however it still remains slight. Patient's lab work came back within normal range. Patient's chest x-ray showed no acute abnormality. Patient will be admitted to Dr. Elizalde with a cardiology consult Undiagnosed new problem with uncertain prognosis? @ -No Drug Therapy requiring intensive monitoring for toxicity (Heparin, Nitro, Insulin, Cardizem)? @ -No Were any procedures done? @ -No Diagnosis/symptom? @ -Chest pain Acute, or Chronic, or Acute on Chronic? @ -Acute Uncomplicated (without systemic symptoms) or Complicated (systemic symptoms)? @ -Complicated Side effects of treatment? @ -No Exacerbation, Progression, or Severe Exacerbation? @ -No Poses a threat to life or bodily function? How? (Chest pain, USA, MT, pneumonia, PE, COPD, DKA, ARF, appy, cholecystitis, CVA, Diverticulitis, Homicidal, Suicidal, threat to staff... and all critical care pts) @ -Yes this could lead to an MT and endorgan dysfunction - Lab Data Result diagrams: 09/22/24 13:11 09/22/24 13:11 Lab Results 09/22/24 09/22/24 09/22/24 Range/Units 13:11 13:11 13:11 WBC 13.38 H (4.50-10.00) 10*3/uL RBC 4.25 (4.10-5.20) 10*6/uL Hgb 12.1 (12.0-15.0) g/dL Hct 37.3 (37.2-46.3) % MCV 87.8 (80.0-97.0) fL MCH 28.5 (27.0-32.0) pg MCHC 32.4 (32.0-37.0) g/dL Plt Count 503 H (140-440) 10*3/uL MPV 8.7 L (9.5-12.2) fL Immature Gran % (Auto) 0.2 % Neutrophils % 59.0 % Lymphocytes % 30.9 % Monocytes % 5.6 % Eosinophils % 3.7 % Basophils % 0.6 % Immature Gran # 0.03 (0.00-0.04) 10*3/uL Neutrophils # 7.89 H (1.80-7.70) 10*3/uL Lymphocytes # 4.14 (0.90-5.00) 10*3/uL Monocytes # 0.75 (0.20-1.00) 10*3/uL Eosinophils # 0.49 H (0.04-0.35) 10*3/uL Basophils # 0.08 (0.00-0.10) 10*3/uL PT 10.3 (10.0-12.5) sec INR 0.9 (<1.2) APTT 23.1 (22.0-30.0) sec Sodium 139 (137-145) mmol/L Potassium 4.3 (3.5-5.1) mmol/L Chloride 102 (98-107) mmol/L Carbon Dioxide 28 (22-30) mmol/L Anion Gap 9 mmol/L BUN 16 (7-17) mg/dL Creatinine 1.00 (0.52-1.04) mg/dL Est GFR (CKD-EPI)AfAm 74 (>60 ml/min/1.73 sqM) Est GFR (CKD-EPI)NonAf 64 (>60 ml/min/1.73 sqM) Glucose 94 (74-99) mg/dL Calcium 9.8 (8.4-10.2) mg/dL Magnesium 2.1 (1.6-2.3) mg/dL Total Bilirubin 0.7 (0.2-1.3) mg/dL AST 28 (14-36) U/L ALT 20 (4-34) U/L Alkaline Phosphatase 125 (38-126) U/L Troponin I (0.000-0.034) ng/mL Total Protein 7.9 (6.3-8.2) g/dL Albumin 4.4 (3.5-5.0) g/dL // Range/Units 13:11 WBC (4.50-10.00) 10*3/uL RBC (4.10-5.20) 10*6/uL Hgb (12.0-15.0) g/dL Hct (37.2-46.3) % MCV (80.0-97.0) fL MCH (27.0-32.0) pg MCHC (32.0-37.0) g/dL Plt Count (140-440) 10*3/uL MPV (9.5-12.2) fL Immature Gran % (Auto) % Neutrophils % % Lymphocytes % % Monocytes % % Eosinophils % % Basophils % % Immature Gran # (0.00-0.04) 10*3/uL Neutrophils # (1.80-7.70) 10*3/uL Lymphocytes # (0.90-5.00) 10*3/uL Monocytes # (0.20-1.00) 10*3/uL Eosinophils # (0.04-0.35) 10*3/uL Basophils # (0.00-0.10) 10*3/uL PT (10.0-12.5) sec INR (<1.2) APTT (22.0-30.0) sec Sodium (137-145) mmol/L Potassium (3.5-5.1) mmol/L Chloride (98-107) mmol/L Carbon Dioxide (22-30) mmol/L Anion Gap mmol/L BUN (7-17) mg/dL Creatinine (0.52-1.04) mg/dL Est GFR (CKD-EPI)AfAm (>60 ml/min/1.73 sqM) Est GFR (CKD-EPI)NonAf (>60 ml/min/1.73 sqM) Glucose (74-99) mg/dL Calcium (8.4-10.2) mg/dL Magnesium (1.6-2.3) mg/dL Total Bilirubin (0.2-1.3) mg/dL AST (14-36) U/L ALT (4-34) U/L Alkaline Phosphatase (38-126) U/L Troponin I <0.012 (0.000-0.034) ng/mL Total Protein (6.3-8.2) g/dL Albumin (3.5-5.0) g/dL Disposition Clinical Impression: Chest pain Disposition: ADMITTED IP TO THIS HOSP Referrals: Natan Elizalde MD [Primary Care Provider] - 1-2 days Time of Disposition: 15:20
[2024-09-22] MEDS: ASPIRIN 81 MG PO STA (13:21)
[2024-09-22] MEDS: NITROGLYCERIN OINT 1 INCH/GM PACKET TOPICAL STA (13:23)
[2024-09-22 13:34] LABS: Basophils # (A) 0.08 10*3/uL (0.00-0.10); Basophils % (A) 0.6 %; Eosinophils # (A) 0.49 10*3/uL (0.04-0.35); Eosinophils % (A) 3.7 %; HCT 37.3 % (37.2-46.3); HGB 12.1 g/dL (12.0-15.0); Lymphocytes # (A) 4.14 10*3/uL (0.90-5.00); Lymphocytes % (A) 30.9 %; MCH 28.5 pg (27.0-32.0); MCHC 32.4 g/dL (32.0-37.0); MCV 87.8 fL (80.0-97.0); Monocytes # (A) 0.75 10*3/uL (0.20-1.00); Monocytes % (A) 5.6 %; Neutrophils # (A) 7.89 10*3/uL (1.80-7.70); Neutrophils % (A) 59.0 %; Platelet Count 503 10*3/uL (140-440); RBC 4.25 10*6/uL (4.10-5.20); RDW 16.0 % (11.5-14.5); WBC 13.38 10*3/uL (4.50-10.00)
[2024-09-22 13:54] LABS: INR 0.9 (<1.2); Partial Thromboplastin Time 23.1 sec (22.0-30.0); Prothrombin Time 10.3 sec (10.0-12.5)
[2024-09-22 13:55] LABS: ALT 20 U/L (4-34); AST 28 U/L (14-36); African American GFR (CKD) 74 (>60 ml/min/1.73 sqM); Albumin 4.4 g/dL (3.5-5.0); Alkaline Phosphatase 125 U/L (38-126); Anion Gap 9 mmol/L; Blood Urea Nitrogen 16 mg/dL (7-17); Calcium 9.8 mg/dL (8.4-10.2); Carbon Dioxide 28 mmol/L (22-30); Chloride 102 mmol/L (98-107); Glucose 94 mg/dL (74-99); Magnesium 2.1 mg/dL (1.6-2.3); Non-African American GFR(CKD) 64 (>60 ml/min/1.73 sqM); Potassium 4.3 mmol/L (3.5-5.1); Sodium 139 mmol/L (137-145); Total Protein 7.9 g/dL (6.3-8.2)
--- NOTE | 2024-09-22 14:48 | XR ---
EXAMINATION TYPE: XR chest 2V DATE OF EXAM: 09/22/2024 1:44 PM COMPARISON: 03/23/2023 CLINICAL INDICATION: Female, 54 years old with history of Chest Pain, , TECHNIQUE: AP and lateral views FINDINGS: The cardiomediastinal silhouette, aorta, and pulmonary vasculature are within normal limits. Lungs an d pleural spaces are clear. IMPRESSION: No acute cardiopulmonary process. [facility], Workstation: [id number], 09/22/2024 2:46 PM
[2024-09-22] MEDS ORDERED: NITROGLYCERIN SL TABS 0.4 MG TAB SUBLINGUAL PRN (15:20)
[2024-09-22] MEDS ORDERED: ALBUTEROL NEBULIZED 2.5 MG/3 ML INHALATION PRN (15:21)
[2024-09-22] MEDS: GABAPENTIN 400 MG CAP PO SCH (15:47)
[2024-09-22] MEDS: NITROGLYCERIN OINT 1 INCH/GM PACKET TOPICAL SCH (17:20)
[2024-09-22] MEDS: MORPHINE SULFATE 2 MG/ML SYRINGE IVP PRN (18:03)
[2024-09-22] MEDS: methylPREDNISolone SOD SUCCI 40 MG/ML 1 ML VIAL IV SCH (20:01)
[2024-09-22] MEDS: CAPLYTA PO SCH (20:02)
[2024-09-22] MEDS: DULoxetine HCL 60 MG CAPSULE.DR PO SCH (20:02)
[2024-09-22 20:24] LABS: Glucose,Whole Blood 152 mg/dL (70-110)
[2024-09-22 20:47] LABS: HCT 37.4 % (37.2-46.3); HGB 12.5 g/dL (12.0-15.0); MCH 29.5 pg (27.0-32.0); MCHC 33.4 g/dL (32.0-37.0); MCV 88.2 fL (80.0-97.0); Platelet Count 496 10*3/uL (140-440); RBC 4.24 10*6/uL (4.10-5.20); RDW 15.8 % (11.5-14.5); WBC 16.00 10*3/uL (4.50-10.00)
--- NOTE | 2024-09-22 20:48 | CT ---
EXAMINATION TYPE: CT chest wo con DATE OF EXAM: 09/22/2024 8:15 PM COMPARISON: CT chest study dated 05/25/2024. CLINICAL INDICATION: Female, 54 years old with history of chest pain; PHH, c/o of chest pain x that r adiates to her back x 2 days. Pt states she has a hx of this due to herniated discs in her neck. TECHNIQUE: Multiple axial images were obtained through the chest. Sagittal and coronal reformats were created for review. MIP was performed on a separate workstation. CT DLP: 365.9 mGycm, Automated exposure control for dose reduction was used. FINDINGS: LUNGS/ PLEURA: The lung parenchyma appears acutely unremarkable. No new suspicious or enlarging pulm onary nodule. AIRWAY: Patent and unremarkable. HEART: Size within normal limits. MEDIASTINUM: No gross evidence of adenopathy. VASCULATURE: No aortic aneurysm. MUSCULOSKELETAL: No acute osseous abnormalities. Partially visualized anterior cervical spinal fusion hardware. SOFT TISSUES/LYMPH NODES: Unremarkable. LOWER NECK: No significant findings. UPPER ABDOMEN: No significant acute findings. Previous cholecystectomy. IMPRESSION: No acute abnormality in the chest. [facility], , 09/22/2024 8:46 PM
--- NOTE | 2024-09-22 20:51 | XR ---
EXAMINATION TYPE: XR chest 1V portable DATE OF EXAM: 09/22/2024 8:38 PM COMPARISON: Prior chest radiograph 04/25/2024. CLINICAL INDICATION: Female, 54 years old with history of shortness of breath; [facility] TECHNIQUE: XR chest 1V portable Frontal view of the chest. FINDINGS: Lungs/Pleura: There is no evidence of pleural effusion, focal consolidation, or pneumothorax. Pulmonary vascularity: Unremarkable. Heart/mediastinum: Cardiomediastinal silhouette is unremarkable. Musculoskeletal: No acute osseous pathology. Other findings: None Lines/Tubes: IMPRESSION: No acute cardiopulmonary disease/process. [facility], , 09/22/2024 8:49 PM
[2024-09-22 20:58] LABS: ALT 18 U/L (4-34); AST 28 U/L (14-36); African American GFR (CKD) 63 (>60 ml/min/1.73 sqM); Albumin 3.8 g/dL (3.5-5.0); Alkaline Phosphatase 110 U/L (38-126); Anion Gap 13 mmol/L; Blood Urea Nitrogen 17 mg/dL (7-17); Calcium 9.5 mg/dL (8.4-10.2); Carbon Dioxide 21 mmol/L (22-30); Chloride 103 mmol/L (98-107); Glucose 174 mg/dL (74-99); Non-African American GFR(CKD) 55 (>60 ml/min/1.73 sqM); Potassium 4.0 mmol/L (3.5-5.1); Sodium 137 mmol/L (137-145); Total Protein 7.2 g/dL (6.3-8.2)
[2024-09-22 21:15] LABS: Eosinophils # (M) 0.80 k/uL (0-0.7); Lymphocytes # (M) 9.92 k/uL (1.0-4.8); Monocytes # (M) 0.96 k/uL (0-1.0); Neutrophils # (M) 4.32 k/uL (1.3-7.7); Neutrophils % (M) 27 %; Total Cells Counted 100
[2024-09-22] MEDS: ALBUTEROL NEBULIZED 2.5 MG/3 ML INHALATION SCH (21:18)
[2024-09-22] MEDS: BUDESONIDE 0.5 MG/2 ML NEBU INHALATION SCH (21:18)
[2024-09-22] MEDS: hydrALAZINE HCL 20 MG/ML 1 ML VIAL IVP PRN (23:08)
[2024-09-22] MEDS: hydrOXYzine HCL 25 MG TAB PO PRN (23:08)
[2024-09-23] MEDS: SODIUM CHLORIDE 0.9% 500 ML 500 ML IV STA (04:09)
[2024-09-23] MEDS: LEVOTHYROXINE 50 MCG TAB PO SCH (06:16)
[2024-09-23] MEDS: PANTOPRAZOLE 40 MG TABLET PO SCH (07:42)
[2024-09-23] MEDS: ATORVASTATIN 40 MG TAB PO SCH (07:42)
[2024-09-23] MEDS: ASPIRIN 325 MG TAB PO SCH (07:42)
[2024-09-23] MEDS: MONTELUKAST 10 MG TAB PO SCH (07:42)
[2024-09-23] MEDS: LORATADINE 10 MG TAB PO SCH (07:42)
[2024-09-23] MEDS: CHLORTHALIDONE 25 MG TAB PO SCH (10:19)
--- NOTE | 2024-09-23 10:22 | P.CRDCN ---
History of Present Illness History of present illness: HISTORY OF PRESENT ILLNESS: This is a 54-year-old female with a past medical history significant for hypertension, hyperlipidemia, hypothyroidism, anxiety, nicotine dependence, and obesity. Patient used to follow-up in the office with Dr. Hawthorne but has not been seen since August 2021. We have been asked to see the patient in consultation for chest pain. Patient examined at the bedside. Patient states she has been having some chest discomfort recently. She states the pain is usually when she is doing activities like vacuuming. However she states this time she was not doing anything when the pain started. She states the pain starts right in the middle of her chest near her sternum and radiates into her back and shoulder blades. She states usually she will rest and take Tylenol which will help the pain but yesterday it did not. She does report the pain is worse with chest wall palpation. She also reports that the pain is worse with deep inspiration and also with movements of her upper extremities. DIAGNOSTICS: - EKG reveals sinus mechanism with no signs of acute ischemia. - Chest xray negative for acute process. - Chest CT negative for acute abnormality in the chest - Laboratory data: WBC 16.0. Hemoglobin 12.5. Platelet count 496. D-dimer 0.81. Sodium 137. Potassium 4.0. BUN 17. Creatinine 1.14. - Current home cardiac medications include atenolol/chlorthalidone 50-25mg daily, Lipitor 40 mg daily - No previous echocardiogram available in EMR for review - Cardiac catheterization history: June 2021 at [facility] revealing mild to moderate nonobstructive disease involving the diagonal branch. Chest pain and elevated troponin may be secondary to plaque rupture. Medical management was recommended. REVIEW OF SYSTEMS: At the time of my exam: CONSTITUTIONAL: Denies fever or chills. HEENT: Denies blurred vision, vision changes, or eye pain. Denies hemoptysis CARDIOVASCULAR: Denies chest pain. Denies orthopnea. Denies PND. Denies palpi tations RESPIRATORY: Denies shortness of breath. GASTROINTESTINAL: Denies abdominal pain. Denies nausea or vomiting. HEMATOLOGIC: Denies bleeding disorders. GENITOURINARY: Denies any blood in urine. SKIN: Denies pruitis. Denies rash. PHYSICAL EXAM: VITAL SIGNS: Reviewed. GENERAL: Well-developed in no acute distress. HEENT: Head is normocephalic. Pupils are equal, round. Sclerae anicteric. Mucous membranes of the mouth are moist. Neck supple. No JVD or thyromegaly LUNGS: Respirations even and unlabored. Lungs essentially clear to auscultation bilaterally. HEART: Regular rate and rhythm. S1 and S2 heard. ABDOMEN: Soft. Nondistended. Nontender. EXTREMITIES: Normal range of motion. No clubbing or cyanosis. Peripheral pulses intact. No lower extremity edema NEUROLOGIC: Awake and alert. Oriented x 3. 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 Hawthorne Nurse practitioner note has been reviewed by physician. Signing provider agrees with the documented findings, assessment, and plan of care documented by TUMBLER PLATER as a scribe. Past Medical History Past Medical History: Fibromyalgia, GERD/Reflux, Hyperlipidemia, Hypertension, Thyroid Disorder Additional Past Medical History / Comment(s): depression, chronic back pain, thyroid nodule. GALLBLADDER DISORDER History of Any Multi-Drug Resistant Organisms: None Reported Past Surgical History: Back Surgery, Section, Hysterectomy, Tonsillectomy Additional Past Surgical History / Comment(s): CERVICAL FUSION X2. RT THYROIDECTOMY. COLONOSCOPY/EGD. Bilat breast reduction 2019, abdominoplasty 2013 Past Anesthesia/Blood Transfusion Reactions: No Reported Reaction Past Psychological History: Anxiety Smoking Status: Current every day smoker Past Alcohol Use History: None Reported Additional Past Alcohol Use History / Comment(s): SMOKES 1/2 PPD SINCE AGE 27 Past Drug Use History: Marijuana Additional Drug Use History / Comment(s): USES MARIJUANA EDIBLES - Past Family History Mother Family Medical History: Cancer Additional Family Medical History / Comment(s): LUNG Medications and Allergies Home Medications Medication Instructions Recorded Confirmed Type DULoxetine HCL [Cymbalta] 60 mg PO BID 05/09/17 09/22/24 History Atorvastatin [Lipitor] 40 mg PO DAILY 02/11/22 09/22/24 History Levothyroxine Sodium [Synthroid] 50 mcg PO DAILY 03/23/23 09/22/24 History Nitroglycerin Sl Tabs [Nitrostat] 0.4 mg SL Q5M PRN 03/23/23 09/22/24 History Pantoprazole [Protonix] 40 mg PO DAILY 05/26/24 09/22/24 History Albuterol Sulfate/Budesonide 2 puff INHALATION RT-Q4H PRN 09/22/24 09/22/24 History [Airsupra 90-80 Mcg Inhaler] Atenolol/Chlorthalidone 1 tab PO DAILY 09/22/24 09/22/24 History [Atenolol/Chlorthalidone 50-25] Fexofenadine HCl [Codi Allergy] 180 mg PO DAILY 09/22/24 09/22/24 History Gabapentin 800 mg PO TID 09/22/24 09/22/24 History Lumateperone Tosylate [Caplyta] 10.5 mg PO HS 09/22/24 09/22/24 History Montelukast [Singulair] 10 mg PO DAILY 09/22/24 09/22/24 History Allergies Allergy/AdvReac Type Severity Reaction Status Date / Time Fish Containing Products Allergy Itching Verified 09/22/24 14:41 milk Allergy Itching Verified 09/22/24 14:41 Physical Exam Vitals: Vital Signs Temp Pulse Pulse Resp BP BP Pulse Ox 09/23/24 08:06 96 09/23/24 07:52 94 96 09/23/24 07:39 98.3 F 95 17 126/66 97 09/23/24 02:00 98.1 F 88 17 127/73 100 09/23/24 00:00 18 09/22/24 23:37 98 F 84 18 149/79 99 09/22/24 23:06 163/82 09/22/24 22:25 194/84 09/22/24 22:20 90 19 204/93 100 09/22/24 22:10 96 18 145/71 97 09/22/24 22:00 97.5 F L 88 18 178/92 84 L 09/22/24 18:56 98.0 F 69 16 98/43 98 09/22/24 17:16 70 18 127/70 97 09/22/24 17:10 98.1 F 69 18 111/54 96 09/22/24 15:00 68 18 127/73 93 L 09/22/24 14:00 67 18 127/71 99 09/22/24 13:20 69 16 137/57 99 09/22/24 12:20 97.9 F 77 18 121/76 99 FiO2 09/23/24 08:06 09/23/24 07:52 21 09/23/24 07:39 09/23/24 02:00 09/23/24 00:00 09/22/24 23:37 09/22/24 23:06 09/22/24 22:25 09/22/24 22:20 09/22/24 22:10 09/22/24 22:00 09/22/24 18:56 09/22/24 17:16 09/22/24 17:10 09/22/24 15:00 09/22/24 14:00 09/22/24 13:20 09/22/24 12:20 Intake and Output 09/22/24 09/23/24 09/23/24 22:59 06:59 14:59 Intake Total 120 20 Balance 120 20 Intake: Oral 120 20 Other: Voiding Method Toilet Toilet # Voids 0 Weight 79.379 kg Results 09/22/24 20:34 09/22/24 20:34 Cardiac Enzymes 09/22/24 09/22/24 09/22/24 Range/Units 13:11 13:11 16:35 AST 28 (14-36) U/L Troponin I <0.012 <0.012 (0.000-0.034) ng/mL 09/22/24 09/22/24 09/22/24 Range/Units 19:37 20:34 20:34 AST 28 (14-36) U/L Troponin I <0.012 <0.012 (0.000-0.034) ng/mL Coagulation 09/22/24 Range/Units 13:11 PT 10.3 (10.0-12.5) sec APTT 23.1 (22.0-30.0) sec CBC 09/22/24 09/22/24 Range/Units 13:11 20:34 WBC 13.38 H 16.00 H (4.50-10.00) 10*3/uL RBC 4.25 4.24 (4.10-5.20) 10*6/uL Hgb 12.1 12.5 (12.0-15.0) g/dL Hct 37.3 37.4 (37.2-46.3) % Plt Count 503 H 496 H (140-440) 10*3/uL Comprehensive Metabolic Panel 09/22/24 09/22/24 Range/Units 13:11 20:34 Sodium 139 137 (137-145) mmol/L Potassium 4.3 4.0 (3.5-5.1) mmol/L Chloride 102 103 (98-107) mmol/L Carbon Dioxide 28 21 L (22-30) mmol/L BUN 16 17 (7-17) mg/dL Creatinine 1.00 1.14 H (0.52-1.04) mg/dL Glucose 94 174 H (74-99) mg/dL Calcium 9.8 9.5 (8.4-10.2) mg/dL AST 28 28 (14-36) U/L ALT 20 18 (4-34) U/L Alkaline Phosphatase 125 110 (38-126) U/L Total Protein 7.9 7.2 (6.3-8.2) g/dL Albumin 4.4 3.8 (3.5-5.0) g/dL Current Medications Generic Name Dose Route Start Last Admin Trade Name Freq PRN Reason Stop Dose Admin Albuterol Sulfate 2.5 mg 09/22/24 21:00 09/23/24 07:51 Albuterol Nebulized 2.5 Mg/3 Ml INHALATION 2.5 mg RT-QID JAX Administration Aspirin 325 mg 09/23/24 09:00 09/23/24 07:42 Aspirin 325 Mg Tab PO 325 mg DAILY JAX Administration Atenolol 50 mg 09/23/24 09:00 09/23/24 07:42 Atenolol 50 Mg Tab PO 50 mg DAILY JAX Administration Atorvastatin Calcium 40 mg 09/23/24 09:00 09/23/24 07:42 Atorvastatin 40 Mg Tab PO 40 mg DAILY JAX Administration Budesonide 0.5 mg 09/22/24 20:50 09/23/24 07:51 Budesonide 0.5 Mg/2 Ml Nebu INHALATION 0.5 mg RT-BID JAX Administration Chlorthalidone 25 mg 09/23/24 09:00 Chlorthalidone 25 Mg Tab PO DAILY JAX Duloxetine HCl 60 mg 09/22/24 21:00 09/23/24 07:42 Duloxetine Hcl 60 Mg Capsule.Dr PO 60 mg BID JAX Administration Gabapentin 800 mg 09/22/24 16:00 09/23/24 07:42 Gabapentin 400 Mg Cap PO 800 mg TID JAX Administration Hydralazine HCl 10 mg 09/22/24 22:42 09/22/24 23:08 Hydralazine Hcl 20 Mg/Ml 1 Ml Vial IVP 10 mg Q4HR PRN Administration Blood Pressure - High Hydroxyzine HCl 25 mg 09/22/24 22:43 09/23/24 06:15 Hydroxyzine Hcl 25 Mg Tab PO 25 mg Q6HR PRN Administration Itching Levothyroxine Sodium 50 mcg 09/23/24 06:30 09/23/24 06:16 Levothyroxine 50 Mcg Tab PO 50 mcg 0630 JAX Administration Loratadine 10 mg 09/23/24 09:00 09/23/24 07:42 Loratadine 10 Mg Tab PO 10 mg DAILY JAX Administration Lorazepam 0.5 mg 09/22/24 22:44 Lorazepam 2 Mg/Ml Inj IV Q6HR PRN Anxiety Methylprednisolone Sodium Succinate 40 mg 09/22/24 20:00 09/23/24 04:49 Methylprednisolone Sod Succi 40 Mg/Ml 1 Ml Vial IV 40 mg Q8H JAX Administration Montelukast Sodium 10 mg 09/23/24 09:00 09/23/24 07:42 Montelukast 10 Mg Tab PO 10 mg DAILY JAX Administration Morphine Sulfate 2 mg 09/22/24 17:43 09/23/24 00:39 Morphine Sulfate 2 Mg/Ml Syringe IVP 2 mg Q4HR PRN Administration Pain/Discomfort Nitroglycerin 0.4 mg 09/22/24 15:20 Nitroglycerin Sl Tabs 0.4 Mg Tab SUBLINGUAL Q5M PRN Chest Pain Nitroglycerin 1 inch 09/22/24 18:00 09/23/24 06:16 Nitroglycerin Oint 1 Inch/Gm Packet TOPICAL 1 inch Q6HR JAX Administration Caplyta ( 1 each 09/22/24 21:00 09/22/24 20:02 Lumateperone PO Not Given Tosylate) 10.5 Mg HS [facility] Capsule Pantoprazole Sodium 40 mg 09/23/24 09:00 09/23/24 07:42 Pantoprazole 40 Mg Tablet PO 40 mg DAILY JAX Administration Intake and Output 09/22/24 09/23/24 09/23/24 22:59 06:59 14:59 Intake Total 120 20 Balance 120 20 Intake: Oral 120 20 Other: Voiding Method Toilet Toilet # Voids 0 Weight 79.379 kg 09/22/24 20:34 09/22/24 20:34
[2024-09-23 10:42] LABS: Cholesterol 136.00 mg/dL (0.00-200.00); HDL Cholesterol 47.50 mg/dL (40.00-60.00); LDL Cholesterol,Calculated 77.9 mg/dL (0.0-131.0); Triglycerides 52.90 mg/dL (0.00-149.00); VLDL Calculation 10.58 mg/dL (5.00-40.00)
[2024-09-23 11:38] VITALS: RESP 16
[2024-09-23] MEDS ORDERED: LORazepam 1 MG/0.5 ML VIAL IV PRN (14:22)
--- NOTE | 2024-09-23 20:14 | CA ---
Transthoracic Echo Report Name: Lakisha Kingsley Age: 54 Gender: F : 1970 Exam Date: 09/23/2024 08:47 Exam Location: [facility] Ht (in): 63 Wt (lb): 175 Ordering Physician: Natan Elizalde MD Attending/Referring Phys: Dead Mail Checker Wilner Kelley RDCS Procedure CPT: Indications: CP, Unstable angina Cardiac Hx: Technical Quality: Contrast 1: Total Dose (mL): Contrast 2: Total Dose (mL): MEASUREMENTS (Male / Female) Normal Values 2D ECHO LV Diastolic Diameter PLAX 4.4 cm 4.2 - 5.9 / 3.9 - 5.3 cm LV Systolic Diameter PLAX 3.2 cm IVS Diastolic Thickness 1.1 cm 0.6 - 1.0 / 0.6 - 0.9 cm LVPW Diastolic Thickness 1.0 cm 0.6 - 1.0 / 0.6 - 0.9 cm LV Relative Wall Thickness 0.5 RV Internal Dim ED PLAX 2.8 cm LA Systolic Diameter LX 3.0 cm 3.0 - 4.0 / 2.7 - 3.8 cm LV Diastolic Volume MOD BP 42.3 cm??? 67 - 155 / 56 - 104 cm??? LV Systolic Volume MOD BP 20.0 cm??? 22 - 58 / 19 - 49 cm??? LV Ejection Fraction MOD BP 52.7 % >= 55 % LV Diastolic Volume MOD 4C 46.4 cm??? LV Systolic Volume MOD 4C 23.7 cm??? LV Ejection Fraction MOD 4C 49.0 % LV Diastolic Length 4C 8.1 cm LV Systolic Length 4C 6.2 cm LV Diastolic Volume MOD 2C 38.1 cm??? LV Systolic Volume MOD 2C 15.2 cm??? LV Ejection Fraction MOD 2C 60.2 % LV Diastolic Length 2C 7.9 cm LV Systolic Length 2C 7.0 cm LA Volume 31.2 cm??? 18 - 58 / 22 - 52 cm??? LA Volume Index 16.4 cm???/m??? 16 - 28 cm???/m??? M-MODE Aortic Root Diameter MM 2.8 cm LA Systolic Diameter MM 2.8 cm LA Ao Ratio MM 1.0 AV Cusp Separation MM 1.8 cm DOPPLER AV Peak Velocity 185.3 cm/s AV Peak Gradient 13.7 mmHg AV Mean Velocity 126.5 cm/s AV Mean Gradient 7.3 mmHg AV Velocity Time Integral 37.5 cm AI Peak Velocity 483.4 cm/s AI Peak Gradient 93.5 mmHg AI Pressure Half Time 444.8 ms LVOT Peak Velocity 111.9 cm/s LVOT Peak Gradient 5.0 mmHg LVOT Velocity Time Integral 18.7 cm MV Peak Velocity 107.0 cm/s MV Peak Gradient 4.6 mmHg MV Mean Velocity 72.1 cm/s MV Mean Gradient 2.3 mmHg MV Velocity Time Integral 29.7 cm MV Area PHT 3.7 cm??? Mitral E Point Velocity 77.8 cm/s Mitral A Point Velocity 93.4 cm/s Mitral E to A Ratio 0.8 MV Deceleration Time 205.2 ms FINDINGS Left Ventricle Left ventricular ejection fraction is estimated at 50-55 %. Mildly increased septal wall thickness. Left ventricular cavity size normal. Right Ventricle Normal right ventricular size and function. Right Atrium Normal right atrial size. No right atrial thrombus or mass seen. Left Atrium Normal left atrial size. No left atrial thrombus or mass present. Mitral Valve No mitral stenosis. Mild mitral regurgitation. Aortic Valve Trileaflet aortic valve. No aortic stenosis. Mild aortic regurgitation. Tricuspid Valve No tricuspid stenosis. Trace tricuspid regurgitation. Pulmonic Valve No pulmonic stenosis. Mild pulmonic regurgitation. Pericardium Normal pericardium. No pericardial or pleural effusion. Aorta Normal size aortic root and proximal ascending aorta. CONCLUSIONS LVEF 55% Mild concentric LVH No obvious regional wall motion abnormality Mild aortic regurgitation, mild mitral regurgitation Previewed by: Dr Mickey Leonardo (Electronically Signed) Final Date: 23 September 2024 20:13
--- NOTE | 2024-09-24 02:07 | HP ---
HISTORY AND PHYSICAL HISTORY OF PRESENT ILLNESS: A 54-year-old female, came in with chest pain, pleuritic in nature, musculoskeletal related when she moves arms and legs or coughs, is elevated with atypical chest pain, rule out of HI. She had hypertension at which time she was admitted to the hospital. She ruled out HI. No nausea, vomiting, or diarrhea. HOME MEDICINES: Include: 1. Cymbalta 60 b.i.d. 2. Lipitor 40 daily. 3. Synthroid 50 mcg daily. 4. Nitrostat sublingual p.r.n. 5. Protonix 40 mg daily. 6. two puffs q.4 hours p.r.n. . 7. Chlorthalidone 12.5 one tablet daily. 8. Codi 180 daily. 9. Gabapentin 800 t.i.d. 10. 7.5 daily. 11.Singulair 10 mg daily. ALLERGIES: Fish and milk. PAST MEDICAL HISTORY: Fibromyalgia, GERD, dyslipidemia, hypertension, hypothyroidism. PAST SURGICAL HISTORY: Back surgery, , hysterectomy, tonsillectomy, surgery, cervical fusion, thyroidectomy, colonoscopy, EGD, bilateral breast reduction, abdominoplasty. FAMILY HISTORY: Father with cancer of the lung. PHYSICAL EXAMINATION: GENERAL: Well developed in no acute distress. CARDIOVASCULAR: S1, S2. LUNGS: Transmitted upper airway sounds, scattered rhonchi and wheeze. HEMATOLOGY: Negative Homans. PSYCH: Fair mood and affect. GI: Soft. VASCULAR: Normal dorsalis pedis, posterior radial pulses. NEUROLOGIC: Cranial nerves intact. VITAL SIGNS: Blood pressure 120s/70s, O2 of 99% on room air, respiratory rate 16-18, pulse 60s-70s. LABORATORY DATA: EKG, sinus rhythm. White count 13.38, hemoglobin 12.1, and platelets 503. ASSESSMENT AND PLAN: Atypical chest pain, costochondritis, chronic obstructive pulmonary disease. Prognosis guarded. Neurologically, cranial nerves intact. Rule out PE, rule out heart attack. Cardiology consult. MMODL / IJN: [id number] /
[2024-09-24 04:59] VITALS: TEMP 98
[2024-09-24] MEDS: ASPIRIN 81 MG PO SCH (08:29)
[2024-09-24 08:37] VITALS: BP 144/80
[2024-09-24 08:46] VITALS: PULSE 78
--- NOTE | 2024-09-24 13:03 | P.PN ---
Subjective HISTORY OF PRESENT ILLNESS: This is a 54-year-old female with a past medical history significant for hypertension, hyperlipidemia, hypothyroidism, anxiety, nicotine dependence, and obesity. Patient used to follow-up in the office with Dr. Hawthorne but has not been seen since August 2021. We have been asked to see the patient in consultation for chest pain. Patient examined at the bedside. Patient states she has been having some chest discomfort recently. She states the pain is usually when she is doing activities like vacuuming. However she states this time she was not doing anything when the pain started. She states the pain starts right in the middle of her chest near her sternum and radiates into her back and shoulder blades. She states usually she will rest and take Tylenol which will help the pain but yesterday it did not. She does report the pain is worse with chest wall palpation. She also reports that the pain is worse with deep inspiration and also with movements of her upper extremities. DIAGNOSTICS: - EKG reveals sinus mechanism with no signs of acute ischemia. - Chest xray negative for acute process. - Chest CT negative for acute abnormality in the chest - Laboratory data: WBC 16.0. Hemoglobin 12.5. Platelet count 496. D-dimer 0.81. Sodium 137. Potassium 4.0. BUN 17. Creatinine 1.14. - Current home cardiac medications include atenolol/chlorthalidone 50-25mg daily, Lipitor 40 mg daily - No previous echocardiogram available in EMR for review - Cardiac catheterization history: June 2021 at [facility] revealing mild to moderate nonobstructive disease involving the diagonal branch. Chest pain and elevated troponin may be secondary to plaque rupture. Medical management was recommended. 09/24/2024 Patient examined this morning at the bedside. Patient currently denies shortness of breath. She reports reproducible chest pain with movement. Vital signs are stable. Telemetry reveals sinus mechanism with a heart rate in the 50s. Echocardiogram completed revealing ejection fraction 50 to 55%, mild aortic regurgitation, mild MR, trace TR. PHYSICAL EXAM: VITAL SIGNS: Reviewed. GENERAL: Well-developed in no acute distress. HEENT: Head is normocephalic. Pupils are equal, round. Sclerae anicteric. Mucous membranes of the mouth are moist. Neck supple. No JVD or thyromegaly LUNGS: Respirations even and unlabored. Lungs essentially clear to auscultation bilaterally. HEART: Regular rate and rhythm. S1 and S2 heard. ABDOMEN: Soft. Nondistended. Nontender. EXTREMITIES: Normal range of motion. No clubbing or cyanosis. Peripheral pulses intact. No lower extremity edema NEUROLOGIC: Awake and alert. Oriented x 3. 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 Hawthorne Nurse practitioner note has been reviewed by physician. Signing provider agrees with the documented findings, assessment, and plan of care documented by PRESIDENT AND CHIEF EXECUTIVE OFFICER as a scribe. Objective - Vital Signs Vital signs: Vital Signs Temp 98.0 F 09/24/24 04:00 Pulse 78 09/24/24 08:45 Resp 16 09/24/24 08:00 BP 144/80 09/24/24 08:00 Pulse Ox 99 09/24/24 08:00 FiO2 21 09/23/24 07:52 Intake & Output 09/23/24 09/24/24 09/24/24 18:59 06:59 18:59 Intake Total 360 700 Balance 360 700 Intake: Oral 360 700 Other: Voiding Method Toilet Toilet # Voids 3 3 - Labs CBC & Chem 7: 09/22/24 20:34 09/22/24 20:34
== END 2024-09-24 09:28 | disposition home or self-care (01) ==
LOC: EC 12:15 → 1SOBS 15:22 → 3SCARD 23:32
PROVIDERS: ADMIT Family Medicine; ATTEND Family Medicine
DX: R07.89 Other chest pain (principal); M94.0 Chondrocostal junction syndrome [Tietze]; J44.9 Chronic obstructive pulmonary disease, unspecified; I10 Essential (primary) hypertension; E78.5 Hyperlipidemia, unspecified; K21.9 Gastro-esophageal reflux disease without esophagitis; F32.A Depression, unspecified; E89.0 Postprocedural hypothyroidism; F41.9 Anxiety disorder, unspecified; M79.7 Fibromyalgia; I25.10 Atherosclerotic heart disease of native coronary artery without angina pectoris; I25.2 Old myocardial infarction; E66.9 Obesity, unspecified; F17.200 Nicotine dependence, unspecified, uncomplicated; Z79.899 Other long term (current) drug therapy; Z79.890 Hormone replacement therapy
CPT/HCPCS: 96376 ×2; 96374 ×2; 96375; 99285; 36415; 94640 ×3; 94760; 93005; 93306; 85379; 80061; 80053; 83605; 83735; 84484 ×2; 85025; 85610; 85730; 71045; 71046; 71250; G0378 ×3; J0360; J2270 ×3; J2919 ×3